=== PATIENT | male | born 1980 | race Caucasian/White ===

== ENCOUNTER 2016-09-05 20:09 | Emergency (ER) | payer SELFPAY ==
[~2016-09-05 20:09] MED LIST: NAPR500 PO; SUBO8MIS SL
[2016-09-05 20:11] VITALS: BP 155/97; PULSE 70; RESP 16; TEMP 98.6; O2SAT 100
--- NOTE | 2016-09-05 20:37 | PD ---
Physical Exam Time Seen by Provider: 20:36 Narrative 36yo M c/o R upper tooth pain since last night. Woke up with facial swelling this morning. Denies fever, vomiting. Patient seen in triage. VS reviewed. Awaiting bed placement. Data Data Last Documented VS Vital Signs Date Time Temp Pulse Resp B/P Pulse Ox O2 Delivery O2 Flow Rate FiO2 09/05/16 20:11 98.6 70 16 155/97 100 Room Air MDM Supervised Visit with JELLY: Danii Nina Sep 05, 2016 20:37
[2016-09-05] MEDS ORDERED: PENI500T PO (22:27)
--- NOTE | 2016-09-05 22:29 | PD ---
HPI Chief Complaint: Oral / Dental Pain or Problem Time Seen by Provider: 22:15 Travel History International Travel<30 days: No Contact w/Intl Traveler<30days: No Traveled to known affect area: No History of Present Illness HPI 36-year-old male arrives with right upper dentalgia and swelling of the right upper face. Symptoms started overnight. He reports fracturing the right upper first molar sometime ago. He's had no fever. The pain is worse with palpation. There is no radiation at this point. He states he is working to obtain a dentist appointment and will probably see one next week, approximately 7 days or so from now. PFSH Past Medical History Arthritis: No Asthma: No Autoimmune Disease: No Blood Disorders: No Anxiety: No Depression: No Heart Rhythm Problems: No Cancer: No Cardiovascular Problems: No High Cholesterol: No Chemotherapy: No Chest Pain: No Congestive Heart Failure: No COPD: No Cerebrovascular Accident: No Diabetes: No Endocrine: No GERD: No Glaucoma: No Genitourinary: No Headaches: No Hepatitis: No Hiatal Hernia: No Hypertension: No Kidney Stones: No Musculoskeletal: No Neurologic: No Psychiatric: No Respiratory: No Myocardial Infarction: No Radiation Therapy: No Renal Failure: No Seizures: No Sickle Cell Disease: No Sleep Apnea: No Thyroid Disease: No Ulcer: No Past Surgical History Abdominal Surgery: No AICD: No Cardiac Surgery: No Ear Surgery: No Endocrine Surgery: No Eye Surgery: No Genitourinary Surgery: No Gynecologic Surgery: No Oral Surgery: Yes (TONSILLECTOMY) Pacemaker: No Thoracic Surgery: No Tonsillectomy: Yes Other Surgery: Yes Social History Alcohol Use: Yes (denies) Tobacco Use: Yes (1 PK DAILY) Substance Use: Yes Allergies-Medications (Allergen,Severity, Reaction): Coded Allergies: No Known Allergies (Verified , 09/05/16) Reported Meds & Prescriptions Reported Meds & Active Scripts Active Penicillin V Potassium 500 Mg Tab 500 Mg PO Q6H 7 Days Naprosyn (Naproxen) 500 Mg Tab 500 Mg PO BID PRN Reported Suboxone 8 mg/2 mg 8 mg/2 mg Subl 1 Strip SL DAILY SUBLINGUAL STRIP. Review of Systems General / Constitutional: No: Fever Physical Exam Narrative GENERAL: 36 yo M, WNWD, NAD DENTITION: R upper first molar with fracture which is old/chronic, there is TTP though not severe; minimal swelling R face with minimal TTP; moderate generalized decay of dentition present throughout otherwise. SKIN: Warm and dry. HEAD: Normocephalic. EYES: No scleral icterus. No injection or drainage. NECK: Supple, trachea midline. No JVD or lymphadenopathy. Data Data Last Documented VS Vital Signs Date Time Temp Pulse Resp B/P Pulse Ox O2 Delivery O2 Flow Rate FiO2 09/05/16 20:11 98.6 70 16 155/97 100 Room Air VS reviewed Orders Penicillin V Potassium (Veetids) (09/05/16 22:30) MDM Medical Decision Making Medical Screen Exam Complete: Yes Emergency Medical Condition: Yes Medical Record Reviewed: Yes Differential Diagnosis Dental fracture, abscess, dental carry Narrative Course Scripts as below. Diagnosis Primary Impression: Dental abscess Additional Impression: Tooth fracture Qualified Code: S02.5XXA - Closed fracture of tooth, initial encounter Referrals: Dentist 1 week Additional Instructions: You have a choice when it comes to health care, and we are glad that you chose [facility]. Hopefully, we have met your expectations on today's visit. You are welcome to return to [facility] at any time, as we are committed to meeting the health care needs of our community. Med/Other Pt SpecificInfo: Prescription(s) given Scripts Penicillin V Potassium 500 Mg [id number] Mg PO Q6H 7 Days Ref 0 Prov:Lauri Bañuelos MD 09/05/16 Disposition: 01 DISCHARGE HOME Condition: Stable Lauri Bañuelos MD Sep 05, 2016 22:29
[2016-09-05] MEDS ORDERED: PENICILLIN V POTASSIUM 500 MG TAB PO ONE (22:30)
== END 2016-09-05 23:02 | disposition home or self-care (01) ==
LOC: NEPD 20:09
DX: K04.7 Periapical abscess without sinus (principal); S02.5XXA Fracture of tooth (traumatic), initial encounter for closed fracture; X58.XXXA Exposure to other specified factors, initial encounter
CPT/HCPCS: 99283

== ENCOUNTER 2016-11-04 17:23 | Emergency (ER) | payer SELFPAY ==
[~2016-11-04 17:23] MED LIST changes: +PENI500T PO
[2016-11-04 17:34] VITALS: BP 123/70; PULSE 80; RESP 18; TEMP 98.2; O2SAT 98
[2016-11-04 17:40] VITALS: BP 123/70; PULSE 70; RESP 12; TEMP 98.2; O2SAT 98
[2016-11-04] MEDS ORDERED: NALOXONE HCL 2 MG/2 ML VIAL IV PUSH ONE (17:45)
[2016-11-04] MEDS ORDERED: SODIUM CHLOR 0.9% 1000 ML INJ 1,000 ML IV SCH (18:00)
--- NOTE | 2016-11-04 18:24 | PD ---
HPI Chief Complaint: OD/ Ingestion Time Seen by Provider: 17:43 Travel History International Travel<30 days: No Contact w/Intl Traveler<30days: No Traveled to known affect area: No History of Present Illness HPI 36 years old male was brought in by EMS after patient was found with severe drowsiness this afternoon. Patient's acquaintance found patient was extremely drowsy this afternoon. Possible IV drug abuse. EMS was called. Patient was given Narcan 0.4 mg IV with improvement of mentation. Patient was transported to the ED. Patient denies any headache. Patient denies any neck pain. Patient denies any chest pain or shortness of breath. Patient denies abdominal pain. Patient denies any focal weakness or numbness remedy. Patient denies any IV drug abuse. Patient states that he has history of IV drug abuse in the past but not recently. PFSH Past Medical History Arthritis: No Asthma: No Autoimmune Disease: No Blood Disorders: No Anxiety: No Depression: No Heart Rhythm Problems: No Cancer: No Cardiovascular Problems: No High Cholesterol: No Chemotherapy: No Chest Pain: No Congestive Heart Failure: No COPD: No Cerebrovascular Accident: No Diabetes: No Endocrine: No Gastrointestinal Disorders: No GERD: No Glaucoma: No Genitourinary: No Headaches: No Hepatitis: No Hiatal Hernia: No Hypertension: No Kidney Stones: No Musculoskeletal: No Neurologic: No Psychiatric: No Respiratory: No Myocardial Infarction: No Radiation Therapy: No Renal Failure: No Seizures: No Sickle Cell Disease: No Sleep Apnea: No Thyroid Disease: No Ulcer: No Past Surgical History Abdominal Surgery: No AICD: No Cardiac Surgery: No Ear Surgery: No Endocrine Surgery: No Eye Surgery: No Genitourinary Surgery: No Gynecologic Surgery: No Neurologic Surgery: No Oral Surgery: Yes (TONSILLECTOMY) Pacemaker: No Thoracic Surgery: No Tonsillectomy: Yes Other Surgery: Yes Social History Alcohol Use: No Tobacco Use: No Substance Use: Yes (iv drug use) Allergies-Medications (Allergen,Severity, Reaction): Coded Allergies: No Known Allergies (Verified , 11/04/16) Reported Meds & Prescriptions Reported Meds & Active Scripts Active Penicillin V Potassium 500 Mg Tab 500 Mg PO Q6H 7 Days Naprosyn (Naproxen) 500 Mg Tab 500 Mg PO BID PRN Reported Suboxone 8 mg/2 mg 8 mg/2 mg Subl 1 Strip SL DAILY SUBLINGUAL STRIP. Review of Systems General / Constitutional: No: Fever Eyes: No: Visual changes HENT: No: Headaches Cardiovascular: No: Chest Pain or Discomfort Respiratory: No: Shortness of Breath Gastrointestinal: No: Abdominal Pain Genitourinary: No: Dysuria Musculoskeletal: No: Pain Skin: No Rash Neurologic: No: Weakness Psychiatric: No: Depression Endocrine: No: Polydipsia Hematologic/Lymphatic: No: Easy Bruising Physical Exam Narrative GENERAL: Well-nourished, well-developed patient. SKIN: Focused skin assessment warm/dry. HEAD: Normocephalic. EYES: No scleral icterus. No injection or drainage. Pinpoint pupils. NECK: Supple, trachea midline. No JVD or lymphadenopathy. CARDIOVASCULAR: Regular rate and rhythm without murmurs, gallops, or rubs. RESPIRATORY: Breath sounds equal bilaterally. No accessory muscle use. GASTROINTESTINAL: Abdomen soft, non-tender, nondistended. MUSCULOSKELETAL: No cyanosis, or edema. Patient has track lyman on the right arm antecubital area and forearm area. BACK: Nontender without obvious deformity. No CVA tenderness. Neurologic exam: Patient is a lethargic however answer questions appropriately. Patient moves all extremity well. No obvious focal neurological deficit. Patient has a steady gait. Data Data Last Documented VS Vital Signs Date Time Temp Pulse Resp B/P Pulse Ox O2 Delivery O2 Flow Rate FiO2 11/04/16 17:40 98.2 70 12 123/70 98 2 11/04/16 17:40 Room Air Orders Electrocardiogram (11/04/16 17:43) Complete Blood Count With Diff (11/04/16 17:43) Comprehensive Metabolic Panel (11/04/16 17:43) Creatine Kinase (Cpk) (11/04/16 17:43) Troponin I (11/04/16 17:43) Prothrombin Time / Inr (Pt) (11/04/16 17:43) Act Partial Throm Time (Ptt) (11/04/16 17:43) Urinalysis - C+S If Indicated (11/04/16 17:43) Iv Access Insert/Monitor (11/04/16 17:43) Ecg Monitoring (11/04/16 17:43) Oximetry (11/04/16 17:43) Drug Screen, Random Urine (11/04/16 17:43) Alcohol (Ethanol) (11/04/16 17:43) Naloxone Inj (Narcan Inj) (11/04/16 17:45) Sodium Chlor 0.9% 1000 Ml Inj (Ns 1000 M (11/04/16 18:00) MDM Medical Decision Making Medical Screen Exam Complete: Yes Emergency Medical Condition: Yes Differential Diagnosis Differential diagnosis including drug abuse, electrolyte imbalance, dehydration , TIA, CVA, sepsis. Narrative Course 36 years old male was brought in for drowsiness. Possible history of IV drug abuse. Patient denies IV drug abuse however patient has track lyman on the right arm which he told me that they are not new. Patient decided to leave AMA , refused blood test x-ray CT. Patient warned of risk of leaving. Diagnosis Primary Impression: Altered mental status Qualified Code: R40.4 - Transient alteration of awareness Patient Instructions: General Instructions Additional Instructions: Patient leaves AMA. Disposition: 07 AGAINST MEDICAL ADVICE Condition: Serious Jack Celeste MD Nov 04, 2016 18:24
== END 2016-11-04 18:51 | disposition left against medical advice (07) ==
LOC: NEPC 17:23
DX: R40.4 Transient alteration of awareness (principal)
CPT/HCPCS: 99283

== ENCOUNTER 2017-04-22 09:47 | Emergency (ER) | payer SELFPAY ==
[~2017-04-22] VITALS: Ht 170.2 cm; Wt 68.0 kg
[2017-04-22 09:53] VITALS: BP 126/79; PULSE 90; RESP 16; TEMP 98.8; O2SAT 97
--- NOTE | 2017-04-22 10:36 | PD ---
HPI Chief Complaint: Pain: Acute or Chronic Time Seen by Provider: 10:21 Travel History International Travel<30 days: No Contact w/Intl Traveler<30days: No Traveled to known affect area: No History of Present Illness HPI Patient comes in complaining of right knee pain ongoing for 3 days. Patient states pain burning-like sensation anterior aspect of right knee. Patient denies any radiation of pain. Patient has been taking ibuprofen for the pain with minimal relief of symptoms. Pains worse with walking. Patient denies any known injury or previous episodes like this. Denies any fevers, chest pain, shortness of breath, numbness or tingling, or weakness. PFSH Past Medical History Arthritis: No Asthma: No Autoimmune Disease: No Blood Disorders: No Anxiety: No Depression: No Heart Rhythm Problems: No Cancer: No Cardiovascular Problems: No High Cholesterol: No Chemotherapy: No Chest Pain: No Congestive Heart Failure: No COPD: No Cerebrovascular Accident: No Diabetes: No Endocrine: No Gastrointestinal Disorders: No GERD: No Glaucoma: No Genitourinary: No Headaches: No Hepatitis: No Hiatal Hernia: No Hypertension: No Kidney Stones: No Musculoskeletal: No Neurologic: No Psychiatric: No Respiratory: No Myocardial Infarction: No Radiation Therapy: No Renal Failure: No Seizures: No Sickle Cell Disease: No Sleep Apnea: No Thyroid Disease: No Ulcer: No Past Surgical History Abdominal Surgery: No AICD: No Cardiac Surgery: No Ear Surgery: No Endocrine Surgery: No Eye Surgery: No Genitourinary Surgery: No Gynecologic Surgery: No Neurologic Surgery: No Oral Surgery: Yes (TONSILLECTOMY) Pacemaker: No Thoracic Surgery: No Tonsillectomy: Yes Other Surgery: Yes Social History Alcohol Use: No Tobacco Use: No Substance Use: Yes (iv drug use) Allergies-Medications (Allergen,Severity, Reaction): Coded Allergies: No Known Allergies (Verified Adverse Reaction, Unknown, 04/22/17) Reported Meds & Prescriptions Reported Meds & Active Scripts Active Diclofenac Sodium DR (Diclofenac Sodium) 75 Mg Tabdr 75 Mg PO Q12HR PRN Penicillin V Potassium 500 Mg Tab 500 Mg PO Q6H 7 Days Naprosyn (Naproxen) 500 Mg Tab 500 Mg PO BID PRN Reported Suboxone 8 mg/2 mg 8 mg/2 mg Subl 1 Strip SL DAILY SUBLINGUAL STRIP. Review of Systems Except as stated in HPI: all other systems reviewed are Neg Physical Exam Narrative GENERAL: Well-developed, well nourished, in no acute distress, and non-ill appearing. SKIN: Focused skin assessment warm and dry. HEAD: Atraumatic. Normocephalic. EYES: Pupils equal and round. EOMI. No scleral icterus. No injection or drainage. ENT: No nasal bleeding or discharge. Mucous membranes pink and moist. NECK: Trachea midline. Supple. No nuclear rigidity. CARDIOVASCULAR: Dorsal pulses 2+, intact, equal bilaterally. Capillary refill less than 2 seconds. RESPIRATORY: No accessory muscle use. No respiratory distress. MUSCULOSKELETAL: No obvious deformities. No clubbing. No cyanosis. No edema. Full range of motion. Knee: Negative patellar apprehension, varus and valgus maneuvers, anterior draw test, and María test. Pulses equal BL distal to injury. Capillary refill less than 2 seconds distal to injury and equal BL. FROM distal to injury and equal BL. Strength distal to injury equal BL. NV intact distal to injury. Dorsal pulses equal BL. Sensation equal BL 1st web space. Patient reports tenderness to palpation over the prepatellar bursa small fluid collection noted. It is afebrile, nonerythematous, without crepitus. There is no signs of infection. NEUROLOGICAL: Awake and alert. No obvious cranial nerve deficits. Motor grossly within normal limits. Normal speech. PSYCHIATRIC: Appropriate mood and affect; insight and judgment normal. Data Data Last Documented VS Vital Signs Date Time Temp Pulse Resp B/P (MAP) Pulse Ox O2 Delivery O2 Flow Rate FiO2 04/22/17 10:56 04/22/17 09:53 98.8 90 16 97 Orders Orders Ed Discharge Order (04/22/17 10:31) Splint Or Brace Apply/Monitor (04/22/17 10:31) [facility] Medical Decision Making Medical Screen Exam Complete: Yes Emergency Medical Condition: Yes Differential Diagnosis Fracture, strain, contusion, bursitis, septic joint, gout, pseudogout Narrative Course The patient appears to have acute bursitis involving the right knee. There is no evidence to suggest infectious bursitis at this time. There is no trauma to suspect contusion, strain or fracture. There is no clinical evidence to suggest gout or pseudogout, osteoarthritis, Rheumatoid arthritis, or septic arthritis. There is also no evidence to suggest tendonitis. The patient was placed on NSAID medication. The patient was instructed on ice packs as well. The patient was instructed to follow-up with to orthopedics. The patient agreed with plan. Patient in no obvious distress upon re-evaluation. Patient was asked if they wanted to speak to my attending, which the patient did not wish to do at this time. Any questions/concerns in reference to patient diagnosis/condition discussed and clarified prior to patient's discharge. Reinforced sheer importance of close follow up with patient's primary physician or primary care clinic. Instructed patient to return to ED immediately, if symptoms return/ worsen. Patient showed understanding of above instructions. Further instructions and recommendations were detailed in discharge paperwork. Patient ambulated without difficulty out of ED at discharge. Diagnosis Primary Impression: Bursitis of right knee Qualified Codes: M70.41 - Prepatellar bursitis, right knee Referrals: Sukhdev Gilbert MD [facility] Patient Instructions: General Instructions, Knee Bursitis (ED) Additional Instructions: Follow-up with your primary care physician and/or orthopedics this week for reevaluation. Take all medication as prescribed. Apply ice to affected area 20 minutes per hour as needed for pain. Return to the emergency department if symptoms get worse. Med/Other Pt SpecificInfo: Prescription(s) given Scripts Diclofenac Sodium DR (Diclofenac Sodium DR) 75 Mg Tabdr 75 MG PO Q12HR Y for PAIN SCALE 1 TO 10, #14 TAB 0 Refills Prov: Christine Cueto MD 04/22/17 Disposition: 01 DISCHARGE HOME Condition: Stable Mike Anthony Apr 22, 2017 10:36
[2017-04-22] MEDS ORDERED: DICL75TA PO (10:37)
== END 2017-04-22 11:00 | disposition home or self-care (01) ==
LOC: NEPK 09:47
DX: M70.41 Prepatellar bursitis, right knee (principal)
CPT/HCPCS: 99283

== ENCOUNTER 2017-04-23 09:41 | Inpatient (IN) | payer SELFPAY ==
[~2017-04-23] VITALS: Ht 170.2 cm; Wt 63.7 kg
[~2017-04-23 09:41] MED LIST changes: +DICL75TA PO
[2017-04-23 09:44] VITALS: BP 128/82; PULSE 98; RESP 14; TEMP 98.7; O2SAT 99
--- NOTE | 2017-04-23 10:39 | PD ---
HPI Chief Complaint: Musculoskeletal Complaint Time Seen by Provider: 10:18 Travel History International Travel<30 days: No Contact w/Intl Traveler<30days: No Traveled to known affect area: No History of Present Illness HPI 37-year-old male complains of right knee pain, right ankle pain, right leg pain , headache, body ache, bilateral lower extremity pain. Patient is IV drug user. Patient states that he started having right knee pain for the past 4 days. Patient states that he started having right ankle pain since yesterday. Patient states the pain as sharp pain localized to the right knee and right ankle. Patient states that he has aching pain bilateral lower extremity also. Patient denies any pain radiation. Patient denies any fever chills. Patient states the headache as mild aching headache. Patient denies any visual change. Patient denies any neck pain. Patient denies any chest pain or shortness of breath. Patient denies abdominal pain. Patient denies any nausea vomiting diarrhea. Patient complained of rash on the right lower extremity also. Patient noticed a rash for the past several days. Patient with seen emergency room yesterday an given prescription for NSAIDs for knee pain. PFSH Past Medical History Arthritis: No Asthma: No Blood Disorders: No Anxiety: No Depression: No Heart Rhythm Problems: No Cancer: No Cardiovascular Problems: No High Cholesterol: No Chemotherapy: No Chest Pain: No Congestive Heart Failure: No COPD: No Cerebrovascular Accident: No Diabetes: No Diminished Hearing: No Endocrine: No Gastrointestinal Disorders: No GERD: No Glaucoma: No Genitourinary: No Headaches: No Hepatitis: No Hiatal Hernia: No Hypertension: No Kidney Stones: No Musculoskeletal: No Neurologic: No Psychiatric: No Reproductive: No Respiratory: No Myocardial Infarction: No Radiation Therapy: No Renal Failure: No Seizures: No Sickle Cell Disease: No Sleep Apnea: No Thyroid Disease: No Ulcer: No Tetanus Vaccination: < 5 Years Influenza Vaccination: No Past Surgical History Abdominal Surgery: No AICD: No Cardiac Surgery: No Ear Surgery: No Endocrine Surgery: No Eye Surgery: No Genitourinary Surgery: No Gynecologic Surgery: No Insulin Pump: No Neurologic Surgery: No Oral Surgery: Yes (TONSILLECTOMY) Pacemaker: No Thoracic Surgery: No Tonsillectomy: Yes Other Surgery: Yes Social History Alcohol Use: No Tobacco Use: No Substance Use: Yes (iv drug use) Allergies-Medications (Allergen,Severity, Reaction): Coded Allergies: No Known Allergies (Verified Adverse Reaction, Unknown, 04/23/17) Reported Meds & Prescriptions Reported Meds & Active Scripts Active No Active Prescriptions or Reported Medications Review of Systems General / Constitutional: No: Fever Eyes: No: Visual changes HENT: Positive: Headaches Cardiovascular: No: Chest Pain or Discomfort Respiratory: No: Shortness of Breath Gastrointestinal: No: Abdominal Pain Genitourinary: No: Dysuria Musculoskeletal: Positive: Pain Skin: No Rash Neurologic: No: Weakness Psychiatric: No: Depression Endocrine: No: Polydipsia Hematologic/Lymphatic: No: Easy Bruising Physical Exam Narrative GENERAL: Well-nourished, well-developed patient. SKIN: Focused skin assessment warm/dry. HEAD: Normocephalic. EYES: No scleral icterus. No injection or drainage. NECK: Supple, trachea midline. No JVD or lymphadenopathy. CARDIOVASCULAR: Regular rate and rhythm without murmurs, gallops, or rubs. RESPIRATORY: Breath sounds equal bilaterally. No accessory muscle use. GASTROINTESTINAL: Abdomen soft, non-tender, nondistended. MUSCULOSKELETAL: Patient had mild soft tissue swelling diffusely over the right knee. Full range of motion the right knee. Knee joint stable. Moderate diffuse tenderness of the right knee joint. Patient has moderate diffuse soft tissue swelling of the right ankle moderate tenderness on palpation of right ankle. Patient has mild ecchymosis right lower leg. Patient has mild tenderness to palpation bilateral calf area. Negative Homans sign. BACK: Nontender without obvious deformity. No CVA tenderness. Neurologic exam normal. Data Data Last Documented VS Vital Signs Date Time Temp Pulse Resp B/P (MAP) Pulse Ox O2 Delivery O2 Flow Rate FiO2 04/23/17 11:11 88 15 98 Room Air 04/23/17 09:44 98.7 Orders Orders Complete Blood Count With Diff (04/23/17 10:24) Comprehensive Metabolic Panel (04/23/17 10:24) Creatine Kinase (Cpk) (04/23/17 10:24) Prothrombin Time / Inr (Pt) (04/23/17 10:24) Act Partial Throm Time (Ptt) (04/23/17 10:24) Blood Culture (04/23/17 10:24) C-Reactive Protein (Crp) (04/23/17 10:24) Urinalysis - C+S If Indicated (04/23/17 10:24) Westergren Sedimentation Rate (04/23/17 10:24) Iv Access Insert/Monitor (04/23/17 10:24) Ecg Monitoring (04/23/17 10:24) Oximetry (04/23/17 10:24) Drug Screen, Random Urine (04/23/17 10:24) Lactic Acid (04/23/17 10:24) Us Leg Venous Doppler Bilat (04/23/17 10:30) Ketorolac Inj (Toradol Inj) (04/23/17 11:00) CKMB (04/23/17 11:00) CKMB% (04/23/17 11:00) Vancomycin Inj (Vancomycin Inj) (04/23/17 12:30) Admit Order (Ed Use Only) (04/23/17 13:02) Piperacil-Tazo 3.375 Gm Premix (Zosyn 3. (04/23/17 13:15) Labs Laboratory Tests Test 04/23/17 11:00 White Blood Count 10.8 TH/MM3 Red Blood Count 4.22 MIL/MM3 Hemoglobin 13.0 GM/DL Hematocrit 37.3 % Mean Corpuscular Volume 88.3 FL Mean Corpuscular Hemoglobin 30.9 PG Mean Corpuscular Hemoglobin Concent 34.9 % Red Cell Distribution Width 14.9 % Platelet Count 148 TH/MM3 Mean Platelet Volume 8.4 FL Neutrophils (%) (Auto) 78.8 % Lymphocytes (%) (Auto) 12.7 % Monocytes (%) (Auto) 8.2 % Eosinophils (%) (Auto) 0.1 % Basophils (%) (Auto) 0.2 % Neutrophils # (Auto) 8.5 TH/MM3 Lymphocytes # (Auto) 1.4 TH/MM3 Monocytes # (Auto) 0.9 TH/MM3 Eosinophils # (Auto) 0.0 TH/MM3 Basophils # (Auto) 0.0 TH/MM3 CBC Comment DIFF FINAL Differential Comment Erythrocyte Sedimentation Rate 37 mm/hr Prothrombin Time 9.8 SEC Prothromb Time International Ratio 1.0 RATIO Activated Partial Thromboplast Time 25.9 SEC Blood Urea Nitrogen 12 MG/DL Creatinine 0.53 MG/DL Random Glucose 107 MG/DL Total Protein 6.5 GM/DL Albumin 2.9 GM/DL Calcium Level 8.3 MG/DL Alkaline Phosphatase 72 U/L Aspartate Amino Transf (AST/SGOT) 36 U/L Alanine Aminotransferase (ALT/SGPT) 28 U/L Total Bilirubin 0.5 MG/DL Sodium Level 139 MEQ/L Potassium Level 3.8 MEQ/L Chloride Level 104 MEQ/L Carbon Dioxide Level 29.1 MEQ/L Anion Gap 6 MEQ/L Estimat Glomerular Filtration Rate 175 ML/MIN Lactic Acid Level 0.7 mmol/L Total Creatine Kinase 965 U/L Creatine Kinase MB 5.3 NG/ML Creatine Kinase MB % 0.5 % C-Reactive Protein 10.20 MG/DL MDM Medical Decision Making Medical Screen Exam Complete: Yes Emergency Medical Condition: Yes Differential Diagnosis Differential diagnosis include musculoskeletal, cellulitis, septic joint, DVT Narrative Course 37-year-old male with bilateral lower extremity pain, right knee pain, R ankle pain with swelling, ecchymosis rash on the right lower leg. Normal saline solution 1 25 cc an hour. Vancomycin 1 g IV given. Zosyn 3.375 g IV given. Diagnosis Primary Impression: Cellulitis of right leg Additional Impression: IV drug abuse Admitting Information Admitting Physician Requests: Admit Scripts No Active Prescriptions or Reported Meds Jack Celeste MD Apr 23, 2017 10:39
[2017-04-23] MEDS ORDERED: KETOROLAC TROMETHAMINE 30 MG/ML (IVP) VIAL IV PUSH ONE (11:00)
[2017-04-23 11:11] VITALS: PULSE 88; RESP 15; O2SAT 98
[2017-04-23 11:23] LABS: AUTOMATED NEUTROPHIL # 8.5 TH/MM3 (1.8-7.7); BASOPHIL % 0.2 % (0.0-2.0); EOSINOPHIL % 0.1 % (0.0-4.0); HEMATOCRIT 37.3 % (39.0-51.0); LYMPH % 12.7 % (9.0-44.0); LYMPHOCYTE # 1.4 TH/MM3 (1.0-4.8); MEAN CELL VOLUME 88.3 FL (80.0-100.0); MEAN CORPUSCULAR HEMOGLOBIN 30.9 PG (27.0-34.0); MEAN CORPUSCULAR HGB CONC 34.9 % (32.0-36.0); MEAN PLATELET VOLUME 8.4 FL (7.0-11.0); MONO % 8.2 % (0.0-8.0); MONOCYTE # 0.9 TH/MM3 (0-0.9); NEUT % 78.8 % (16.0-70.0); PLATELET COUNT 148 TH/MM3 (150-450); RED BLOOD COUNT 4.22 MIL/MM3 (4.50-5.90); RED CELL DISTRIBUTION WIDTH 14.9 % (11.6-17.2); WHITE BLOOD COUNT 10.8 TH/MM3 (4.0-11.0)
[2017-04-23 11:30] LABS: PROTHROMBIN TIME - PATIENT 9.8 SEC (9.8-11.6)
[2017-04-23 11:39] LABS: ALBUMIN 2.9 GM/DL (3.4-5.0); ALT (GPT) 28 U/L (12-78); AST (GOT) 36 U/L (15-37); BICARBONATE 29.1 MEQ/L (21.0-32.0); BLOOD UREA NITROGEN 12 MG/DL (7-18); CALCIUM 8.3 MG/DL (8.5-10.1); CHLORIDE 104 MEQ/L (98-107); CREATININE 0.53 MG/DL (0.60-1.30); GLOMERULAR FILTRATION RATE 175 ML/MIN (>89); GLUCOSE,RANDOM 107 MG/DL (74-106); SODIUM (NA) 139 MEQ/L (136-145)
[2017-04-23 11:41] LABS: ALKALINE PHOSPHATASE 72 U/L (45-117); TOTAL BILIRUBIN ADULT 0.5 MG/DL (0.2-1.0); TOTAL PROTEIN 6.5 GM/DL (6.4-8.2)
--- NOTE | 2017-04-23 11:47 | RADRPT ---
EXAM DATE/TIME: 04/23/2017 10:58 [facility] COMPARISON: No previous studies available for comparison. INDICATIONS : Bilateral leg pain. MEDICAL HISTORY : IV drug use. SURGICAL HISTORY : Tonsillectomy. Orthopedic surgery, wrist and bilateral ankles. ENCOUNTER: Initial ACUITY: 1 day PAIN SCORE: 2/10 LOCATION: Bilateral legs. TECHNIQUE: Venous ultrasound of the left and right leg was performed from the inguinal ligament to the proximal calf. Real-time, color Doppler and spectral tracing, compression and augmentation techniques were us ed. FINDINGS: RIGHT LEG: There is normal compressibility of the deep venous system from the inguinal region to the proximal ca lf. No echogenic clot is seen in the lumen of the common femoral, femoral, popliteal, and posterior tibial veins. There is a normal response of the venous system to proximal and distal augmentation an d respiration. LEFT LEG: There is normal compressibility of the deep venous system from the inguinal region to the proximal ca lf. No echogenic clot is seen in the lumen of the common femoral, femoral, popliteal, and posterior tibial veins. There is a normal response of the venous system to proximal and distal augmentation an d respiration. CONCLUSION: 1. Negative for deep venous thrombosis. Cruz Levi MD on April 23, 2017 at 11:45 Board Certified Radiologist. This report was verified electronically.
[2017-04-23] MEDS ORDERED: VANCOMYCIN 1 GM/200 ML INJ 200 ML IV SCH (12:30)
--- NOTE | 2017-04-23 12:52 | HHI.HP ---
HPI Service Family Medicine Primary Care Physician No Primary Care Physician Admission Diagnosis Diagnoses: International Travel<30 Days: No Contact w/Intl Traveler<30days: No Known Affected Area: No History of Present Illness 37 y/o M, comes in with worsening knee pain x 3 days. He was biking 3 days ago and noticed that the pain was increasing and the knee was swelling. He went to the ED yesterday for the knee pain and the NSAIDs they discharged him on for pain did not help. He noticed this morning when he woke up at 6AM that his whole leg is red and he has a throbbing 10/10 pain (from 6/10 the day before) that extends from his groin to his ankle. He also feels like "his whole body is sore, like he has the flu". Both of his calves are painful, he states perhaps the left calf is also painful because he has to overcompensate with that leg. Denies fever/chills. He is feeling some numbness around his right ankle because of the pain and it has been difficult for him to walk. He denies any recent scrapes or puncture wounds. He is an IVDU and used his right arm to inject heroin 2 days ago. He was tested for all STDs 2 months ago while he was incarcerated and results were negative. Denies N/V. Denies diarrhea/ constipation. Denies CP. Denies recurrent or acute SOB/dizziness. Review of Systems Constitutional: DENIES: Fatigue, Fever Endocrine: DENIES: Polyphagia Eyes: DENIES: Vision loss, Photosensitivity Ears, nose, mouth, throat: DENIES: Nasal discharge, Oral lesions Respiratory: DENIES: Cough, Snoring Cardiovascular: DENIES: Dyspnea on Exertion, PND Gastrointestinal: DENIES: Nausea, Vomiting Genitourinary: DENIES: Sexual dysfunction, Urinary frequency Integumentary: DENIES: Nail changes, Pruritus Immunologic/allergic: DENIES: Urticaria Neurologic: DENIES: Headache, Paresthesias Psychiatric: DENIES: Depression, Hallucinations Past Family Social History Past Medical History Patient states he has no medical problems He saw PCP during his incarceration and stated that all of his check ups were normal Past Surgical History None per patient Allergies: Coded Allergies: No Known Allergies (Verified Adverse Reaction, Unknown, 04/23/17) Family History Noncontributory per patient Social History incarcarated for 2 months, get out last week, lives in a house with girlfriends family, smokes 1ppd x 15 years, no alcohol, + heroin use; does not share needles, gets needles from pharmacy, states he will not go into withdrawl here, has been through rehab programs before and tried Suboxone, he is not willing to try rehabilitation again at this time Physical Exam Vital Signs Vital Signs Date Time Temp Pulse Resp B/P (MAP) Pulse Ox O2 Delivery O2 Flow Rate FiO2 04/23/17 11:11 88 15 98 Room Air 04/23/17 09:44 98.7 98 14 128/82 (97) 99 Physical Exam GENERAL: This is a well-nourished, well-developed patient, in no apparent distress. SKIN: No rashes, ecchymoses or lesions. Cool and dry. HEAD: Atraumatic. Normocephalic. No temporal or scalp tenderness. EYES: Pupils equal round and reactive. Extraocular motions intact. No scleral icterus. No injection or drainage. ENT: Nose without bleeding, purulent drainage or septal hematoma. Throat without erythema, tonsillar hypertrophy or exudate. Uvula midline. Airway patent. NECK: Trachea midline. No JVD or lymphadenopathy. Supple, nontender, no meningeal signs. CARDIOVASCULAR: Regular rate and rhythm, soft 2/6 systolic murmur, no gallops, or rubs. RESPIRATORY: Clear to auscultation. Breath sounds equal bilaterally. No wheezes , rales, or rhonchi. GASTROINTESTINAL: Abdomen soft, non-tender, nondistended. No hepato-splenomegaly , or palpable masses. No guarding. MUSCULOSKELETAL: Bilateral lower calves with significant swelling. Right knee with mild to moderate effusion, no erythema of knee joint, erythema from under knee to ankle with multiple red spots over her medial aspect of ankle, tenderness to moderate palpation over both calves bilaterally, negative Homans sign NEUROLOGICAL: Awake and alert. Cranial nerves II through XII intact. Motor and sensory grossly within normal limits. Five out of 5 muscle strength in all muscle groups. Normal speech. Laboratory Laboratory Tests Test 04/23/17 11:00 White Blood Count 10.8 Red Blood Count 4.22 Hemoglobin 13.0 Hematocrit 37.3 Mean Corpuscular Volume 88.3 Mean Corpuscular Hemoglobin 30.9 Mean Corpuscular Hemoglobin Concent 34.9 Red Cell Distribution Width 14.9 Platelet Count 148 Mean Platelet Volume 8.4 Neutrophils (%) (Auto) 78.8 Lymphocytes (%) (Auto) 12.7 Monocytes (%) (Auto) 8.2 Eosinophils (%) (Auto) 0.1 Basophils (%) (Auto) 0.2 Neutrophils # (Auto) 8.5 Lymphocytes # (Auto) 1.4 Monocytes # (Auto) 0.9 Eosinophils # (Auto) 0.0 Basophils # (Auto) 0.0 CBC Comment DIFF FINAL Differential Comment Erythrocyte Sedimentation Rate 37 Prothrombin Time 9.8 Prothromb Time International Ratio 1.0 Activated Partial Thromboplast Time 25.9 Blood Urea Nitrogen 12 Creatinine 0.53 Random Glucose 107 Total Protein 6.5 Albumin 2.9 Calcium Level 8.3 Alkaline Phosphatase 72 Aspartate Amino Transf (AST/SGOT) 36 Alanine Aminotransferase (ALT/SGPT) 28 Total Bilirubin 0.5 Sodium Level 139 Potassium Level 3.8 Chloride Level 104 Carbon Dioxide Level 29.1 Anion Gap 6 Estimat Glomerular Filtration Rate 175 Lactic Acid Level 0.7 Total Creatine Kinase 965 Creatine Kinase MB 5.3 Creatine Kinase MB % 0.5 C-Reactive Protein 10.20 Date/Time Source Procedure Growth Status 04/23/17 11:05 Blood Peripheral Aerobic Blood Culture Pending Received 04/23/17 11:05 Blood Peripheral Anaerobic Blood Culture Pending Received Result Diagram: 04/23/17 1100 04/23/17 1100 Septic Shock Reassessment Septic shock perfusion: reassessment completed Caprini VTE Risk Assessment Caprini VTE Risk Assessment: Mod/High Risk (score >= 2) Caprini Risk Assessment Model Point Value = 1 Point Value = 2 Point Value = 3 Point Value = 5 Age 41-60 Minor surgery BMI > 25 kg/m2 Swollen legs Varicose veins or History of unexplained or recurrent spontaneous Oral contraceptives or hormone replacement Sepsis (< 1 month) Serious lung disease, including pneumonia (< 1 month) Abnormal pulmonary function Acute myocardial infarction Congestive heart failure (< 1 month) History of inflammatory bowel disease Medical patient at bed rest Age 61-74 Arthroscopic surgery Major open surgery (> 45 min) Laparoscopic surgery (> 45 min) Malignancy Confined to bed (> 72 hours) Immobilizing plaster cast Central venous access Age >= 75 History of VTE Family history of VTE Factor V Leiden Prothrombin [id number] Lupus anticoagulant Anticardiolipin antibodies Elevated serum homocysteine Heparin-induced thrombocytopenia Other congenital or acquired thrombophilia Stroke (< 1 month) Elective arthroplasty Hip, pelvis, or leg fracture Acute spinal cord injury (< 1 month) Prophylaxis Regimen Total Risk Factor Score Risk Level Prophylaxis Regimen 0-1 Low Early ambulation 2 Moderate Order ONE of the following: *Sequential Compression Device (SCD) *Heparin 5000 units SQ BID 3-4 Higher Order ONE of the following medications: *Heparin 5000 units SQ TID *Enoxaparin/Lovenox 40 mg SQ daily (WT < 150 kg, CrCl > 30 mL/min) *Enoxaparin/Lovenox 30 mg SQ daily (WT < 150 kg, CrCl > 10-29 mL/min) *Enoxaparin/Lovenox 30 mg SQ BID (WT < 150 kg, CrCl > 30 mL/min) AND/OR *Sequential Compression Device (SCD) 5 or more Highest Order ONE of the following medications: *Heparin 5000 units SQ TID (Preferred with Epidurals) *Enoxaparin/Lovenox 40 mg SQ daily (WT < 150 kg, CrCl > 30 mL/min) *Enoxaparin/Lovenox 30 mg SQ daily (WT < 150 kg, CrCl > 10-29 mL/min) *Enoxaparin/Lovenox 30 mg SQ BID (WT < 150 kg, CrCl > 30 mL/min) AND *Sequential Compression Device (SCD) Assessment and Plan Assessment and Plan 37-year-old male, history of IV drug use, presents with progressive right knee, leg, and ankle pain 3 days with progressive erythema and swelling of right calf. Likely cellulitis with possible early osteomyelitis Code Status Full Code Discussed Condition With Dr. Carolyn Robison home Problem List: (1) Bursitis of right knee ICD Codes: M70.51 - Other bursitis of knee, right knee Status: Acute Plan: Likely related to emerging cellulitis versus septic arthritis versus mechanical tear of knee - See plan for cellulitis below - Follow-up MRI of knee (2) Cellulitis of right leg ICD Codes: L03.115 - Cellulitis of right lower limb Status: Acute Plan: Likely cellulitis, related to IV drug use - Keep legs elevated, no topical antibiotics - We expect 48 hours for improvement on IV antibiotics - Need to monitor for improvement - Vancomycin with consult - Zosyn 4.5 every 6 hours, monitor creatinine - Controlled NSAIDs - f/u blood culture - ESR high at 37 - Possible osteomyelitis as seen on MRI - Consult ID for osteo-myelitis in IV drug user - Follow up echocardiogram Ultrasound: Negative (3) IV drug abuse ICD Codes: F19.10 - Other psychoactive substance abuse, uncomplicated Status: Acute Plan: UDS positive for opiates and amphetamines Continue to monitor for signs of withdrawal (4) fen/ppx Status: Acute Plan: Fluids: Normal saline at maintenance Electrolytes: BMP normal Nutrition: Regular diet DVT prophylaxis: Lovenox 40 mg daily Physician Certification 2 Midnight Certification Type: Admission for Inpatient Services Order for Inpatient Services The services are ordered in accordance with Medicare regulations or non- Medicare payer requirements, as applicable. In the case of services not specified as inpatient-only, they are appropriately provided as inpatient services in accordance with the 2-midnight benchmark. Estimated LOS (days): 2 days is the estimated time the patient will need to remain in the hospital, assuming treatment plan goals are met and no additional complications. Post-Hospital Plan: Home Cynthia Yeh MD R2 Apr 23, 2017 12:52
[2017-04-23] MEDS ORDERED: PIPERACIL-TAZO 3.375 GM PREMIX 50 ML IV ONE (13:15)
[2017-04-23] MEDS ORDERED: ACETAMINOPHEN 500 MG CPLT PO PRN (13:30)
[2017-04-23] MEDS ORDERED: Vancomycin Consult Pharmacy 1 EA OTHER SCH (13:30)
[2017-04-23] MEDS ORDERED: VANCOMYCIN 1,000 MG/NS 250 ML IV SCH ×2 (13:30)
[2017-04-23] MEDS ORDERED: NALOXONE HCL 0.4 MG/ML AMP IV PUSH PRN (13:45)
[2017-04-23] MEDS ORDERED: KETOROLAC TROMETHAMINE 30 MG/ML (IVP) VIAL IV PUSH PRN (13:45)
[2017-04-23] MEDS ORDERED: ACETAMINOPHEN 325 MG TAB PO PRN (14:00)
[2017-04-23 14:13] LABS: BILIRUBIN, URINE NEG (NEG); BLOOD, URINE SMALL (NEG); GLUCOSE,URINE NEG (NEG); KETONE, URINE TRACE mg/dL (NEG); MUCUS URINE FEW /lpf (OCC); NITRITE,URINE NEG (NEG); PH, URINE 6.5 (5.0-8.5); URINE COLOR YELLOW (YELLW/STRAW); URINE LEUKOCYTE ESTERASE TRACE (NEG)
[2017-04-23] MEDS ORDERED: diphenhydrAMINE HCL 50 MG/ML VIAL IV PUSH ONE (14:15)
[2017-04-23] MEDS: SODIUM CHLOR 0.9% 1000 ML INJ 1,000 ML IV SCH ×2 (14:19→21:09)
[2017-04-23] MEDS ORDERED: GADODIAMIDE PF 287 MG/ML 5 ML VIAL (for RAD MRI) IV PUSH ONE (15:36)
[2017-04-23 16:03] VITALS: BP 113/56; PULSE 52; RESP 17; TEMP 97.5; O2SAT 100
--- NOTE | 2017-04-23 16:12 | RADRPT ---
EXAM DATE/TIME: 04/23/2017 14:53 [facility] COMPARISON: US LEG BILATERAL VENOUS DOPPLER, April 23, 2017, 10:58. INDICATIONS : Osteomyelitis. Pain and swelling. Denies injury. CONTRAST: 13 cc Omniscan (gadodiamide) IV MEDICAL HISTORY : None. SURGICAL HISTORY : Tonsillectomy. Wrist. ENCOUNTER: Subsequent ACUITY: 2 day PAIN SCORE: 5/10 LOCATION: Right knee TECHNIQUE: Multiplanar multisequence MRI examination of the knee was performed with and without contrast. FINDINGS: There is extensive edema in the subcutaneous soft tissues and also in the distal thigh musculature es pecially posteriorly. There is a moderate knee joint effusion with some rim enhancement postcontrast. There is a very subtle marrow edema in the distal femoral shaft. Reportedly there is no history of t rauma. No drainable fluid collections in the soft tissues. Small Castelan's cyst. The cruciate ligaments , collateral ligaments and menisci appear intact. CONCLUSION: 1. Subtle edema in the distal femur in patient without trauma. Consider early osteomyelitis. 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 Small to moderate enhancing knee joint effusion. Cruz Levi MD on April 23, 2017 at 16:04 Board Certified Radiologist. This report was verified electronically.
--- NOTE | 2017-04-23 16:15 | RADRPT ---
EXAM DATE/TIME: 04/23/2017 14:53 [facility] COMPARISON: No previous studies available for comparison. INDICATIONS : Osteomyelitis. Right ankle pain and swelling. Denies injury. CONTRAST: 13 cc Omniscan (gadodiamide) IV MEDICAL HISTORY : None. SURGICAL HISTORY : Tonsillectomy. Wrist. ENCOUNTER: Subsequent ACUITY: 2 day PAIN SCORE: 5/10 LOCATION: Right ankle TECHNIQUE: Multiplanar, multisequence MRI examination was performed without contrast and after the intravenous a dministration of gadolinium. FINDINGS: There is extensive subcutaneous edema. There is also some muscular edema posteriorly in the soleus mu sculature. Mild marrow edema present in the medial and lateral malleolus and distal tibial shaft near the plafond. No tendon or ligamentous injury identified. Achilles and plantar fascial insertions abdiel ear intact. Small elbow joint effusion. CONCLUSION: 1. Edema and enhancement in the distal soleus muscle which could indicate a myositis associated with a subcutaneous cellulitis. No drainable fluid collections. Trace marrow edema which could be reactive but cannot exclude an early osteomyelitis. Followup could be performed. Cruz Levi MD on April 23, 2017 at 16:10 Board Certified Radiologist. This report was verified electronically.
[2017-04-23] MEDS: ENOXAPARIN SODIUM 40 MG/0.4 ML SYRINGE SQ SCH (16:22)
[2017-04-23] MEDS: KETOROLAC TROMETHAMINE 30 MG/ML (IVP) VIAL IV PUSH PRN ×2 (16:22→22:42)
[2017-04-23] MEDS: IBUPROFEN 600 MG TAB PO SCH ×2 (17:07→22:44)
[2017-04-23 17:20] VITALS: BP 106/53; PULSE 62; RESP 16; TEMP 97.9; O2SAT 96
[2017-04-23 20:00] VITALS: BP 117/56; PULSE 58; RESP 18; TEMP 98; O2SAT 100
[2017-04-23] MEDS: PIPERACIL-TAZO 4.5 GM PREMIX 100 ML IV SCH (21:08)
[2017-04-23] MEDS: SODIUM CHLORIDE 0.9% FLUSH 10 ML FLUSH IV FLUSH SCH (21:09)
[2017-04-23] MEDS: SODIUM CHLORIDE 0.9% FLUSH 10 ML FLUSH IV FLUSH PRN (22:43)
[2017-04-23] MEDS: VANCOMYCIN INJ 1,250 MG in SODIUM CHLOR 0.9% 250 ML INJ 250 ML IV SCH (22:44)
[2017-04-23] MEDS ORDERED: MELATONIN 5 MG TAB PO PRN (23:30)
[2017-04-24] VITALS: BP 100/55; PULSE 64; RESP 16; TEMP 97.3; O2SAT 99
[2017-04-24] MEDS: PIPERACIL-TAZO 4.5 GM PREMIX 100 ML IV SCH ×3 (01:36→13:28)
[2017-04-24 04:00] VITALS: BP 177/58; PULSE 65; RESP 16; TEMP 97.4; O2SAT 98
[2017-04-24] MEDS: IBUPROFEN 600 MG TAB PO SCH ×4 (04:56→23:04)
[2017-04-24] MEDS: KETOROLAC TROMETHAMINE 30 MG/ML (IVP) VIAL IV PUSH PRN ×2 (04:57→19:14)
[2017-04-24] MEDS: SODIUM CHLORIDE 0.9% FLUSH 10 ML FLUSH IV FLUSH PRN (04:58)
[2017-04-24 07:09] LABS: BASOPHIL % 0.2 % (0.0-2.0); EOSINOPHIL # 0.1 TH/MM3 (0-0.4); HEMATOCRIT 34.9 % (39.0-51.0); HEMOGLOBIN 11.6 GM/DL (13.0-17.0); LYMPH % 28.4 % (9.0-44.0); LYMPHOCYTE # 1.5 TH/MM3 (1.0-4.8); MEAN CELL VOLUME 88.6 FL (80.0-100.0); MEAN CORPUSCULAR HEMOGLOBIN 29.5 PG (27.0-34.0); MEAN CORPUSCULAR HGB CONC 33.3 % (32.0-36.0); MEAN PLATELET VOLUME 8.4 FL (7.0-11.0); MONO % 11.1 % (0.0-8.0); MONOCYTE # 0.6 TH/MM3 (0-0.9); NEUT % 59.3 % (16.0-70.0); PLATELET COUNT 129 TH/MM3 (150-450); RED BLOOD COUNT 3.94 MIL/MM3 (4.50-5.90); RED CELL DISTRIBUTION WIDTH 15.1 % (11.6-17.2); WHITE BLOOD COUNT 5.1 TH/MM3 (4.0-11.0)
[2017-04-24] MEDS: SODIUM CHLORIDE 0.9% FLUSH 10 ML FLUSH IV FLUSH SCH ×2 (07:25→21:00)
[2017-04-24 07:32] LABS: CALCIUM 8.1 MG/DL (8.5-10.1); CREATININE 0.54 MG/DL (0.60-1.30)
[2017-04-24 08:00] VITALS: BP 96/52; PULSE 48; RESP 18; TEMP 97.4; O2SAT 97
[2017-04-24] MEDS: SODIUM CHLOR 0.9% 1000 ML INJ 1,000 ML IV SCH ×3 (08:07→23:05)
[2017-04-24] MEDS: VANCOMYCIN INJ 1,250 MG in SODIUM CHLOR 0.9% 250 ML INJ 250 ML IV SCH ×2 (11:04→23:05)
[2017-04-24 12:27] VITALS: BP 104/59; PULSE 55; RESP 17; TEMP 98.3; O2SAT 98
[2017-04-24] MEDS: ENOXAPARIN SODIUM 40 MG/0.4 ML SYRINGE SQ SCH (13:28)
--- NOTE | 2017-04-24 14:22 | HHI.FPPN ---
Subjective Remarks Attending medicine note: History reviewed, 3-4 day history of increasing pain in the right lower extremity associated with redness and reduced range of motion of the knee and to a lesser degree ankle. Admitted for cellulitis and evaluation of possible septic joint versus osteomyelitis. Reviewed drug history , dates back 15 years plus, drug of choice is heroin. Patient states that he believes this is a "wakeup call "to go to a [facility], began working, began a meaningful recovery process. No shortness of breath, no chest pain, general health is otherwise good. Please refer to resident's initial history and physical for complete discussion of past medical history, review of systems, family and social history. Objective Vitals Vital Signs Date Time Temp Pulse Resp B/P (MAP) Pulse Ox O2 Delivery O2 Flow Rate FiO2 04/24/17 12:27 98.3 55 17 104/59 (74) 98 04/24/17 09:22 Room Air 04/24/17 08:00 97.4 48 18 96/52 (67) 97 04/24/17 04:00 Room Air 04/24/17 04:00 97.4 65 16 177/58 (97) 98 04/24/17 00:00 Room Air 04/24/17 00:00 97.3 64 16 100/55 (70) 99 04/23/17 20:00 98.0 58 18 117/56 (76) 100 04/23/17 20:00 Room Air 04/23/17 17:20 97.9 62 16 106/53 (70) 96 04/23/17 16:55 Room Air 04/23/17 16:03 97.5 52 17 113/56 (75) 100 I/O 04/23/17 04/23/17 04/23/17 04/24/17 04/24/17 04/24/17 07:00 15:00 23:00 07:00 15:00 23:00 Intake Total 50 ml 100 ml 1932 ml 450 ml Balance 50 ml 100 ml 1932 ml 450 ml Intake Oral 240 ml IV Total 50 ml 100 ml 1692 ml 450 ml # Voids 3 # Bowel Movements 1 Result Diagram: 04/24/17 0610 04/24/17 0610 Objective Remarks Vital signs noted. Afebrile. Gen. appearance: Youthful-appearing gentleman, resting supine, no acute complaints, pleasant in conversation. HEENT: Nonlocalizing. Lungs: Clear to auscultation. Cardiac: S1-S2, no S3 or significant murmurs appreciated. Abdomen: Soft and benign, no organomegaly, no tenderness or masses. Extremities: Examining the lower extremities, there appears by history to be a defervesce sing of the redness around the knee and distally. Range of motion of the right knee is compromised by discomfort on flexion. There is pain on palpation of the knee joint itself on the right. Lesser on the ankle. No evidence of any injury point/, site. A/P Assessment and Plan Attending clinical assessment: Right lower extremity cellulitis, possible osteomyelitis. Have discussed with infectious disease who will review MRIs with the radiologist. May need a tagged white blood cell scan for further studies. This was explained to the patient. He was encouraged with his thoughts about her recovery process and his eventual discharge plans. Follow clinically. Patient seen and examined. Case reviewed and discussed with resident team. Agree with plan of care is discussed with me and documented in the resident note. Problem List: (1) Bursitis of right knee ICD Codes: M70.51 - Other bursitis of knee, right knee Status: Acute Plan: Likely related to emerging cellulitis versus septic arthritis versus mechanical tear of knee - See plan for cellulitis below - Follow-up MRI of knee (2) Cellulitis of right leg ICD Codes: L03.115 - Cellulitis of right lower limb Status: Acute Plan: Likely cellulitis, related to IV drug use - Keep legs elevated, no topical antibiotics - We expect 48 hours for improvement on IV antibiotics - Need to monitor for improvement - Vancomycin with consult - Zosyn 4.5 every 6 hours, monitor creatinine - Controlled NSAIDs - f/u blood culture - ESR high at 37 - Possible osteomyelitis as seen on MRI - Consult ID for osteo-myelitis in IV drug user - Follow up echocardiogram Ultrasound: Negative (3) IV drug abuse ICD Codes: F19.10 - Other psychoactive substance abuse, uncomplicated Status: Acute Plan: UDS positive for opiates and amphetamines Continue to monitor for signs of withdrawal (4) fen/ppx Status: Acute Plan: Fluids: Normal saline at maintenance Electrolytes: BMP normal Nutrition: Regular diet DVT prophylaxis: Lovenox 40 mg daily Elijah Leon MD Apr 24, 2017 14:22
[2017-04-24 16:26] VITALS: BP 112/65; PULSE 50; RESP 17; TEMP 98.1; O2SAT 97
--- NOTE | 2017-04-24 18:06 | PD.ID.CON ---
History of Present Illness Service ID Consult Requested By Reason for Consult Evaluation and Mment of possible right knee osteomyelitis, myositis. Primary Care Physician No Primary Care Physician Diagnoses: History of Present Illness is a 37 y/o CM with PMHx of IVDU with heroin used recently. Patient presents to the emergency department due to worsening knee pain and swelling for 3 days prior to admission. Patient noticed while he was biking approximately 3 days back that he had knee swelling as well as pain in the calf that was increasing. He went to the emergency department on the day prior to admission for knee pain and was prescribed NSAIDs and discharge. On the morning of admission he noticed that his whole leg was red, throbbing and swollen at the calf level with some swelling around the knee has been ankle as well. Patient reports that his entire body sore feels like he has the flu. He denies any fever or chills or night sweats. Patient reports difficulty ambulating with his right ankle. He denies any recent scrapes puncture wounds or any trauma to his right lower extremity anywhere else. She does endorse using IV drugs as recently as 2 days prior to admission. Patient reports that he was recently incarcerated and has been tested negative for HIV and hepatitis. Patient denies any other systemic symptoms particularly cardiorespiratory, back pain, neck pain. He denies any bowel bladder incontinence or paresthesias. Patient has never been diagnosed with any infectious disease processes in the past particularly endocarditis or epidural abscess. Infectious disease is consulted for evaluation and management of cellulitis, possible right knee osteomyelitis, myositis. Review of Systems ROS Limitations: Poor Historian Constitutional: DENIES: Diaphoretic episodes, Fatigue, Fever, Weight gain, Weight loss, Chills, Dizziness, Change in appetite, Night Sweats Endocrine: DENIES: Heat/cold intolerance, Polydipsia, Polyuria, Polyphagia Eyes: DENIES: Blurred vision, Diplopia, Eye inflammation, Eye pain, Vision loss , Photosensitivity, Double Vision Ears, nose, mouth, throat: DENIES: Tinnitus, Hearing loss, Vertigo, Nasal discharge, Oral lesions, Throat pain, Hoarseness, Ear Pain, Running Nose, Epistaxis, Sinus Pain, Toothache, Odynophagia Respiratory: DENIES: Apneas, Cough, Snoring, Wheezing, Hemoptysis, Sputum production, Shortness of breath Cardiovascular: DENIES: Chest pain, Palpitations, Syncope, Dyspnea on Exertion , PND, Lower Extremity Edema, Orthopnea, Claudication Gastrointestinal: DENIES: Abdominal pain, Black stools, Bloody stools, Constipation, Diarrhea, Nausea, Vomiting, Difficulty Swallowing, Anorexia Genitourinary: DENIES: Sexual dysfunction, Urinary frequency, Urinary incontinence, Urgency, Hematuria, Dysuria, Nocturia, Penile Discharge, Testicular Pain, Testicular Swelling Past Family Social History Allergies: Coded Allergies: No Known Allergies (Verified Adverse Reaction, Unknown, 04/23/17) Past Medical History IVDU Past Surgical History None per pt Reported Medications Reported Meds & Active Scripts Active No Active Prescriptions or Reported Medications Active Ordered Medications Current Medications Medications (Trade) Dose Ordered Sig/Bandar Route Start Time Stop Time Status Last Admin (NS Flush) 2 ml BID IV FLUSH 04/23/17 21:00 04/24/17 07:25 (NS Flush) 2 ml UNSCH PRN IV FLUSH 04/23/17 13:30 04/24/17 04:58 Sodium Chloride 1,000 ml @ 100 mls/hr Q10H IV 04/23/17 13:24 04/24/17 15:02 Pharmacy Profile Note 0 ml @ 0 mls/hr UNSCH OTHER 04/23/17 13:30 (Lovenox Inj) 40 mg Q24H SQ 04/23/17 14:00 04/24/17 13:28 (Motrin) 600 mg Q6HR PO 04/23/17 13:30 04/24/17 17:28 Piperacillin Sod/ Tazobactam Sod 100 ml @ 200 mls/hr Q6H IV 04/23/17 20:00 04/24/17 13:28 (Tylenol) 650 mg Q6H PRN PO 04/23/17 14:00 (Toradol Inj) 15 mg Q6H PRN IV PUSH 04/23/17 13:45 04/28/17 13:44 (Toradol Inj) 30 mg Q6H PRN IV PUSH 04/23/17 13:45 04/28/17 13:44 04/24/17 04:57 (Narcan Inj) 0.4 mg UNSCH PRN IV PUSH 04/23/17 13:45 Vancomycin HCl 1250 mg/Sodium Chloride 262.5 ml @ 262.5 mls/ hr Q12H IV 04/23/17 23:00 04/24/17 11:04 Miscellaneous Information SPECIFIC LAB TO BE ... ONCE ONCE .XX 04/24/17 22:45 04/24/17 22:46 (Melatonin) 5 mg HS PRN PO 04/23/17 23:30 04/24/17 00:09 Family History reviewed and NC to current ID problems. Social History Incarcarated for 2 months, get out last week, lives in a house with girlfriends family, smokes 1ppd x 15 years, no alcohol, + heroin use; does not share needles , gets needles from pharmacy, states he will not go into withdrawl here, has been through rehab programs before and tried Suboxone, he is not willing to try rehabilitation again at this time. Physical Exam Vital Signs Vital Signs Date Time Temp Pulse Resp B/P (MAP) Pulse Ox O2 Delivery O2 Flow Rate FiO2 04/24/17 16:26 98.1 50 17 112/65 (81) 97 04/24/17 12:27 98.3 55 17 104/59 (74) 98 04/24/17 09:22 Room Air 04/24/17 08:00 97.4 48 18 96/52 (67) 97 04/24/17 04:00 Room Air 04/24/17 04:00 97.4 65 16 177/58 (97) 98 04/24/17 00:00 Room Air 04/24/17 00:00 97.3 64 16 100/55 (70) 99 04/23/17 20:00 98.0 58 18 117/56 (76) 100 04/23/17 20:00 Room Air Physical Exam GENERAL: This is a well-nourished, well-developed patient, in no apparent distress. SKIN: Track lyman noted. HEAD: Atraumatic. Normocephalic. No temporal or scalp tenderness. EYES: Pupils equal round and reactive. Extraocular motions intact. No scleral icterus. No injection or drainage. ENT: Nose without bleeding, purulent drainage or septal hematoma. Throat without erythema, tonsillar hypertrophy or exudate. Uvula midline. Airway patent. NECK: Trachea midline. Supple, nontender, no meningeal signs. CARDIOVASCULAR: HS audible. RESPIRATORY: Clear to auscultation. Breath sounds equal bilaterally. No wheezes , rales, or rhonchi. GASTROINTESTINAL: Abdomen soft, non-tender, nondistended. MUSCULOSKELETAL: Right LE with erythema noted. Minimal knee and ankle swelling ( patient reports improvement). Tenderness in the calf area and pain on flexion of knee joint. Pain does not appear to be out of proportion to findings. Clinically does not appear to be c/w Necrotizing fascitis. NEUROLOGICAL: Awake and alert. Gross exam non focal. Psych cooperative IV line sites with no e.o infection. Laboratory Laboratory Tests Test 04/24/17 06:10 White Blood Count 5.1 Red Blood Count 3.94 Hemoglobin 11.6 Hematocrit 34.9 Mean Corpuscular Volume 88.6 Mean Corpuscular Hemoglobin 29.5 Mean Corpuscular Hemoglobin Concent 33.3 Red Cell Distribution Width 15.1 Platelet Count 129 Mean Platelet Volume 8.4 Neutrophils (%) (Auto) 59.3 Lymphocytes (%) (Auto) 28.4 Monocytes (%) (Auto) 11.1 Eosinophils (%) (Auto) 1.0 Basophils (%) (Auto) 0.2 Neutrophils # (Auto) 3.0 Lymphocytes # (Auto) 1.5 Monocytes # (Auto) 0.6 Eosinophils # (Auto) 0.1 Basophils # (Auto) 0.0 CBC Comment DIFF FINAL Differential Comment Blood Urea Nitrogen 7 Creatinine 0.54 Random Glucose 111 Calcium Level 8.1 Sodium Level 143 Potassium Level 3.8 Chloride Level 109 Carbon Dioxide Level 28.0 Anion Gap 6 Estimat Glomerular Filtration Rate 171 Date/Time Source Procedure Growth Status 04/23/17 11:05 Blood Peripheral Aerobic Blood Culture - Preliminary NO GROWTH IN 1 DAY Resulted 04/23/17 11:05 Blood Peripheral Anaerobic Blood Culture - Preliminary NO GROWTH IN 1 DAY Resulted Result Diagram: 04/24/17 0610 04/24/17 0610 Imaging Last Impressions Lower Extremity Ultrasound 04/23/17 1030 Signed Impressions: Service Date/Time: Sunday, April 23, 2017 10:58 - CONCLUSION: 1. Negative for deep venous thrombosis. Cruz Levi MD Knee MRI 04/23/17 0000 Signed Impressions: Service Date/Time: Sunday, April 23, 2017 14:53 - CONCLUSION: 1. Subtle edema in the distal femur in patient without trauma. Consider early osteomyelitis. There is also a suspected extensive cellulitis and possibly fasciitis with a muscular edema especially posteriorly. Small to moderate enhancing knee joint effusion. Cruz Levi MD Ankle MRI 04/23/17 0000 Signed Impressions: Service Date/Time: Sunday, April 23, 2017 14:53 - CONCLUSION: 1. Edema and enhancement in the distal soleus muscle which could indicate a myositis associated with a subcutaneous cellulitis. No drainable fluid collections. Trace marrow edema which could be reactive but cannot exclude an early osteomyelitis. Followup could be performed. Cruz Levi MD Assessment and Plan Assessment and Plan Right knee cellulitis. Right knee joint effusion ? infected. Clinically not much warmth or erythema over joint but pain/tenderness appreciated. Right calf myositis possible. No clinical evidence of necrotizing fascitis. 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 Recs Continue Zosyn IV for now. Continue Vanco IV for now (target 10-15 for cellulitis for now) Reviewed imaging findings. Clinically seems to have improved per primary team d.w . At this time the concern is the knee effusion and muscle findings on MRI. Will d.w radiology in am. d/w : ok for IR guided arthrocentesis. Orders entered. d/w RN Follow cultures Follow clinically Nicole Hernandez MD Apr 24, 2017 18:06
--- NOTE | 2017-04-24 18:26 | ECHRPT ---
Indication: CARDIOMYOPATHY CONCLUSIONS Normal left ventricular size. Wall thickness is normal. The left ventricular systolic function is normal with an estimated ejection fraction in the range of 60%. Possible ruptured chordae vs anterior MV leaflet mobile vegetation. Trace tricuspid regurgitation. BP: 177 / 58 HR: 65 Rhythm: MEASUREMENTS (Male / Female) Normal Values Technical Quality:Good 2D ECHO LV Diastolic Diameter PLAX 4.8 cm 4.2 - 5.9 / 3.9 - 5.3 cm LV Systolic Diameter PLAX 3.7 cm IVS Diastolic Thickness 0.9 cm 0.6 - 1.0 / 0.6 - 0.9 cm LVPW Diastolic Thickness 0.8 cm 0.6 - 1.0 / 0.6 - 0.9 cm LV Relative Wall Thickness 0.4 RV Internal Dim ED PLAX 2.0 cm LA Systolic Diameter LX 3.6 cm 3.0 - 4.0 / 2.7 - 3.8 cm DOPPLER Mitral E Point Velocity 110.0 cm/s Mitral A Point Velocity 38.3 cm/s Mitral E to A Ratio 2.9 TR Peak Velocity 198.0 cm/s TR Peak Gradient 15.7 mmHg FINDINGS LEFT VENTRICLE Normal left ventricular size. Wall thickness is normal. The left ventricular systolic function is normal with an estimated ejection fraction of 60%. RIGHT VENTRICLE Normal right ventricular size and systolic function. LEFT ATRIUM The left atrial size is normal. RIGHT ATRIUM The right atrial size is normal. ATRIAL SEPTUM Normal atrial septal thickness without atrial level shunting by limited color doppler interrogation. AORTA The aortic root and proximal ascending aorta are normal in size on limited imaging. MITRAL VALVE Structurally normal mitral valve. No mitral valve stenosis or regurgitation. Possible ruptured chord ae or mobile anterior MV leaflet vegetation. AORTIC VALVE Trileaflet aortic valve. No aortic valve stenosis or regurgitation. TRICUSPID VALVE Structurally normal tricuspid valve. No tricuspid valve stenosis, trace regurgitation. PULMONARY VALVE The pulmonary valve is not well visualized. VESSELS The inferior vena cava is normal in size. PERICARDIUM No pericardial effusion. Cassidy Granados MD, FACC (Electronically Signed) Final Date:24 April 2017 18:25
[2017-04-24 20:20] VITALS: BP 134/66; PULSE 45; RESP 16; TEMP 97.9; O2SAT 98
[2017-04-24] MEDS ORDERED: PHARMACY ORDERED LAB ONE (22:45)
[2017-04-25 00:37] VITALS: BP 113/56; PULSE 45; RESP 16; TEMP 97.7; O2SAT 97
[2017-04-25 03:52] VITALS: BP 111/56; PULSE 59; RESP 16; TEMP 97.4; O2SAT 96
[2017-04-25] MEDS: IBUPROFEN 600 MG TAB PO SCH ×2 (05:41→11:33)
[2017-04-25 07:08] LABS: BASOPHIL % 0.2 % (0.0-2.0); EOSINOPHIL # 0.1 TH/MM3 (0-0.4); EOSINOPHIL % 1.2 % (0.0-4.0); HEMATOCRIT 37.1 % (39.0-51.0); HEMOGLOBIN 12.6 GM/DL (13.0-17.0); LYMPH % 28.6 % (9.0-44.0); LYMPHOCYTE # 1.8 TH/MM3 (1.0-4.8); MEAN CELL VOLUME 89.1 FL (80.0-100.0); MEAN CORPUSCULAR HEMOGLOBIN 30.2 PG (27.0-34.0); MEAN CORPUSCULAR HGB CONC 33.8 % (32.0-36.0); MEAN PLATELET VOLUME 8.6 FL (7.0-11.0); MONO % 7.7 % (0.0-8.0); MONOCYTE # 0.5 TH/MM3 (0-0.9); NEUT % 62.3 % (16.0-70.0); PLATELET COUNT 165 TH/MM3 (150-450); RED BLOOD COUNT 4.16 MIL/MM3 (4.50-5.90); RED CELL DISTRIBUTION WIDTH 15.2 % (11.6-17.2); WHITE BLOOD COUNT 6.4 TH/MM3 (4.0-11.0)
[2017-04-25 07:31] LABS: BICARBONATE 27.1 MEQ/L (21.0-32.0); CREATININE 0.56 MG/DL (0.60-1.30)
[2017-04-25 07:34] LABS: WESTERGREN SEDIMENTATION RATE 23 mm/hr (0-15)
--- NOTE | 2017-04-25 07:39 | PD.CONS ---
HPI Service Orthopedic Surgeons Consult Requested By Dr. Hernandez, infectious disease Reason for Consult Possible infection right leg Primary Care Physician No Primary Care Physician Admission Diagnosis Cellulitis right leg Diagnoses: Chief Complaint: Pain in the right leg History of Present Illness This patient is a 37-year-old white male admitted with swelling redness and pain in the region of his right leg. The patient has been started on antibiotics for cellulitis. I received a call late yesterday from the infectious disease attending. The question was whether there was evidence of an infection in the knee joint. We discussed the patient's case and I recommended considering aspiration right knee because an MRI scan was positive for an effusion. I'm seeing the patient the next morning for full evaluation. The patient indicates that his pain is decreasing. He notes he has full range of motion of the knee. He notes the pain and swelling is improving Past Family Social History Allergies: Coded Allergies: No Known Allergies (Verified Adverse Reaction, Unknown, 04/23/17) Active Ordered Medications Current Medications Medications (Trade) Dose Ordered Sig/Bandar Route Start Time Stop Time Status Last Admin (NS Flush) 2 ml BID IV FLUSH 04/23/17 21:00 04/24/17 21:00 (NS Flush) 2 ml UNSCH PRN IV FLUSH 04/23/17 13:30 04/24/17 04:58 Sodium Chloride 1,000 ml @ 100 mls/hr Q10H IV 04/23/17 13:24 04/24/17 23:05 Pharmacy Profile Note 0 ml @ 0 mls/hr UNSCH OTHER 04/23/17 13:30 (Lovenox Inj) 40 mg Q24H SQ 04/23/17 14:00 04/24/17 13:28 (Motrin) 600 mg Q6HR PO 04/23/17 13:30 04/25/17 05:41 (Tylenol) 650 mg Q6H PRN PO 04/23/17 14:00 (Toradol Inj) 15 mg Q6H PRN IV PUSH 04/23/17 13:45 04/28/17 13:44 (Toradol Inj) 30 mg Q6H PRN IV PUSH 04/23/17 13:45 04/28/17 13:44 04/24/17 19:14 (Narcan Inj) 0.4 mg UNSCH PRN IV PUSH 04/23/17 13:45 Vancomycin HCl 1250 mg/Sodium Chloride 262.5 ml @ 262.5 mls/ hr Q12H IV 04/23/17 23:00 04/24/17 23:05 (Melatonin) 5 mg HS PRN PO 04/23/17 23:30 04/24/17 00:09 Reported Meds & Active Scripts Active No Active Prescriptions or Reported Medications Physical Exam Vital Signs Vital Signs Date Time Temp Pulse Resp B/P (MAP) Pulse Ox O2 Delivery O2 Flow Rate FiO2 04/25/17 06:35 18 04/25/17 04:00 Room Air 04/25/17 03:52 97.4 59 16 111/56 (74) 96 04/25/17 00:37 97.7 45 16 113/56 (75) 97 04/25/17 00:00 Room Air 04/24/17 23:00 Room Air 04/24/17 20:20 97.9 45 16 134/66 (88) 98 04/24/17 16:26 98.1 50 17 112/65 (81) 97 04/24/17 12:27 98.3 55 17 104/59 (74) 98 04/24/17 09:22 Room Air 04/24/17 08:00 97.4 48 18 96/52 (67) 97 Physical Exam The patient is seen at bedside. He is able to lift his leg off the bed without difficulty. There is a small rash in the lower region of the medial aspect of the leg above the ankle. Mild swelling is seen crossing the knee. No significant warmth or redness. He has full range of motion of the right knee. There is no appreciable effusion. There is no evidence of prepatellar swelling. Dorsalis pedis 2+ and sensation is normal. Laboratory Laboratory Tests Test 04/24/17 22:28 04/25/17 06:04 Vancomycin Level Trough 6.5 White Blood Count 6.4 Red Blood Count 4.16 Hemoglobin 12.6 Hematocrit 37.1 Mean Corpuscular Volume 89.1 Mean Corpuscular Hemoglobin 30.2 Mean Corpuscular Hemoglobin Concent 33.8 Red Cell Distribution Width 15.2 Platelet Count 165 Mean Platelet Volume 8.6 Neutrophils (%) (Auto) 62.3 Lymphocytes (%) (Auto) 28.6 Monocytes (%) (Auto) 7.7 Eosinophils (%) (Auto) 1.2 Basophils (%) (Auto) 0.2 Neutrophils # (Auto) 4.0 Lymphocytes # (Auto) 1.8 Monocytes # (Auto) 0.5 Eosinophils # (Auto) 0.1 Basophils # (Auto) 0.0 CBC Comment DIFF FINAL Differential Comment Erythrocyte Sedimentation Rate 23 Blood Urea Nitrogen 8 Creatinine 0.56 Random Glucose 101 Calcium Level 8.0 Sodium Level 142 Potassium Level 3.7 Chloride Level 110 Carbon Dioxide Level 27.1 Anion Gap 5 Estimat Glomerular Filtration Rate 164 Date/Time Source Procedure Growth Status 04/23/17 11:05 Blood Peripheral Aerobic Blood Culture - Preliminary NO GROWTH IN 1 DAY Resulted 04/23/17 11:05 Blood Peripheral Anaerobic Blood Culture - Preliminary NO GROWTH IN 1 DAY Resulted Result Diagram: 04/25/17 0604 04/25/17 0604 Imaging Review the MRI scan and review the radiologist's interpretation shows evidence of cellulitis with mild fasciitis. There is a small effusion of the knee. No obvious internal derangement of the knee Assessment & Plan Assessment and Plan Cellulitis right leg. Effusion right knee, small. PLAN: This patient has no clear evidence of an intra-articular condition that needs aggressive treatment or surgical management. It was recommended the patient have an aspiration by radiology, but based on my clinical examination and review of the data, I do not feel that is necessary at this time. IV antibiotics per infectious disease recommendation for treatment of cellulitis. At this time, there is no evidence of abscess or need for any surgical treatment of the patient's condition at this time. I will sign off at this time and please reconsult if found to be necessary Ge Lobo MD Apr 25, 2017 07:38
[2017-04-25 08:00] VITALS: BP 137/75; PULSE 45; RESP 16; TEMP 97.6; O2SAT 99
[2017-04-25] MEDS: SODIUM CHLORIDE 0.9% FLUSH 10 ML FLUSH IV FLUSH SCH (08:41)
--- NOTE | 2017-04-25 09:16 | RADRPT ---
EXAM DATE/TIME: 04/25/2017 07:59 [facility] COMPARISON: MRI KNEE RIGHT W & W/O CONTRAST, April 23, 2017, 14:53. INDICATIONS : Right knee fluid collection. MEDICAL HISTORY : Substance use. SURGICAL HISTORY : Tonsillectomy. Wrist surgery. Bilateral ankle fracture surgery. ENCOUNTER: Initial ACUITY: 1 day PAIN SCORE: 0/10 LOCATION: Right knee. FLUID: Total volume of of fluid was removed. Fluid was Post procedure scanning reveals no hematoma or other complication. FINDINGS: MASSES: None. FLUID COLLECTIONS: None. OTHER: Negative. CONCLUSION: No discrete fluid collections identified about the right knee. Yovany Grimm MD on April 25, 2017 at 9:10 Board Certified Radiologist. This report was verified electronically.
--- NOTE | 2017-04-25 11:20 | HHI.FPPN ---
Subjective Remarks Patient seen and examined this morning. No acute events over night. Stated right leg pain has improved currently feels mild soreness rates 3/10. Patient is eating well. Patient with good urine output and bowel movements. Denies chest pain chest, fever, chills, or shortness of breath. Objective Vitals Vital Signs Date Time Temp Pulse Resp B/P (MAP) Pulse Ox O2 Delivery O2 Flow Rate FiO2 04/25/17 08:00 97.6 45 16 137/75 (95) 99 04/25/17 08:00 Room Air 04/25/17 06:35 18 04/25/17 04:00 Room Air 04/25/17 03:52 97.4 59 16 111/56 (74) 96 04/25/17 00:37 97.7 45 16 113/56 (75) 97 04/25/17 00:00 Room Air 04/24/17 23:00 Room Air 04/24/17 20:20 97.9 45 16 134/66 (88) 98 04/24/17 16:26 98.1 50 17 112/65 (81) 97 04/24/17 12:27 98.3 55 17 104/59 (74) 98 I/O 04/24/17 04/24/17 04/24/17 04/25/17 04/25/17 04/25/17 06:59 14:59 22:59 06:59 14:59 22:59 Intake Total 1932 ml 450 ml 820 ml 2531 ml Balance 1932 ml 450 ml 820 ml 2531 ml Intake Oral 240 ml 720 ml 480 ml IV Total 1692 ml 450 ml 100 ml 2051 ml # Voids 3 3 4 # Bowel Movements 1 0 0 Result Diagram: 04/25/17 0604 04/25/17 0604 Imaging Last Impressions Lower Extremity Ultrasound 04/25/17 0000 Signed Impressions: Service Date/Time: April 07:59 - CONCLUSION: No discrete fluid collections identified about the right knee. Yovany Grimm MD Knee MRI 04/23/17 0000 Signed Impressions: Service Date/Time: Sunday, April 23, 2017 14:53 - CONCLUSION: 1. Subtle edema in the distal femur in patient without trauma. Consider early osteomyelitis. There is also a suspected extensive cellulitis and possibly fasciitis with a muscular edema especially posteriorly. Small to moderate enhancing knee joint effusion. Cruz Levi MD Ankle MRI 04/23/17 0000 Signed Impressions: Service Date/Time: Sunday, April 23, 2017 14:53 - CONCLUSION: 1. Edema and enhancement in the distal soleus muscle which could indicate a myositis associated with a subcutaneous cellulitis. No drainable fluid collections. Trace marrow edema which could be reactive but cannot exclude an early osteomyelitis. Followup could be performed. Cruz Levi MD Objective Remarks Gen. appearance: Resting in bed, no acute complaints. HEENT: Nonlocalizing. Lungs: Clear to auscultation. Cardiac: Normal S1-S2, no m/g/r. Abdomen: Soft and benign, no organomegaly, non-distended no tenderness or masses. Extremities: There is mild pain on palpation of the Right knee joint, no edema, effusion or erythema noted on R knee or R ankle. +2 DP pulses BL. No LE edema noted. No evidence of any injury point/site. Mild Right calf tenderness, redness improved from yesterday and edema resolved. A/P Assessment and Plan 37-year-old male, history of IV drug use, presented with progressive right knee , leg, and ankle pain 3 days with progressive erythema and swelling of right calf.Admitted for treatment of cellulitis vs early osteo. Infection appears to be improving on antibiotic treatment. Pt hemodynamically stable, afebrile, WBC WNL. Discharge Planning Anticipate discharge today pending ID antibiotic recommendations. Problem List: (1) Cellulitis of right leg ICD Codes: L03.115 - Cellulitis of right lower limb Status: Acute Plan: Likely cellulitis, related to IV drug use - On admission elevated CRP and ERS - vanc IV Q12h -s/p Zosyn 4.5 every 6 hours - Controlled NSAIDs - blood culture: negative - MRI of knee: Extensive cellulitis, moderate enhancing knee joint effusion, consider early osteomyelitis. -MRI of ankle: Cellulitis, no drainage for collection, cannot exclude early osteomyelitis. -ID consulted for osteo-myelitis in IV drug user, recommendations appreciated for antibiotic treatment as out patient Ultrasound: Negative (2) Bursitis of right knee ICD Codes: M70.51 - Other bursitis of knee, right knee Status: Acute Plan: Right LE cellulitis - See plan for cellulitis below - MRI of knee: Extensive cellulitis, moderate enhancing knee joint effusion, consider early osteomyelitis. (3) IV drug abuse ICD Codes: F19.10 - Other psychoactive substance abuse, uncomplicated Status: Acute Plan: UDS positive for opiates and amphetamines -No signs of withdrawal noticed during hospital stay -Pt advised to stop using IV drugs. Complications and negative effects of IV drug use discussed with patient. (4) fen/ppx Status: Acute Plan: Fluids: Normal saline at maintenance Electrolytes: WNL Nutrition: Regular diet DVT prophylaxis: Lovenox 40 mg daily Problem Qualifiers (1) Bursitis of right knee: Qualified Codes: M70.51 - Other bursitis of knee, right knee Donna Robison MD, R1 Apr 25, 2017 11:20
[2017-04-25] MEDS: VANCOMYCIN INJ 1,250 MG in SODIUM CHLOR 0.9% 250 ML INJ 250 ML IV SCH (11:30)
[2017-04-25 12:00] VITALS: BP 150/71; PULSE 46; RESP 16; TEMP 97.6; O2SAT 100
[2017-04-25] MEDS: ENOXAPARIN SODIUM 40 MG/0.4 ML SYRINGE SQ SCH (14:42)
[2017-04-25] MEDS ORDERED: DOXY100C PO (15:56)
--- NOTE | 2017-04-25 15:57 | HHI.DCPOC ---
Discharge Care Plan Diagnosis: (1) Cellulitis of right leg (2) IV drug abuse Goals to Promote Your Health * To prevent worsening of your condition and complications * To maintain your health at the optimal level Directions to Meet Your Goals Take your medications as prescribed Follow your dietary instruction Follow activity as directed Keep your appointments as scheduled Take your immunizations and boosters as scheduled If your symptoms worsen call your PCP, if no PCP go to Urgent Care Center or Emergency Room Smoking is Dangerous to Your Health. Avoid second hand smoke Call the 24-hour hour crisis hotline for domestic abuse at Donna Robison MD, R1 Apr 25, 2017 15:57
--- NOTE | 2017-04-25 16:04 | HHI.IDPN ---
Subjective Subjective Remarks is a 37 y/o CM with PMHx of IVDU with heroin used recently. Patient presents to the emergency department due to worsening knee pain and swelling for 3 days prior to admission. Patient noticed while he was biking approximately 3 days back that he had knee swelling as well as pain in the calf that was increasing. He went to the emergency department on the day prior to admission for knee pain and was prescribed NSAIDs and discharge. On the morning of admission he noticed that his whole leg was red, throbbing and swollen at the calf level with some swelling around the knee has been ankle as well. Patient reports that his entire body sore feels like he has the flu. He denies any fever or chills or night sweats. Patient reports difficulty ambulating with his right ankle. He denies any recent scrapes puncture wounds or any trauma to his right lower extremity anywhere else. She does endorse using IV drugs as recently as 2 days prior to admission. Patient reports that he was recently incarcerated and has been tested negative for HIV and hepatitis. Patient denies any other systemic symptoms particularly cardiorespiratory, back pain, neck pain. He denies any bowel bladder incontinence or paresthesias. Patient has never been diagnosed with any infectious disease processes in the past particularly endocarditis or epidural abscess. Infectious disease is consulted for evaluation and management of cellulitis, possible right knee osteomyelitis, myositis. Overnight events reviewed. Fevers No rash No diarrhea Evaluated by orthopedic no evidence of effusion does not think osteomyelitis okay to be discharged Antibiotics Zosyn IV Vancomycin IV Lines Line sites with no evidence of infection Past Medical History Past Medical History IVDU Past Surgical History None per pt Allergies: Coded Allergies: No Known Allergies (Verified Adverse Reaction, Unknown, 04/23/17) Objective . Vital Signs Date Time Temp Pulse Resp B/P (MAP) Pulse Ox O2 Delivery O2 Flow Rate FiO2 04/25/17 12:00 97.6 46 16 150/71 (97) 100 04/25/17 08:00 97.6 45 16 137/75 (95) 99 04/25/17 08:00 Room Air 04/25/17 06:35 18 04/25/17 04:00 Room Air 04/25/17 03:52 97.4 59 16 111/56 (74) 96 04/25/17 00:37 97.7 45 16 113/56 (75) 97 04/25/17 00:00 Room Air 04/24/17 23:00 Room Air 04/24/17 20:20 97.9 45 16 134/66 (88) 98 04/24/17 16:26 98.1 50 17 112/65 (81) 97 . Laboratory Tests Test 04/24/17 06:10 04/25/17 06:04 White Blood Count 5.1 TH/MM3 6.4 TH/MM3 Red Blood Count 3.94 MIL/MM3 4.16 MIL/MM3 Hemoglobin 11.6 GM/DL 12.6 GM/DL Hematocrit 34.9 % 37.1 % Mean Corpuscular Volume 88.6 FL 89.1 FL Mean Corpuscular Hemoglobin 29.5 PG 30.2 PG Mean Corpuscular Hemoglobin Concent 33.3 % 33.8 % Red Cell Distribution Width 15.1 % 15.2 % Platelet Count 129 TH/MM3 165 TH/MM3 Mean Platelet Volume 8.4 FL 8.6 FL Neutrophils (%) (Auto) 59.3 % 62.3 % Lymphocytes (%) (Auto) 28.4 % 28.6 % Monocytes (%) (Auto) 11.1 % 7.7 % Eosinophils (%) (Auto) 1.0 % 1.2 % Basophils (%) (Auto) 0.2 % 0.2 % Neutrophils # (Auto) 3.0 TH/MM3 4.0 TH/MM3 Lymphocytes # (Auto) 1.5 TH/MM3 1.8 TH/MM3 Monocytes # (Auto) 0.6 TH/MM3 0.5 TH/MM3 Eosinophils # (Auto) 0.1 TH/MM3 0.1 TH/MM3 Basophils # (Auto) 0.0 TH/MM3 0.0 TH/MM3 CBC Comment DIFF FINAL DIFF FINAL Differential Comment Erythrocyte Sedimentation Rate 23 mm/hr Laboratory Tests Test 04/24/17 06:10 04/25/17 06:04 Blood Urea Nitrogen 7 MG/DL 8 MG/DL Creatinine 0.54 MG/DL 0.56 MG/DL Random Glucose 111 MG/DL 101 MG/DL Calcium Level 8.1 MG/DL 8.0 MG/DL Sodium Level 143 MEQ/L 142 MEQ/L Potassium Level 3.8 MEQ/L 3.7 MEQ/L Chloride Level 109 MEQ/L 110 MEQ/L Carbon Dioxide Level 28.0 MEQ/L 27.1 MEQ/L Anion Gap 6 MEQ/L 5 MEQ/L Estimat Glomerular Filtration Rate 171 ML/MIN 164 ML/MIN Total Creatine Kinase 183 U/L Microbiology Date/Time Source Procedure Growth Status 04/23/17 11:05 Blood Peripheral Aerobic Blood Culture - Preliminary NO GROWTH IN 2 DAYS Resulted 04/23/17 11:05 Blood Peripheral Anaerobic Blood Culture - Preliminary NO GROWTH IN 2 DAYS Resulted 04/23/17 10:53 Blood Peripheral Aerobic Blood Culture - Preliminary NO GROWTH IN 2 DAYS Resulted 04/23/17 10:53 Blood Peripheral Anaerobic Blood Culture - Preliminary NO GROWTH IN 2 DAYS Resulted Imaging Last Impressions Lower Extremity Ultrasound 04/25/17 0000 Signed Impressions: Service Date/Time: April 07:59 - CONCLUSION: No discrete fluid collections identified about the right knee. Yovany Grimm MD Knee MRI 04/23/17 0000 Signed Impressions: Service Date/Time: Sunday, April 23, 2017 14:53 - CONCLUSION: 1. Subtle edema in the distal femur in patient without trauma. Consider early osteomyelitis. There is also a suspected extensive cellulitis and possibly fasciitis with a muscular edema especially posteriorly. Small to moderate enhancing knee joint effusion. Cruz Levi MD Ankle MRI 04/23/17 0000 Signed Impressions: Service Date/Time: Sunday, April 23, 2017 14:53 - CONCLUSION: 1. Edema and enhancement in the distal soleus muscle which could indicate a myositis associated with a subcutaneous cellulitis. No drainable fluid collections. Trace marrow edema which could be reactive but cannot exclude an early osteomyelitis. Followup could be performed. Cruz Levi MD Physical Exam GENERAL: This is a well-nourished, well-developed patient, in no apparent distress. SKIN: Track lyman noted. HEAD: Atraumatic. Normocephalic. No temporal or scalp tenderness. EYES: Pupils equal round and reactive. Extraocular motions intact. No scleral icterus. No injection or drainage. ENT: Nose without bleeding, purulent drainage or septal hematoma. Throat without erythema, tonsillar hypertrophy or exudate. Uvula midline. Airway patent. NECK: Trachea midline. Supple, nontender, no meningeal signs. CARDIOVASCULAR: HS audible. RESPIRATORY: Clear to auscultation. Breath sounds equal bilaterally. No wheezes , rales, or rhonchi. GASTROINTESTINAL: Abdomen soft, non-tender, nondistended. MUSCULOSKELETAL: Right LE with erythema noted. Minimal knee and ankle swelling ( patient reports improvement). Tenderness in the calf area and pain on flexion of knee joint. Pain does not appear to be out of proportion to findings. Clinically does not appear to be c/w Necrotizing fascitis. NEUROLOGICAL: Awake and alert. Gross exam non focal. Psych cooperative IV line sites with no e.o infection. Assessment & Plan Remarks Right knee cellulitis. Right knee joint effusion ? infected. Clinically not much warmth or erythema over joint but pain/tenderness appreciated. Right calf myositis possible. No clinical evidence of necrotizing fascitis. IVDU with heroin 2 days [employer] possible joint seeding. Recs DC Zosyn IV for now. DC Vanco IV for now (target 10-15 for cellulitis for now) Discharge home on oral doxy for 14 days. Counseled pt to come back to hospital if signs of recurrence. Appreciate ortho input. d/w RN d/w Dr.Calzado mcclure to discharge from ID standpoint. Will sign off please call back if any change in clinical condition or questions. iNcole Hernandez MD Apr 25, 2017 16:04
[2017-04-25] MEDS ORDERED: IBUP-232 PO (16:10)
[2017-04-25] MEDS ORDERED: VANCOMYCIN 1 GM/200 ML PREMIX IV SCH (18:00)
[2017-04-25] MEDS ORDERED: DOXYCYCLINE HYCLATE 100 MG TAB PO SCH (21:00)
--- NOTE | 2017-04-26 14:49 | HHI.FPPN ---
Addendum to progress note ADDENDUM Reason for addendum: Additonal documentation Additional information Based on results of Echo (Possible ruptured chordae vs anterior MV leaflet mobile vegetation) that resulted after discharge, I have tried to contact patient at phone number provided ([phone]) and via phone number of traffic personnel supervisor listed (Ge Eugene at [phone]) but have not been successful. I have called the numbers multiple time with no answer or option to leave voicemail today and yesterday. I also contacted the [facility] house the pt mentioned he lived in ([facility]) at [phone] and they do not have any records of this patient. I have this discussed this with my attending, Dr. Tidwell. Will discuss case with ID for further input. -I have spoked to ED charge nurse Jessa to inform her that if pt presents to ED please have patient admitted for evaluation of endocarditis. - I have also [phone] and was informed the he does not work there. Donna Robison MD, R1 Apr 26, 2017 14:49
[2017-04-26] MEDS ORDERED: PHARMACY ORDERED LAB ONE (17:45)
--- NOTE | 2017-04-27 13:03 | HHI.FPPN ---
Addendum to progress note ADDENDUM Reason for addendum: Additonal documentation Additional information Additional efforts made to contact patient include contacting the [facility] police department at [phone]. I have left 2 voice mails awaiting a call back. Donna Robison MD, R1 Apr 27, 2017 13:03
== END 2017-04-25 16:50 | disposition home or self-care (01) | DRG 603 ==
LOC: NEPD 09:41 → NEDA 13:03 → N04A 15:55
PROVIDERS: ADMIT Family Medicine; ATTEND Family Medicine
DX: L03.115 Cellulitis of right lower limb (principal); R51 Headache; M70.51 Other bursitis of knee, right knee; M25.461 Effusion, right knee; M60.861 Other myositis, right lower leg; R79.82 Elevated C-reactive protein (CRP); R93.1 Abnormal findings on diagnostic imaging of heart and coronary circulation; F11.10 Opioid abuse, uncomplicated; F15.10 Other stimulant abuse, uncomplicated; F17.200 Nicotine dependence, unspecified, uncomplicated
CPT/HCPCS: 73723; 76882; 80048; 80053; 80202; 80307; 81001; 82550; 82552; 83605; 85025; 85610; 85652; 85730; 86140; 87015; 87040; 93306; 93970; 96374; A9579; J1200; J1650; J1885; J2543; J3370; J7030; J7050

== ENCOUNTER 2017-07-09 16:03 | Emergency (ER) | payer SELFPAY ==
[~2017-07-09 16:03] MED LIST changes: -DICL75TA PO; +DOXY100C PO; +IBUP-232 PO; -NAPR500 PO; -PENI500T PO; -SUBO8MIS SL
[2017-07-09 16:39] VITALS: BP 130/69; PULSE 62; RESP 16; TEMP 98.4; O2SAT 100
--- NOTE | 2017-07-11 11:15 | PD ---
HPI Chief Complaint: Psychiatric Symptoms Time Seen by Provider: 16:39 Travel History International Travel<30 days: No Contact w/Intl Traveler<30days: No History of Present Illness HPI 37-year-old male with history of bipolar presents to the ED for voluntary psychiatric evaluation. Patient endorses suicidal ideation but has no specific plan. He denies previous psychiatric hospitalization or previous suicide attempts. He endorses opiate drug abuse, last use yesterday. He states that he wants to be treated on an inpatient basis. He denies somatic complaints. PFSH Past Medical History Arthritis: No Asthma: No Autoimmune Disease: No Blood Disorders: No Anxiety: No Depression: No Heart Rhythm Problems: No Cancer: No Cardiovascular Problems: No High Cholesterol: No Chemotherapy: No Chest Pain: No Congestive Heart Failure: No COPD: No Cerebrovascular Accident: No Diabetes: No Diminished Hearing: No Endocrine: No Gastrointestinal Disorders: No GERD: No Glaucoma: No Genitourinary: No Headaches: No Hepatitis: No Hiatal Hernia: No Hypertension: No Kidney Stones: No Musculoskeletal: No Neurologic: No Psychiatric: No Reproductive: No Respiratory: No Myocardial Infarction: No Radiation Therapy: No Renal Failure: No Seizures: No Sickle Cell Disease: No Sleep Apnea: No Thyroid Disease: No Ulcer: No Past Surgical History Abdominal Surgery: No AICD: No Cardiac Surgery: No Ear Surgery: No Endocrine Surgery: No Eye Surgery: No Genitourinary Surgery: No Gynecologic Surgery: No Insulin Pump: No Neurologic Surgery: No Oral Surgery: Yes (TONSILLECTOMY) Pacemaker: No Thoracic Surgery: No Tonsillectomy: Yes Other Surgery: Yes Social History Alcohol Use: No Tobacco Use: No Substance Use: Yes (iv drug use) Allergies-Medications (Allergen,Severity, Reaction): Coded Allergies: No Known Allergies (Verified Adverse Reaction, Unknown, 07/09/17) Reported Meds & Prescriptions Reported Meds & Active Scripts Active Review of Systems Except as stated in HPI: all other systems reviewed are Neg Physical Exam Narrative GENERAL: Well-nourished, well-developed white male no acute distress. PSYCH: Calm, cooperative. Does not appear to be responding to internal stimuli. SKIN: Focused skin assessment warm/dry. Multiple tattoos noted. HEAD: Normocephalic. EYES: No scleral icterus. No injection or drainage. Pupils pinpoint bilaterally. RESPIRATORY: No accessory muscle use. MUSCULOSKELETAL: Walks with a normal gait. BACK: No obvious deformity. Data Data Last Documented VS Vital Signs Date Time Temp Pulse Resp B/P (MAP) Pulse Ox O2 Delivery O2 Flow Rate FiO2 07/09/17 16:39 98.4 62 16 130/69 (89) 100 Orders Orders Psych Screen (07/09/17 16:42) MDM Medical Decision Making Medical Screen Exam Complete: Yes Emergency Medical Condition: Yes Differential Diagnosis Adjustment disorder versus anxiety versus bipolar versus depression versus dementia versus electrolyte disorder versus malingering versus mood disorder versus ODD versus psychosis versus PTSD versus schizophrenia versus schizoaffective disorder versus substance-induced mood disorder versus other Narrative Course 37-year-old male with history of bipolar presented to the ED requesting inpatient treatment. Patient endorses history of opiate use, last use yesterday. Vitals reviewed. Limited exam performed in the triage area is reassuring. Lab work pending. Patient is awaiting medical bed placement. Upon being called for his bed in the emergency room the patient is not in the waiting room. Patient left AGAINST MEDICAL ADVICE. Diagnosis Primary Impression: Left against medical advice Patient Instructions: General Instructions Departure Forms: Tests/Procedures Disposition: 07 AGAINST MEDICAL ADVICE Michelle Pérez Jul 11, 2017 11:15
== END 2017-07-09 21:25 | disposition left against medical advice (07) ==
LOC: NED 16:03
DX: F31.9 Bipolar disorder, unspecified (principal); R45.851 Suicidal ideations; F11.10 Opioid abuse, uncomplicated; Z53.20 Procedure and treatment not carried out because of patient's decision for unspecified reasons
CPT/HCPCS: 99281

== ENCOUNTER 2017-07-09 20:40 | Emergency (ER) | payer SELFPAY ==
--- NOTE | 2017-07-09 21:39 | PD ---
HPI Chief Complaint: Medical Clearance Time Seen by Provider: 21:28 Travel History International Travel<30 days: No Contact w/Intl Traveler<30days: No Traveled to known affect area: No History of Present Illness HPI 37-year-old male presents to emergency department voluntarily for psychiatric evaluation. Patient states that he wants to stop using opiates. He last used this morning. States that he has been having worsening depression and suicidal thoughts over the last 2-3 days. They have become stronger today since he decided to stop using opiates. He tells me he has no will to live. He does not have an active plan. He has no acute medical needs at this time. PFSH Past Medical History Arthritis: No Asthma: No Autoimmune Disease: No Blood Disorders: No Bipolar Disorder: Yes Anxiety: No Depression: No Heart Rhythm Problems: No Cancer: No Cardiovascular Problems: No High Cholesterol: No Chemotherapy: No Chest Pain: No Congestive Heart Failure: No COPD: No Cerebrovascular Accident: No Diabetes: No Diminished Hearing: No Endocrine: No Gastrointestinal Disorders: No GERD: No Glaucoma: No Genitourinary: No Headaches: No Hepatitis: No Hiatal Hernia: No Hypertension: No Kidney Stones: No Musculoskeletal: No Neurologic: No Psychiatric: No Reproductive: No Respiratory: No Myocardial Infarction: No Radiation Therapy: No Renal Failure: No Seizures: No Sickle Cell Disease: No Sleep Apnea: No Thyroid Disease: No Ulcer: No Past Surgical History Abdominal Surgery: No AICD: No Cardiac Surgery: No Ear Surgery: No Endocrine Surgery: No Eye Surgery: No Genitourinary Surgery: No Gynecologic Surgery: No Insulin Pump: No Neurologic Surgery: No Oral Surgery: Yes (TONSILLECTOMY) Pacemaker: No Thoracic Surgery: No Tonsillectomy: Yes Other Surgery: Yes Social History Alcohol Use: No Tobacco Use: Yes Substance Use: Yes (iv drug use) Allergies-Medications (Allergen,Severity, Reaction): Coded Allergies: No Known Allergies (Verified Adverse Reaction, Unknown, 07/09/17) Reported Meds & Prescriptions Reported Meds & Active Scripts Active Review of Systems Except as stated in HPI: all other systems reviewed are Neg Physical Exam Narrative GENERAL: Well-nourished male patient, no acute distress. SKIN: Focused skin assessment warm/dry. HEAD: Atraumatic. Normocephalic. EYES: Pupils equal and round. No scleral icterus. No injection or drainage. ENT: No nasal bleeding or discharge. Mucous membranes pink and moist. NECK: Trachea midline. No JVD. CARDIOVASCULAR: Regular rate and rhythm. No murmur appreciated. RESPIRATORY: No accessory muscle use. Clear to auscultation. Breath sounds equal bilaterally. GASTROINTESTINAL: Abdomen soft, non-tender, nondistended. Hepatic and splenic margins not palpable. MUSCULOSKELETAL: No obvious deformities. No clubbing. No cyanosis. No edema. NEUROLOGICAL: Awake and alert. No obvious cranial nerve deficits. Motor grossly within normal limits. Normal speech. Data Data Last Documented VS Vital Signs Date Time Temp Pulse Resp B/P (MAP) Pulse Ox O2 Delivery O2 Flow Rate FiO2 07/09/17 21:44 98.4 63 18 116/70 (85) 98 Room Air Orders Orders Complete Blood Count With Diff (07/09/17 21:37) Thyroid Stimulating Hormone (07/09/17 21:37) Basic Metabolic Panel (Bmp) (07/09/17 21:37) Psych Screen (07/09/17 21:37) Drug Screen, Random Urine (07/09/17 21:37) Alcohol (Ethanol) (07/09/17 21:37) Labs Laboratory Tests Test 07/09/17 23:05 White Blood Count 11.0 TH/MM3 Red Blood Count 4.65 MIL/MM3 Hemoglobin 13.5 GM/DL Hematocrit 40.3 % Mean Corpuscular Volume 86.6 FL Mean Corpuscular Hemoglobin 29.1 PG Mean Corpuscular Hemoglobin Concent 33.6 % Red Cell Distribution Width 13.3 % Platelet Count 227 TH/MM3 Mean Platelet Volume 8.5 FL Neutrophils (%) (Auto) 71.9 % Lymphocytes (%) (Auto) 19.5 % Monocytes (%) (Auto) 7.5 % Eosinophils (%) (Auto) 0.9 % Basophils (%) (Auto) 0.2 % Neutrophils # (Auto) 7.9 TH/MM3 Lymphocytes # (Auto) 2.1 TH/MM3 Monocytes # (Auto) 0.8 TH/MM3 Eosinophils # (Auto) 0.1 TH/MM3 Basophils # (Auto) 0.0 TH/MM3 CBC Comment DIFF FINAL Differential Comment Blood Urea Nitrogen 14 MG/DL Creatinine 0.76 MG/DL Random Glucose 109 MG/DL Calcium Level 8.5 MG/DL Sodium Level 143 MEQ/L Potassium Level 3.5 MEQ/L Chloride Level 104 MEQ/L Carbon Dioxide Level 32.3 MEQ/L Anion Gap 7 MEQ/L Estimat Glomerular Filtration Rate 115 ML/MIN Thyroid Stimulating Hormone 3rd Gen 0.788 uIU/ML Urine Opiates Screen POS Urine Barbiturates Screen NEG Urine Amphetamines Screen NEG Urine Benzodiazepines Screen NEG Urine Cocaine Screen POS Urine Cannabinoids Screen NEG Ethyl Alcohol Level LESS THAN 3 MG/DL MDM Medical Decision Making Medical Screen Exam Complete: Yes Emergency Medical Condition: Yes Medical Record Reviewed: Yes Differential Diagnosis Polysubstance abuse versus mood disorder versus personality disorder versus adjustment reaction disorder versus malignant Narrative Course 37-year-old male presents to emergency department voluntarily for psychiatric evaluation. Initially patient states that he wants detox from opiates. Once he discovers that we are not a detox facility, patient states that he has been feeling more depressed and suicidal. Lab work for medical clearance is ordered. Laboratory Tests Test 07/09/17 23:05 White Blood Count 11.0 TH/MM3 Red Blood Count 4.65 MIL/MM3 Hemoglobin 13.5 GM/DL Hematocrit 40.3 % Mean Corpuscular Volume 86.6 FL Mean Corpuscular Hemoglobin 29.1 PG Mean Corpuscular Hemoglobin Concent 33.6 % Red Cell Distribution Width 13.3 % Platelet Count 227 TH/MM3 Mean Platelet Volume 8.5 FL Neutrophils (%) (Auto) 71.9 % Lymphocytes (%) (Auto) 19.5 % Monocytes (%) (Auto) 7.5 % Eosinophils (%) (Auto) 0.9 % Basophils (%) (Auto) 0.2 % Neutrophils # (Auto) 7.9 TH/MM3 Lymphocytes # (Auto) 2.1 TH/MM3 Monocytes # (Auto) 0.8 TH/MM3 Eosinophils # (Auto) 0.1 TH/MM3 Basophils # (Auto) 0.0 TH/MM3 CBC Comment DIFF FINAL Differential Comment Blood Urea Nitrogen 14 MG/DL Creatinine 0.76 MG/DL Random Glucose 109 MG/DL Calcium Level 8.5 MG/DL Sodium Level 143 MEQ/L Potassium Level 3.5 MEQ/L Chloride Level 104 MEQ/L Carbon Dioxide Level 32.3 MEQ/L Anion Gap 7 MEQ/L Estimat Glomerular Filtration Rate 115 ML/MIN Thyroid Stimulating Hormone 3rd Gen 0.788 uIU/ML Urine Opiates Screen POS Urine Barbiturates Screen NEG Urine Amphetamines Screen NEG Urine Benzodiazepines Screen NEG Urine Cocaine Screen POS Urine Cannabinoids Screen NEG Ethyl Alcohol Level LESS THAN 3 MG/DL Lab work is without acute concern. Patient is medically cleared to undergo psychiatric screening for further evaluation and disposition. Mental health screening discussed with the patient. Psychiatric screen ordered. Diagnosis Primary Impression: Polysubstance abuse Additional Impression: Depression Qualified Codes: F32.9 - Major depressive disorder, single episode, unspecified Condition: Stable Yessy Fontenot Jul 09, 2017 21:39
[2017-07-09 21:44] VITALS: BP 116/70; PULSE 63; RESP 18; TEMP 98.4; O2SAT 98
[2017-07-10 00:17] LABS: AUTOMATED NEUTROPHIL # 7.9 TH/MM3 (1.8-7.7); BASOPHIL % 0.2 % (0.0-2.0); EOSINOPHIL # 0.1 TH/MM3 (0-0.4); EOSINOPHIL % 0.9 % (0.0-4.0); HEMATOCRIT 40.3 % (39.0-51.0); HEMOGLOBIN 13.5 GM/DL (13.0-17.0); LYMPH % 19.5 % (9.0-44.0); LYMPHOCYTE # 2.1 TH/MM3 (1.0-4.8); MEAN CELL VOLUME 86.6 FL (80.0-100.0); MEAN CORPUSCULAR HEMOGLOBIN 29.1 PG (27.0-34.0); MEAN CORPUSCULAR HGB CONC 33.6 % (32.0-36.0); MEAN PLATELET VOLUME 8.5 FL (7.0-11.0); MONO % 7.5 % (0.0-8.0); MONOCYTE # 0.8 TH/MM3 (0-0.9); NEUT % 71.9 % (16.0-70.0); PLATELET COUNT 227 TH/MM3 (150-450); RED BLOOD COUNT 4.65 MIL/MM3 (4.50-5.90); RED CELL DISTRIBUTION WIDTH 13.3 % (11.6-17.2)
[2017-07-10 00:36] LABS: BICARBONATE 32.3 MEQ/L (21.0-32.0); BLOOD UREA NITROGEN 14 MG/DL (7-18); CALCIUM 8.5 MG/DL (8.5-10.1); CHLORIDE 104 MEQ/L (98-107); CREATININE 0.76 MG/DL (0.60-1.30); GLOMERULAR FILTRATION RATE 115 ML/MIN (>89); GLUCOSE,RANDOM 109 MG/DL (74-106); SODIUM (NA) 143 MEQ/L (136-145)
--- NOTE | 2017-07-10 06:48 | PD.PSY.CON ---
Provisional Diagnosis Admission Date Date of consultation is 07/10/2017 Foster I. 1. Polysubstance abuse Suspect malingering psychiatric symptoms to obtain detoxification services Foster II. Deferred History of Present Illness Service Psychiatry Consult Requested By Emergency department Reason for Consult Voluntary psychiatric evaluation Primary Care Physician No Primary Care Physician HPI Mr. Hayes is a 37-year-old male with a reported history of bipolar disorder who presents on a voluntary basis for psychiatric evaluation. Patient told the ED provider that he wanted to stop using opiates and reported that he was feeling depressed and suicidal. Patient's urine toxicology was positive for opiates as well as cocaine. Reviewing the electronic medical record, I see no previous psychiatric contact within our system. Patient seen and examined. Chart reviewed. Case discussed with staff in the ED. On my examination today, the patient tells me "I'd like to get into detox at [facility]." He reports that he feels that he "need[s] help" with his substance use issues. He is unable to generate a reason for why he is seeking detoxification services today in particular however. He denies any suicidal or homicidal ideation, intent or plan and contracts for safety. I can elicit no jesus kenneth depressive or hypomanic/manic symptoms in this patient at this time although he is somewhat dysphoric, I suspect in the setting of incipient substance withdrawal, and the patient does complain of some subjective nausea and shakiness. He denies any audiovisual hallucinations. I can elicit no delusional beliefs. There is no evidence of any impairment in reality construction. The patient is notably future oriented and says "I want to clean up, straighten up, live my life happy." The remainder of the psychiatric ROS is negative. Besides the above, the patient has no acute physical complaints. Past psychiatric history: The patient reports a history of bipolar disorder. He has not been under the care of a psychiatrist in about 10 years he tells me. He takes no psychotropic medications. He denies any history of psychiatric admissions. He denies any history of suicide attempts or violent behavior. Family history: The patient reports that his father has bipolar disorder and has attempted suicide in the past. He reports that both his parents have substance use issues and as consequence of their substance use. Chemical dependency history: The patient reports that he uses about a gram a day of heroin. He also uses crack cocaine. He denies any use of alcohol, benzodiazepines or other GABAergic agents. He denies any other substance use. He reports that his longest sober 2 years. Social history: The patient is presently without stable housing. He is single with 2 children. Substance use has apparently strained his relationship with his children. He attended the 12th grade but did not graduate high school. He is not presently working. He has no income. He denies any history. Denies any legal history. Denies any access to guns or firearms. He is a [employer]. Review of Systems Except as stated in HPI: all other systems reviewed are Neg Past Family Social History Coded Allergies: No Known Allergies (Verified Adverse Reaction, Unknown, 07/09/17) Past Medical History Patient denies any past medical history Discontinued Scripts Ibuprofen (Ibuprofen) 600 Mg Tab, 600 MG PO Q6H Y for PAIN, #120 TAB 0 Refills Prov:Donna Robison MD, R1 04/25/17 Doxycycline Hyclate (Doxycycline Hyclate) 100 Mg Cap, 100 MG PO BID for Infection for 14 Days, #28 CAP 0 Refills Prov:Donna Robison MD, R1 04/25/17 Patient's Strengths (min. 2) Able to access clinical care. Verbally fluent. Physical Exam Physical examination completed by ED provider. On my examination today, the patient appears to be in no acute physical distress. I appreciate no lacrimation, no rhinorrhea, no piloerection, no other signs of opiate withdrawal. No other signs or withdrawal noted. No other motoric abnormalities noted. Laboratories and vital signs reviewed: Vital Signs Vital Signs Date Time Temp Pulse Resp B/P (MAP) Pulse Ox O2 Delivery O2 Flow Rate FiO2 07/09/17 21:44 98.4 63 18 116/70 (85) 98 Room Air Lab Results Test 07/09/17 23:05 White Blood Count 11.0 TH/MM3 Red Blood Count 4.65 MIL/MM3 Hemoglobin 13.5 GM/DL Hematocrit 40.3 % Mean Corpuscular Volume 86.6 FL Mean Corpuscular Hemoglobin 29.1 PG Mean Corpuscular Hemoglobin Concent 33.6 % Red Cell Distribution Width 13.3 % Platelet Count 227 TH/MM3 Mean Platelet Volume 8.5 FL Neutrophils (%) (Auto) 71.9 % Lymphocytes (%) (Auto) 19.5 % Monocytes (%) (Auto) 7.5 % Eosinophils (%) (Auto) 0.9 % Basophils (%) (Auto) 0.2 % Neutrophils # (Auto) 7.9 TH/MM3 Lymphocytes # (Auto) 2.1 TH/MM3 Monocytes # (Auto) 0.8 TH/MM3 Eosinophils # (Auto) 0.1 TH/MM3 Basophils # (Auto) 0.0 TH/MM3 CBC Comment DIFF FINAL Differential Comment Blood Urea Nitrogen 14 MG/DL Creatinine 0.76 MG/DL Random Glucose 109 MG/DL Calcium Level 8.5 MG/DL Sodium Level 143 MEQ/L Potassium Level 3.5 MEQ/L Chloride Level 104 MEQ/L Carbon Dioxide Level 32.3 MEQ/L Anion Gap 7 MEQ/L Estimat Glomerular Filtration Rate 115 ML/MIN Thyroid Stimulating Hormone 3rd Gen 0.788 uIU/ML Urine Opiates Screen POS Urine Barbiturates Screen NEG Urine Amphetamines Screen NEG Urine Benzodiazepines Screen NEG Urine Cocaine Screen POS Urine Cannabinoids Screen NEG Ethyl Alcohol Level LESS THAN 3 MG/DL Mental Status Examination Appearance: Other (Grooming and hygiene are fair. The patient is maintaining basic hygiene.) Consciousness: Alert Orientation: x4 Motor Activity: Other (No motor abnormalities noted) Speech: Unremarkable Language: Adequate Fund of Knowledge: Adequate Attention and Concentration: Adequate Memory: Unremarkable Mood: Appropriate, Other (Mildly dysphoric but not severely depressed) Affect: Appropriate Thought Process & Associations: Intact, Logical, Goal directed, Linear Thought Content: Appropriate Hallucination Type: None Delusion Type: None Suicidal Ideation: No Suicidal Plan: No Suicidal Intention: No Homicidal Ideation: No Homicidal Plan: No Homicidal Intention: No Insight: Adequate Judgment: Adequate Assessment & Plan Problem List: (1) Polysubstance abuse ICD Codes: F19.10 - Other psychoactive substance abuse, uncomplicated Status: Acute Assessment & Plan 37-year-old male with psychiatric history as detailed above who presents voluntarily to the emergency room for psychiatric evaluation. On my examination today, the patient is requesting detoxification services. He apparently verbalized some suicidal ideation last night in the setting of trying to obtain detoxification services, and I do suspect that this was malingered. Presently he denies suicidal or homicidal ideation. He continues to desire detoxification services. There is no evidence of unstable mental illness has defined under the Castel[place] act in this patient at this time. He is attending to his basic needs. He does not meet Cast[place] act criteria presently. He would not benefit from admission to the General inpatient psychiatric unit at this time. I have instructed the nursing staff to endeavor to get the patient a bed at [facility] for detox. If no bed is available, the patient will be referred for outpatient chemical dependency services at [facility]. I have supported the patient in his desire for abstinence from substances. I have counseled the patient regarding warning signs for need to return to the psychiatric emergency room as part of a general safety plan. Patient is otherwise psychiatrically clear for discharge from the ED. Miguel Zaidi MD Jul 10, 2017 06:48
[2017-07-10 07:00] VITALS: BP 120/62; PULSE 68; RESP 12; O2SAT 95
--- NOTE | 2017-07-10 07:28 | PD ---
Physical Exam Time Seen by Provider: 07:[address] Perez has evaluated the patient and cleared the patient for discharge. Data Data Last Documented VS Vital Signs Date Time Temp Pulse Resp B/P (MAP) Pulse Ox O2 Delivery O2 Flow Rate FiO2 07/10/17 07:00 68 12 120/62 (81) 95 Room Air 07/09/17 21:44 98.4 Orders Orders Complete Blood Count With Diff (07/09/17 21:37) Thyroid Stimulating Hormone (07/09/17 21:37) Basic Metabolic Panel (Bmp) (07/09/17 21:37) Psych Screen (07/09/17 21:37) Drug Screen, Random Urine (07/09/17 21:37) Alcohol (Ethanol) (07/09/17 21:37) Diet Regular Basic (07/10/17 Breakfast) Labs Laboratory Tests Test 07/09/17 23:05 White Blood Count 11.0 TH/MM3 Red Blood Count 4.65 MIL/MM3 Hemoglobin 13.5 GM/DL Hematocrit 40.3 % Mean Corpuscular Volume 86.6 FL Mean Corpuscular Hemoglobin 29.1 PG Mean Corpuscular Hemoglobin Concent 33.6 % Red Cell Distribution Width 13.3 % Platelet Count 227 TH/MM3 Mean Platelet Volume 8.5 FL Neutrophils (%) (Auto) 71.9 % Lymphocytes (%) (Auto) 19.5 % Monocytes (%) (Auto) 7.5 % Eosinophils (%) (Auto) 0.9 % Basophils (%) (Auto) 0.2 % Neutrophils # (Auto) 7.9 TH/MM3 Lymphocytes # (Auto) 2.1 TH/MM3 Monocytes # (Auto) 0.8 TH/MM3 Eosinophils # (Auto) 0.1 TH/MM3 Basophils # (Auto) 0.0 TH/MM3 CBC Comment DIFF FINAL Differential Comment Blood Urea Nitrogen 14 MG/DL Creatinine 0.76 MG/DL Random Glucose 109 MG/DL Calcium Level 8.5 MG/DL Sodium Level 143 MEQ/L Potassium Level 3.5 MEQ/L Chloride Level 104 MEQ/L Carbon Dioxide Level 32.3 MEQ/L Anion Gap 7 MEQ/L Estimat Glomerular Filtration Rate 115 ML/MIN Thyroid Stimulating Hormone 3rd Gen 0.788 uIU/ML Urine Opiates Screen POS Urine Barbiturates Screen NEG Urine Amphetamines Screen NEG Urine Benzodiazepines Screen NEG Urine Cocaine Screen POS Urine Cannabinoids Screen NEG Ethyl Alcohol Level LESS THAN 3 MG/DL MDM Supervised Visit with JELLY: No Narrative Course Dr. Perez has evaluated the patient and cleared the patient for discharge. Patient contracts safety. Denies suicidal or homicidal ideations. Patient will be provided community resource packet to [facility] for follow-up. Has friends and family for support. Patient was medically cleared by alternate provider prior to psych screening. Patient has been evaluated by psychiatry and and is now cleared for discharge. Diagnosis Primary Impression: Polysubstance abuse Additional Impression: Depression Qualified Codes: F32.9 - Major depressive disorder, single episode, unspecified Referrals: [facility] (Out patient) [facility] Primary Care Physician Psychiatrist [facility] Patient Instructions: Depression (ED), General Instructions, Polysubstance Abuse (ED) Additional Instruction: Contract safety to your self and others Follow-up with psychiatry Follow-up with primary care provider Follow-up with [facility] Return to the emergency department immediately with worsening of symptoms Med/Other Pt SpecificInfo: No Change to Meds, No Meds Exist/No RX given Disposition: 01 DISCHARGE HOME Condition: Stable Danii Breaux Jul 10, 2017 07:28
== END 2017-07-10 07:51 | disposition home or self-care (01) ==
LOC: NEPD 20:40
DX: F19.10 Other psychoactive substance abuse, uncomplicated (principal); F32.9 Major depressive disorder, single episode, unspecified; R45.851 Suicidal ideations; Z72.0 Tobacco use
CPT/HCPCS: 80048; 80307; 84443; 85025; 99283

== ENCOUNTER 2017-07-12 14:55 | Emergency (ER) | payer SELFPAY ==
[~2017-07-12] VITALS: Ht 172.7 cm; Wt 68.0 kg
[2017-07-12 14:59] VITALS: BP 147/86; PULSE 89; RESP 18; TEMP 99.6; O2SAT 98
--- NOTE | 2017-07-12 16:20 | PD ---
HPI Chief Complaint: Suicide Ideation/Attempt Time Seen by Provider: 16:00 Travel History International Travel<30 days: No Contact w/Intl Traveler<30days: No Traveled to known affect area: No History of Present Illness HPI 37-year-old male with history of IV drug abuse, presents emergency department stating he is suicidal," I cannot do this anymore". He states he uses heroin, and last used 3 or 4 hours ago. He denies any specific plan. He has no current acute medical problems. Patient is requesting a psych evaluation as he is feeling suicidal, and is requesting help with rehab. He has no known drug allergies. PFSH Past Medical History Arthritis: No Asthma: No Autoimmune Disease: No Blood Disorders: No Bipolar Disorder: Yes Anxiety: No Depression: No Heart Rhythm Problems: No Cancer: No Cardiovascular Problems: No High Cholesterol: No Chemotherapy: No Chest Pain: No Congestive Heart Failure: No COPD: No Cerebrovascular Accident: No Diabetes: No Diminished Hearing: No Endocrine: No Gastrointestinal Disorders: No GERD: No Glaucoma: No Genitourinary: No Headaches: No Hepatitis: No Hiatal Hernia: No Hypertension: No Kidney Stones: No Musculoskeletal: No Neurologic: No Psychiatric: No Reproductive: No Respiratory: No Myocardial Infarction: No Radiation Therapy: No Renal Failure: No Seizures: No Sickle Cell Disease: No Sleep Apnea: No Thyroid Disease: No Ulcer: No Past Surgical History Abdominal Surgery: No AICD: No Cardiac Surgery: No Ear Surgery: No Endocrine Surgery: No Eye Surgery: No Genitourinary Surgery: No Gynecologic Surgery: No Insulin Pump: No Neurologic Surgery: No Oral Surgery: Yes (TONSILLECTOMY) Pacemaker: No Thoracic Surgery: No Tonsillectomy: Yes Other Surgery: Yes Social History Alcohol Use: No Tobacco Use: Yes (1 ppd) Substance Use: Yes (heroin, cocaine) Allergies-Medications (Allergen,Severity, Reaction): Coded Allergies: No Known Allergies (Verified Adverse Reaction, Unknown, 07/12/17) Reported Meds & Prescriptions Reported Meds & Active Scripts Active No Active Prescriptions or Reported Medications Review of Systems Except as stated in HPI: all other systems reviewed are Neg General / Constitutional: No: Fever Eyes: No: Visual changes HENT: No: Headaches Cardiovascular: No: Chest Pain or Discomfort Respiratory: No: Shortness of Breath Gastrointestinal: No: Abdominal Pain Genitourinary: No: Dysuria Musculoskeletal: No: Pain Skin: No Rash Neurologic: No: Weakness Psychiatric: Positive: Depression, Suicidal Ideations, Substance Abuse, No: Mood Disorder, Homicidal Ideation Endocrine: No: Polydipsia Hematologic/Lymphatic: No: Easy Bruising Physical Exam Narrative GENERAL: Patient appears flat, and depressed. SKIN: Warm and dry. Normal color. Normal turgor. Patient is obvious IV track lyman to both arms, without signs of cellulitis or abscess. HEAD: Atraumatic. Normocephalic. EYES: Pupils equal and round. No scleral icterus. No injection or drainage. ENT: No nasal bleeding or discharge. Mucous membranes pink and moist. Pharynx is clear. Airways patent. NECK: Trachea midline. Supple nontender CARDIOVASCULAR: Regular rate and rhythm. No murmurs gallops or rubs appreciated. RESPIRATORY: No accessory muscle use. Clear to auscultation. Breath sounds equal bilaterally. GASTROINTESTINAL: Abdomen soft, non-tender, nondistended. Hepatic and splenic margins not palpable. MUSCULOSKELETAL: Extremities without clubbing, cyanosis, or edema. No obvious deformities. NEUROLOGICAL: Awake and alert. No obvious cranial nerve deficits. Motor grossly within normal limits. Five out of 5 muscle strength in the arms and legs. Normal speech. PSYCHIATRIC: Appropriate mood and affect; insight and judgment normal. Data Data Last Documented VS Vital Signs Date Time Temp Pulse Resp B/P (MAP) Pulse Ox O2 Delivery O2 Flow Rate FiO2 07/12/17 16:05 Room Air 07/12/17 14:59 99.6 89 18 147/86 (106) 98 Orders Orders Complete Blood Count With Diff (07/12/17 16:17) Comprehensive Metabolic Panel (07/12/17 16:17) Thyroid Stimulating Hormone (07/12/17 16:17) Urinalysis - C+S If Indicated (07/12/17 16:17) Psych Screen (07/12/17 16:17) Drug Screen, Random Urine (07/12/17 16:17) Alcohol (Ethanol) (07/12/17 16:17) [facility] Medical Decision Making Medical Screen Exam Complete: Yes Emergency Medical Condition: Yes Medical Record Reviewed: Yes Differential Diagnosis Chronic IV drug abuse. Depression. Suicidal ideation. Voluntary. Narrative Course Patient appears medically stable at time of exam. Psychiatric labs ordered as per protocol. Patient is medically clear for psychiatric evaluation. Psychiatric screening is ordered Scripts No Active Prescriptions or Reported Meds Condition: Rafael Nina Jul 12, 2017 16:20
[2017-07-12 16:49] LABS: AUTOMATED NEUTROPHIL # 14.2 TH/MM3 (1.8-7.7); BASOPHIL # 0.1 TH/MM3 (0-0.2); BASOPHIL % 0.3 % (0.0-2.0); EOSINOPHIL # 0.1 TH/MM3 (0-0.4); EOSINOPHIL % 0.4 % (0.0-4.0); HEMATOCRIT 39.2 % (39.0-51.0); HEMOGLOBIN 13.2 GM/DL (13.0-17.0); LYMPH % 8.2 % (9.0-44.0); LYMPHOCYTE # 1.3 TH/MM3 (1.0-4.8); MEAN CORPUSCULAR HEMOGLOBIN 28.8 PG (27.0-34.0); MEAN CORPUSCULAR HGB CONC 33.5 % (32.0-36.0); MEAN PLATELET VOLUME 8.2 FL (7.0-11.0); MONO % 4.1 % (0.0-8.0); MONOCYTE # 0.7 TH/MM3 (0-0.9); PLATELET COUNT 218 TH/MM3 (150-450); RED BLOOD COUNT 4.56 MIL/MM3 (4.50-5.90); RED CELL DISTRIBUTION WIDTH 13.2 % (11.6-17.2); WHITE BLOOD COUNT 16.3 TH/MM3 (4.0-11.0)
[2017-07-12 17:18] LABS: ALBUMIN 3.1 GM/DL (3.4-5.0); ALT (GPT) 23 U/L (12-78); AST (GOT) 12 U/L (15-37); BICARBONATE 30.3 MEQ/L (21.0-32.0); BLOOD UREA NITROGEN 9 MG/DL (7-18); CALCIUM 8.6 MG/DL (8.5-10.1); CHLORIDE 101 MEQ/L (98-107); GLOMERULAR FILTRATION RATE 127 ML/MIN (>89); GLUCOSE,RANDOM 122 MG/DL (74-106); SODIUM (NA) 138 MEQ/L (136-145)
[2017-07-12 17:29] LABS: ALKALINE PHOSPHATASE 82 U/L (45-117); TOTAL BILIRUBIN ADULT 0.4 MG/DL (0.2-1.0); TOTAL PROTEIN 7.1 GM/DL (6.4-8.2)
[2017-07-12 17:46] LABS: URINE COLOR YELLOW (YELLW/STRAW)
[2017-07-12 17:47] LABS: BILIRUBIN, URINE NEGATIVE (NEG); BLOOD, URINE TRACE (NEG); GLUCOSE,URINE NEG (NEG); KETONE, URINE NEG (NEG); NITRITE,URINE NEG (NEG)
[2017-07-12 17:49] LABS: SQUAMOUS EPITHELIAL CELL URINE 1 /hpf (0-5)
[2017-07-12 17:50] LABS: HYALINE CAST, URINE 2 /lpf (RARE); MUCUS URINE MOD /lpf (OCC)
[2017-07-12 18:00] VITALS: BP 134/63; PULSE 73; RESP 16; TEMP 98.7; O2SAT 97
[2017-07-12 22:29] VITALS: BP 128/66; PULSE 56; RESP 18; TEMP 99.5; O2SAT 95
[2017-07-13 07:03] VITALS: BP 121/66; PULSE 52; RESP 18; TEMP 98.1; O2SAT 98
--- NOTE | 2017-07-13 08:12 | PD ---
Data Data Last Documented VS Vital Signs Date Time Temp Pulse Resp B/P (MAP) Pulse Ox O2 Delivery O2 Flow Rate FiO2 07/13/17 07:03 98.1 52 18 121/66 (84) 98 Room Air Orders Orders Complete Blood Count With Diff (07/12/17 16:17) Comprehensive Metabolic Panel (07/12/17 16:17) Thyroid Stimulating Hormone (07/12/17 16:17) Urinalysis - C+S If Indicated (07/12/17 16:17) Psych Screen (07/12/17 16:17) Drug Screen, Random Urine (07/12/17 16:17) Alcohol (Ethanol) (07/12/17 16:17) Diet Regular Basic (07/12/17 Dinner) Diet Regular Basic (07/13/17 Breakfast) Labs Laboratory Tests Test 07/12/17 16:20 07/12/17 16:25 Urine Color YELLOW Urine Turbidity CLEAR Urine pH 5.0 Urine Specific [place] 1.015 Urine Protein TRACE mg/dL Urine Glucose (UA) NEG mg/dL Urine Ketones NEG mg/dL Urine Occult Blood TRACE Urine Nitrite NEG Urine Bilirubin NEGATIVE Urine RBC 3 /hpf Urine WBC 1 /hpf Urine Squamous Epithelial Cells 1 /hpf Urine Hyaline Casts 2 /lpf Urine Mucus MOD /lpf Microscopic Urinalysis Comment CULT NOT INDICATED Urine Opiates Screen POS Urine Barbiturates Screen NEG Urine Amphetamines Screen NEG Urine Benzodiazepines Screen NEG Urine Cocaine Screen POS Urine Cannabinoids Screen NEG White Blood Count 16.3 TH/MM3 Red Blood Count 4.56 MIL/MM3 Hemoglobin 13.2 GM/DL Hematocrit 39.2 % Mean Corpuscular Volume 86.0 FL Mean Corpuscular Hemoglobin 28.8 PG Mean Corpuscular Hemoglobin Concent 33.5 % Red Cell Distribution Width 13.2 % Platelet Count 218 TH/MM3 Mean Platelet Volume 8.2 FL Neutrophils (%) (Auto) 87.0 % Lymphocytes (%) (Auto) 8.2 % Monocytes (%) (Auto) 4.1 % Eosinophils (%) (Auto) 0.4 % Basophils (%) (Auto) 0.3 % Neutrophils # (Auto) 14.2 TH/MM3 Lymphocytes # (Auto) 1.3 TH/MM3 Monocytes # (Auto) 0.7 TH/MM3 Eosinophils # (Auto) 0.1 TH/MM3 Basophils # (Auto) 0.1 TH/MM3 CBC Comment DIFF FINAL Differential Comment Blood Urea Nitrogen 9 MG/DL Creatinine 0.70 MG/DL Random Glucose 122 MG/DL Total Protein 7.1 GM/DL Albumin 3.1 GM/DL Calcium Level 8.6 MG/DL Alkaline Phosphatase 82 U/L Aspartate Amino Transf (AST/SGOT) 12 U/L Alanine Aminotransferase (ALT/SGPT) 23 U/L Total Bilirubin 0.4 MG/DL Sodium Level 138 MEQ/L Potassium Level 4.0 MEQ/L Chloride Level 101 MEQ/L Carbon Dioxide Level 30.3 MEQ/L Anion Gap 7 MEQ/L Estimat Glomerular Filtration Rate 127 ML/MIN Thyroid Stimulating Hormone 3rd Gen 0.220 uIU/ML Ethyl Alcohol Level LESS THAN 3 MG/DL MDM Medical Record Reviewed: Yes Supervised Visit with JELLY: No Narrative Course See previous providers notes for complete history of present illness. This patient has been seen by psychiatrist Dr. Clay and cleared by the psychiatry department. There is no medical issue that would warrant additional hospitalization. He is stable for discharge. Diagnosis Primary Impression: Substance induced mood disorder Med/Other Pt SpecificInfo: No Change to Meds Scripts No Active Prescriptions or Reported Meds Disposition: DISCHARGE HOME Condition: Stable Alvarado Martinez Jul 13, 2017 08:12
--- NOTE | 2017-07-13 09:39 | PD ---
History of Present Illness Chief Complaint: Suicide Ideation/Attempt Time Seen by Provider: 07:29 Travel History International Travel<30 Days: No Contact w/Intl Traveler<30days: No Known affected area: No Legal Status Legal Status: Voluntary History of Present Illness: Patient is a 37 y/o male who presents to the Emergency Department on a voluntary basis for psychiatric evaluation. Patient told ED provider that he was in the ED on 07/09/17 because he wanted to stop using opiates but he left AMA. He returns the Emergency Department feeling depressed and suicidal. Patient's urine toxicology screen was positive for cocaine and opiates. Patient states his last use of IV heroin was two days ago. He admits to also doing cocaine on a regular basis. Patent seen and examined and chart reviewed. Case discussed with staff in the ED. On my examination today, patient states " I need to get into detox, I have been using heroin for 10 years and I want to stop." Patient is not , has two female children, unemployed and states that he has not been under psychiatric care. Prior notes state that at one point he was diagnosed as bipolar, but patient denies this diagnosis or treatment. He takes no psychiatric medications. States that his parents are and had substance abuse concerns. His relationship with his children has been strained due to his drug use. He has suffered from polysubstance abuse for a long time. He denies AVH. No delusional beliefs. Patient is alert and oriented. He denies any legal concerns or access to guns. He completed the 12th grade , unemployed with no income. Patient denies suicidal ideation and acknowledges that he needs a treatment program to help him with his polysubstance abuse. Patient referred to [facility] for assistance with his polysubstance abuse. He currently does not meet admission criteria and is at low risk for harm. 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 PFSH Past Medical History Arthritis: No Asthma: No Autoimmune Disease: No Blood Disorders: No Bipolar Disorder: Yes Anxiety: No Depression: No Heart Rhythm Problems: No Cancer: No Cardiovascular Problems: No High Cholesterol: No Chemotherapy: No Chest Pain: No Congestive Heart Failure: No COPD: No Cerebrovascular Accident: No Diabetes: No Diminished Hearing: No Endocrine: No Gastrointestinal Disorders: No GERD: No Glaucoma: No Genitourinary: No Headaches: No Hepatitis: No Hiatal Hernia: No Hypertension: No Kidney Stones: No Musculoskeletal: No Neurologic: No Psychiatric: No Reproductive: No Respiratory: No Myocardial Infarction: No Radiation Therapy: No Renal Failure: No Seizures: No Sickle Cell Disease: No Sleep Apnea: No Thyroid Disease: No Ulcer: No Past Surgical History Abdominal Surgery: No AICD: No Cardiac Surgery: No Ear Surgery: No Endocrine Surgery: No Eye Surgery: No Genitourinary Surgery: No Gynecologic Surgery: No Insulin Pump: No Neurologic Surgery: No Oral Surgery: Yes (TONSILLECTOMY) Pacemaker: No Thoracic Surgery: No Tonsillectomy: Yes Other Surgery: Yes Psychiatric History Psychiatric History Hx Psychiatric Treatment: NO PREVIOUS TREATMENT. REPORTS THAT HE WAS DIAGNOSED WITH BIPOLAR A LONG TIME AGO BY A DOCTOR IN [place] History of Inpatient Treatment: No Social History Hx Alcohol Use: No Hx Tobacco Use: Yes (1 ppd) Hx Substance Use: Yes (heroin, cocaine) Substance Use Type: Crack, Heroin, Cocaine, Synth Opiates-Pain Pills Hx of Substance Use Treatment: Yes Allergies-Medications (Allergen,Severity, Reaction): Coded Allergies: No Known Allergies (Verified Adverse Reaction, Unknown, 07/12/17) Reported Meds & Prescriptions Reported Meds & Active Scripts Active No Active Prescriptions or Reported Medications Mental Status Examination Appearance: Appropriate Consciousness: Alert Orientation: x4 Motor Activity: Normal gait Speech: Unremarkable Language: Adequate Fund of Knowledge: Adequate Attention and Concentration: Adequate Memory: Unremarkable Mood: Anxious, Irritable Affect: Irritable Thought Process & Associations: Intact, Logical Thought Content: Appropriate Hallucination Type: None Delusion Type: None Suicidal Ideation: No Suicidal Plan: No Suicidal Intention: No Homicidal Ideation: No Homicidal Plan: No Homicidal Intention: No Insight: Adequate Judgment: Adequate MDM Medical Decision Making Assessment/Plan The patient does not psychiatric admission. He is logical and able to articulate his needs. He has been referred to [facility] for detox. Orders Orders Complete Blood Count With Diff (07/12/17 16:17) Comprehensive Metabolic Panel (07/12/17 16:17) Thyroid Stimulating Hormone (07/12/17 16:17) Urinalysis - C+S If Indicated (07/12/17 16:17) Psych Screen (07/12/17 16:17) Drug Screen, Random Urine (07/12/17 16:17) Alcohol (Ethanol) (07/12/17 16:17) Diet Regular Basic (07/12/17 Dinner) Ed Discharge Order (07/13/17 08:12) Results Vital Signs Date Time Temp Pulse Resp B/P (MAP) Pulse Ox O2 Delivery O2 Flow Rate FiO2 07/13/17 08:18 07/13/17 07:03 98.1 52 18 121/66 (84) 98 Room Air 07/12/17 22:29 99.5 56 18 128/66 (86) 95 Room Air 07/12/17 18:00 98.7 73 16 134/63 (86) 97 Room Air 07/12/17 16:05 Room Air 07/12/17 14:59 99.6 89 18 147/86 (106) 98 Laboratory Tests Test 07/12/17 16:20 07/12/17 16:25 Urine Color YELLOW Urine Turbidity CLEAR Urine pH 5.0 Urine Specific [place] 1.015 Urine Protein TRACE Urine Glucose (UA) NEG Urine Ketones NEG Urine Occult Blood TRACE Urine Nitrite NEG Urine Bilirubin NEGATIVE Urine RBC 3 Urine WBC 1 Urine Squamous Epithelial Cells 1 Urine Hyaline Casts 2 Urine Mucus MOD Microscopic Urinalysis Comment CULT NOT INDICATED Urine Opiates Screen POS Urine Barbiturates Screen NEG Urine Amphetamines Screen NEG Urine Benzodiazepines Screen NEG Urine Cocaine Screen POS Urine Cannabinoids Screen NEG White Blood Count 16.3 Red Blood Count 4.56 Hemoglobin 13.2 Hematocrit 39.2 Mean Corpuscular Volume 86.0 Mean Corpuscular Hemoglobin 28.8 Mean Corpuscular Hemoglobin Concent 33.5 Red Cell Distribution Width 13.2 Platelet Count 218 Mean Platelet Volume 8.2 Neutrophils (%) (Auto) 87.0 Lymphocytes (%) (Auto) 8.2 Monocytes (%) (Auto) 4.1 Eosinophils (%) (Auto) 0.4 Basophils (%) (Auto) 0.3 Neutrophils # (Auto) 14.2 Lymphocytes # (Auto) 1.3 Monocytes # (Auto) 0.7 Eosinophils # (Auto) 0.1 Basophils # (Auto) 0.1 CBC Comment DIFF FINAL Differential Comment Blood Urea Nitrogen 9 Creatinine 0.70 Random Glucose 122 Total Protein 7.1 Albumin 3.1 Calcium Level 8.6 Alkaline Phosphatase 82 Aspartate Amino Transf (AST/SGOT) 12 Alanine Aminotransferase (ALT/SGPT) 23 Total Bilirubin 0.4 Sodium Level 138 Potassium Level 4.0 Chloride Level 101 Carbon Dioxide Level 30.3 Anion Gap 7 Estimat Glomerular Filtration Rate 127 Thyroid Stimulating Hormone 3rd Gen 0.220 Ethyl Alcohol Level LESS THAN 3 Diagnosis Primary Impression: Substance induced mood disorder Departure Forms: Tests/Procedures Patient Instructions: General Instructions, Mood Disorders (ED) Prescriptions No Active Prescriptions or Reported Meds Disposition: DISCHARGE HOME Condition: Stable Ragini Franklin Jul 13, 2017 09:39
== END 2017-07-13 08:28 | disposition home or self-care (01) ==
LOC: NEPJ 14:55
DX: F19.94 Other psychoactive substance use, unspecified with psychoactive substance-induced mood disorder (principal); F11.10 Opioid abuse, uncomplicated; F14.10 Cocaine abuse, uncomplicated; F31.9 Bipolar disorder, unspecified; Z87.891 Personal history of nicotine dependence
CPT/HCPCS: 80053; 80307; 81001; 84443; 85025; 99283

== ENCOUNTER 2017-09-09 23:07 | Emergency (ER) | payer SELFPAY ==
[~2017-09-09] VITALS: Ht 170.2 cm; Wt 70.0 kg
[2017-09-09 23:13] VITALS: BP 137/66; PULSE 81; RESP 18; TEMP 99.7; O2SAT 99
== END 2017-09-10 03:42 | disposition left against medical advice (07) ==
LOC: NED 23:07
DX: N20.0 Calculus of kidney (principal)
CPT/HCPCS: 99281

== ENCOUNTER 2017-09-10 04:05 | Inpatient (IN) | payer SELFPAY ==
[~2017-09-10] VITALS: Ht 170.2 cm; Wt 59.0 kg
[2017-09-10] VITALS (13 sets, daily range): BP systolic 113–157; BP diastolic 58–111; PULSE 50–76; RESP 16–20; TEMP 98.6–102; O2SAT 94–99
[2017-09-10] MEDS ORDERED: PIPERACIL-TAZO 3.375 GM PREMIX 50 ML IV ONE (04:45)
[2017-09-10] MEDS ORDERED: VANCOMYCIN INJ 1,000 MG in SODIUM CHLOR 0.9% 250 ML INJ 250 ML IV ONE (04:45)
[2017-09-10] MEDS ORDERED: SODIUM CHLOR 0.9% 1000 ML INJ 1,000 ML IV ONE (04:45)
[2017-09-10] MEDS ORDERED: PROCHLORPERAZINE INJ 10 MG/2 ML VIAL IV PUSH ONE (04:45)
--- NOTE | 2017-09-10 05:03 | RADRPT ---
EXAM DATE: 09/10/2017 4:57 AM EDT AGE/SEX: 37 years / Male INDICATIONS: Kidney stones. Fever. CLINICAL DATA: This is the patient's initial encounter. Patient reports that signs and symptoms have been present for 1 day and indicates a pain score of 8/10. MEDICAL/SURGICAL HISTORY: None. None. COMPARISON: [facility] [place], CHEST SINGLE AP, 10/20/2012. . FINDINGS: Single AP view of the chest. The lungs are clear. Cardiomediastinal silhouette within norm al limits. No evidence of pleural effusion or pneumothorax. CONCLUSION: No acute cardiopulmonary disease identified. Electronically signed by: Yovany Grimm MD 09/10/2017 5:01 AM EDT
[2017-09-10 05:51] LABS: BILIRUBIN, URINE NEG (NEG); BLOOD, URINE MOD (NEG); GLUCOSE,URINE NEG (NEG); KETONE, URINE NEG (NEG); NITRITE,URINE NEG (NEG); URINE COLOR YELLOW (YELLW/STRAW); URINE LEUKOCYTE ESTERASE MOD (NEG)
--- NOTE | 2017-09-10 05:51 | PD ---
HPI Chief Complaint: Complaint Time Seen by Provider: 04:29 Travel History International Travel<30 days: No Contact w/Intl Traveler<30days: No Traveled to known affect area: No History of Present Illness HPI The patient is a 37 year old male who presents to the [facility] emergency department with a history of reportedly feeling unwell since yesterday. The patient reports that he began to have dysuria, low back pain, urinary frequency , and urgency since yesterday. The patient reports that he is also had constipation for the last few days. He cannot recall the last time that he actually did move his the patient reports that he does have a history of polysubstance abuse specifically with heroin and cocaine. He last used yesterday morning. The patient denies having any penile discharge. He denies any prior history of kidney stone. He denies being sexually active for the last year. He denies having any testicle pain or swelling. On review of systems otherwise, the patient was not aware that he had any fevers prior to arrival, however he had a fever with a T-max of 102 on arrival. He denies having any worsening cough or congestion, however he does report having a smoker 's cough, neck pain, chest pain, shortness of breath, diarrhea, or neurologic symptoms. The patient reports that he has had nausea and vomiting 2 today. [facility] Past Medical History Narrative Medical The patient's past medical history is significant for IV drug use, polysubstance abuse. Arthritis: No Asthma: No Autoimmune Disease: No Blood Disorders: No Bipolar Disorder: Yes Anxiety: No Depression: No Heart Rhythm Problems: No Cancer: No Cardiovascular Problems: No High Cholesterol: No Chemotherapy: No Chest Pain: No Congestive Heart Failure: No COPD: No Cerebrovascular Accident: No Diabetes: No Diminished Hearing: No Endocrine: No Gastrointestinal Disorders: No GERD: No Glaucoma: No Genitourinary: No Headaches: No Hepatitis: No Hiatal Hernia: No Hypertension: No Kidney Stones: No Musculoskeletal: No Neurologic: No Psychiatric: No Reproductive: No Respiratory: No Myocardial Infarction: No Radiation Therapy: No Renal Failure: No Seizures: No Sickle Cell Disease: No Sleep Apnea: No Thyroid Disease: No Ulcer: No Tetanus Vaccination: < 5 Years Influenza Vaccination: No Past Surgical History Narrative Surgical The patient's past surgical history is significant for a tonsillectomy. Abdominal Surgery: No AICD: No Cardiac Surgery: No Ear Surgery: No Endocrine Surgery: No Eye Surgery: No Genitourinary Surgery: No Gynecologic Surgery: No Insulin Pump: No Neurologic Surgery: No Oral Surgery: Yes (TONSILLECTOMY) Pacemaker: No Thoracic Surgery: No Tonsillectomy: Yes Other Surgery: Yes Social History Alcohol Use: No Tobacco Use: Yes (1 ppd) Substance Use: Yes (heroin, cocaine) Allergies-Medications (Allergen,Severity, Reaction): Coded Allergies: No Known Allergies (Verified Adverse Reaction, Unknown, 09/10/17) Reported Meds & Prescriptions Reported Meds & Active Scripts Active No Active Prescriptions or Reported Medications Review of Systems Except as stated in HPI: all other systems reviewed are Neg General / Constitutional: No: Fever Eyes: No: Visual changes HENT: No: Headaches Cardiovascular: No: Chest Pain or Discomfort Respiratory: No: Shortness of Breath Gastrointestinal: Positive: Nausea, Vomiting, Abdominal Pain, Constipation, Changes in Bowel Habits, No: Diarrhea, Hematemesis, Hematochezia, Indigestion, Loss of Appetite Genitourinary: Positive: Urgency, Frequency, Dysuria, Decreased Urinary Output , Hesitancy, Dribbling Musculoskeletal: Positive: Myalgias, No: Pain Skin: No Rash Neurologic: No: Weakness, Focal Abnormalities, Change in Mentation, Slurred Speech, Sensory Disturbance Psychiatric: No: Depression Endocrine: No: Polydipsia Hematologic/Lymphatic: No: Easy Bruising Physical Exam Narrative General: The patient is a well-developed well-nourished male in no acute distress. Head and Neck exam: Head is normocephalic atraumatic. Eyes: EOMI, pupils are equal round and reactive to light. Nose: Midline septum with pink mucous membranes Mouth: Dentition unremarkable. Moist mucus membranes. Posterior oropharynx is not erythematous. No tonsillar hypertrophy. Uvula midline. Airway patent. Neck: No palpable lymphadenopathy. No nuchal rigidity. No thyromegaly. Cardiovascular: Regular rate and rhythm without murmurs, gallops, or rubs. No pulse deficit to the extremities on simultaneous auscultation and palpation of his radial artery. Lungs: Clear to auscultation bilaterally. No wheezes, rhonchi, or rales. Abdomen: Soft, with tenderness reported on palpation of all 4 quadrants of the abdomen, no point tenderness specifically on palpation of her McBurney's point. Decreased bowel sounds are audible. No guarding, rebound, or rigidity. Negative Gongora sign. Extremities: No clubbing, cyanosis, or edema. 2+ pulses in all 4 extremities. No calf tenderness on palpation. Back: No spinous process tenderness to palpation. No spinous process tenderness to palpation. No erythema or ecchymosis. The patient reports having bilateral CVA tenderness on palpation. Neurologic Exam: Grossly nonfocal. Skin Exam: The patient has track lyman noted on his upper extremities. Intact skin that is warm and dry. Data Data Last Documented VS Vital Signs Date Time Temp Pulse Resp B/P (MAP) Pulse Ox O2 Delivery O2 Flow Rate FiO2 09/10/17 06:31 68 18 136/70 (92) 98 Room Air 09/10/17 05:27 101.5 Orders Orders Electrocardiogram (09/10/17 04:38) Complete Blood Count With Diff (09/10/17 04:38) Comprehensive Metabolic Panel (09/10/17 04:38) Prothrombin Time / Inr (Pt) (09/10/17 04:38) Act Partial Throm Time (Ptt) (09/10/17 04:38) Blood Culture (09/10/17 04:38) C-Reactive Protein (Crp) (09/10/17 04:38) Lipase (09/10/17 04:38) Urinalysis - C+S If Indicated (09/10/17 04:38) Westergren Sedimentation Rate (09/10/17 04:38) Magnesium (Mg) (09/10/17 04:38) Thyroid Stimulating Hormone (09/10/17 04:38) Chest, Single Ap (09/10/17 04:38) Iv Access Insert/Monitor (09/10/17 04:38) Ecg Monitoring (09/10/17 04:38) Oximetry (09/10/17 04:38) Drug Screen, Random Urine (09/10/17 04:38) Alcohol (Ethanol) (09/10/17 04:38) Lactic Acid Sepsis Protocol (09/10/17 04:38) Sodium Chlor 0.9% 1000 Ml Inj (Ns 1000 M (09/10/17 04:45) Prochlorperazine Inj (Compazine Inj) (09/10/17 04:45) Piperacil-Tazo 3.375 Gm Premix (Zosyn 3. (09/10/17 04:45) Vancomycin Inj (Vancomycin Inj) (09/10/17 04:45) Ct Abd/Pel W Iv Contrast(Rout) (09/10/17 05:15) Ct Lumb Spine W Iv Contrast (09/10/17 05:15) Labs Laboratory Tests Test 09/10/17 05:11 09/10/17 05:28 Urine Color YELLOW Urine Turbidity HAZY Urine pH 7.0 Urine Specific [place] 1.032 Urine Protein 300 mg/dL Urine Glucose (UA) NEG mg/dL Urine Ketones NEG mg/dL Urine Occult Blood MOD Urine Nitrite NEG Urine Bilirubin NEG Urine Urobilinogen 2.0 MG/DL Urine Leukocyte Esterase MOD Urine RBC 110 /hpf Urine WBC 106 /hpf Microscopic Urinalysis Comment CULT NOT INDICATED Urine Opiates Screen POS Urine Barbiturates Screen NEG Urine Amphetamines Screen NEG Urine Benzodiazepines Screen NEG Urine Cocaine Screen POS Urine Cannabinoids Screen POS White Blood Count 14.6 TH/MM3 Red Blood Count 4.90 MIL/MM3 Hemoglobin 13.2 GM/DL Hematocrit 40.1 % Mean Corpuscular Volume 81.7 FL Mean Corpuscular Hemoglobin 26.9 PG Mean Corpuscular Hemoglobin Concent 33.0 % Red Cell Distribution Width 13.9 % Platelet Count 243 TH/MM3 Mean Platelet Volume 8.4 FL Neutrophils (%) (Auto) 88.0 % Lymphocytes (%) (Auto) 5.1 % Monocytes (%) (Auto) 6.6 % Eosinophils (%) (Auto) 0.1 % Basophils (%) (Auto) 0.2 % Neutrophils # (Auto) 12.8 TH/MM3 Lymphocytes # (Auto) 0.7 TH/MM3 Monocytes # (Auto) 1.0 TH/MM3 Eosinophils # (Auto) 0.0 TH/MM3 Basophils # (Auto) 0.0 TH/MM3 CBC Comment DIFF FINAL Differential Comment Prothrombin Time 11.1 SEC Prothromb Time International Ratio 1.1 RATIO Activated Partial Thromboplast Time 27.8 SEC Blood Urea Nitrogen 11 MG/DL Creatinine 0.77 MG/DL Random Glucose 133 MG/DL Total Protein 7.2 GM/DL Albumin 3.0 GM/DL Calcium Level 8.5 MG/DL Magnesium Level 1.9 MG/DL Alkaline Phosphatase 86 U/L Aspartate Amino Transf (AST/SGOT) 18 U/L Alanine Aminotransferase (ALT/SGPT) 26 U/L Total Bilirubin 0.3 MG/DL Sodium Level 136 MEQ/L Potassium Level 3.5 MEQ/L Chloride Level 98 MEQ/L Carbon Dioxide Level 29.1 MEQ/L Anion Gap 9 MEQ/L Estimat Glomerular Filtration Rate 114 ML/MIN Lactic Acid Level 0.7 mmol/L C-Reactive Protein 7.43 MG/DL Lipase 47 U/L Thyroid Stimulating Hormone 3rd Gen 0.196 uIU/ML Ethyl Alcohol Level LESS THAN 3 MG/DL MDM Medical Decision Making Medical Screen Exam Complete: Yes Emergency Medical Condition: Yes Medical Record Reviewed: Yes Differential Diagnosis Constipation, versus fecal impaction, versus kidney stone, versus pyelonephritis , versus septic emboli, versus endocarditis Narrative Course During the course of the patient's emergency department visit, the patient's history, examination, and differential diagnosis were reviewed with the patient. The patient was placed on a cardiac specialist with oximetry and frequent blood pressure monitoring. The patient had IV access obtained and blood work sent for analysis. The patient had a EKG done on arrival that shows a sinus rhythm heart rate of 63, QRS duration is 77 melena [address] segment elevation, T waves are inverted in V1. Blood cultures 2 were collected. A lactic acid was sent for analysis. The patient was initially provided normal saline 1 L IV fluid bolus, Tylenol for fever. The patient was started on broad-spectrum antibiotic to include Zosyn and vancomycin. The patient's laboratory studies were reviewed and remarkable for a white count of 14.6, hemoglobin 13.2, platelets 243 with neutrophils 88%, the patient meets sirs criteria with an infection source suspicious for pyelonephritis. CMP is remarkable for a glucose of 133, C-reactive protein is elevated at 7.43, lipase 47, TSH is noted to be low at 0.196 which is been low previously. The patient denies following up regarding this, lactic acid is 0.7. PT 11.1, PTT 27.8. Urinalysis shows 300 protein, moderate occult blood, leukocyte esterase is moderate, RBCs 110, WBCs 106. Radiology studies were reviewed and remarkable for a chest x-ray that shows no evidence of acute cardiopulmonary disease. CT scan of the abdomen and pelvis is pending. The patient's case will be checked out to the oncoming emergency physician to disposition the patient based on the conclusion of his workup. Sepsis Criteria SIRS Criteria (2 or more): Temp > 100.9 or < 96.8, WBC > 36952, < 4000 or > 10 % bands Sepsis Criteria (SIRS+source): Infect source susp/known Criteria Outcome: Meets SIRS criteria, Meets sepsis criteria Diagnosis Primary Impression: Abdominal pain Qualified Codes: R10.84 - Generalized abdominal pain Additional Impressions: SIRS (systemic inflammatory response syndrome) IVDU (intravenous drug user) Admitting Information Admitting Physician Requests: Admit Scripts No Active Prescriptions or Reported Meds Araceli Higginbotham MD Sep 10, 2017 05:51
[2017-09-10 05:56] LABS: AUTOMATED NEUTROPHIL # 12.8 TH/MM3 (1.8-7.7); BASOPHIL % 0.2 % (0.0-2.0); EOSINOPHIL % 0.1 % (0.0-4.0); HEMATOCRIT 40.1 % (39.0-51.0); HEMOGLOBIN 13.2 GM/DL (13.0-17.0); LYMPH % 5.1 % (9.0-44.0); LYMPHOCYTE # 0.7 TH/MM3 (1.0-4.8); MEAN CELL VOLUME 81.7 FL (80.0-100.0); MEAN CORPUSCULAR HEMOGLOBIN 26.9 PG (27.0-34.0); MEAN PLATELET VOLUME 8.4 FL (7.0-11.0); MONO % 6.6 % (0.0-8.0); PLATELET COUNT 243 TH/MM3 (150-450); RED CELL DISTRIBUTION WIDTH 13.9 % (11.6-17.2); WHITE BLOOD COUNT 14.6 TH/MM3 (4.0-11.0)
[2017-09-10 06:03] LABS: ALT (GPT) 26 U/L (12-78); AST (GOT) 18 U/L (15-37); BICARBONATE 29.1 MEQ/L (21.0-32.0); BLOOD UREA NITROGEN 11 MG/DL (7-18); CALCIUM 8.5 MG/DL (8.5-10.1); CHLORIDE 98 MEQ/L (98-107); CREATININE 0.77 MG/DL (0.60-1.30); GLOMERULAR FILTRATION RATE 114 ML/MIN (>89); GLUCOSE,RANDOM 133 MG/DL (74-106); MAGNESIUM 1.9 MG/DL (1.5-2.5); SODIUM (NA) 136 MEQ/L (136-145)
[2017-09-10 06:09] LABS: INTERNATIONAL NORMALIZED RATIO 1.1 RATIO; PROTHROMBIN TIME - PATIENT 11.1 SEC (9.8-11.6)
[2017-09-10 06:12] LABS: ALKALINE PHOSPHATASE 86 U/L (45-117); C-REACTIVE PROTEIN 7.43 MG/DL (0.00-0.30); TOTAL BILIRUBIN ADULT 0.3 MG/DL (0.2-1.0); TOTAL PROTEIN 7.2 GM/DL (6.4-8.2)
[2017-09-10] MEDS ORDERED: METOCLOPRAMIDE HCL 10 MG/2 ML VIAL IV PUSH ONE (07:00)
--- NOTE | 2017-09-10 07:27 | PD ---
Physical Exam Narrative Patient was seen by ED physician and signed out to me. Data Data Last Documented VS Vital Signs Date Time Temp Pulse Resp B/P (MAP) Pulse Ox O2 Delivery O2 Flow Rate FiO2 09/10/17 07:20 66 18 136/74 (94) 98 Room Air 09/10/17 05:27 101.5 Orders Orders Electrocardiogram (09/10/17 04:38) Complete Blood Count With Diff (09/10/17 04:38) Comprehensive Metabolic Panel (09/10/17 04:38) Prothrombin Time / Inr (Pt) (09/10/17 04:38) Act Partial Throm Time (Ptt) (09/10/17 04:38) Blood Culture (09/10/17 04:38) C-Reactive Protein (Crp) (09/10/17 04:38) Lipase (09/10/17 04:38) Urinalysis - C+S If Indicated (09/10/17 04:38) Westergren Sedimentation Rate (09/10/17 04:38) Magnesium (Mg) (09/10/17 04:38) Thyroid Stimulating Hormone (09/10/17 04:38) Chest, Single Ap (09/10/17 04:38) Iv Access Insert/Monitor (09/10/17 04:38) Ecg Monitoring (09/10/17 04:38) Oximetry (09/10/17 04:38) Drug Screen, Random Urine (09/10/17 04:38) Alcohol (Ethanol) (09/10/17 04:38) Lactic Acid Sepsis Protocol (09/10/17 04:38) Sodium Chlor 0.9% 1000 Ml Inj (Ns 1000 M (09/10/17 04:45) Prochlorperazine Inj (Compazine Inj) (09/10/17 04:45) Piperacil-Tazo 3.375 Gm Premix (Zosyn 3. (09/10/17 04:45) Vancomycin Inj (Vancomycin Inj) (09/10/17 04:45) Ct Abd/Pel W Iv Contrast(Rout) (09/10/17 05:15) Ct Lumb Spine W Iv Contrast (09/10/17 05:15) Urine Culture (09/10/17 06:48) Metoclopramide Inj (Reglan Inj) (09/10/17 07:00) Iohexol 350 Inj (Omnipaque 350 Inj) (09/10/17 07:58) Labs Laboratory Tests Test 09/10/17 05:11 09/10/17 05:28 Urine Color YELLOW Urine Turbidity HAZY Urine pH 7.0 Urine Specific [place] 1.032 Urine Protein 300 mg/dL Urine Glucose (UA) NEG mg/dL Urine Ketones NEG mg/dL Urine Occult Blood MOD Urine Nitrite NEG Urine Bilirubin NEG Urine Urobilinogen 2.0 MG/DL Urine Leukocyte Esterase MOD Urine RBC 110 /hpf Urine WBC 106 /hpf Microscopic Urinalysis Comment CULT NOT INDICATED Urine Opiates Screen POS Urine Barbiturates Screen NEG Urine Amphetamines Screen NEG Urine Benzodiazepines Screen NEG Urine Cocaine Screen POS Urine Cannabinoids Screen POS White Blood Count 14.6 TH/MM3 Red Blood Count 4.90 MIL/MM3 Hemoglobin 13.2 GM/DL Hematocrit 40.1 % Mean Corpuscular Volume 81.7 FL Mean Corpuscular Hemoglobin 26.9 PG Mean Corpuscular Hemoglobin Concent 33.0 % Red Cell Distribution Width 13.9 % Platelet Count 243 TH/MM3 Mean Platelet Volume 8.4 FL Neutrophils (%) (Auto) 88.0 % Lymphocytes (%) (Auto) 5.1 % Monocytes (%) (Auto) 6.6 % Eosinophils (%) (Auto) 0.1 % Basophils (%) (Auto) 0.2 % Neutrophils # (Auto) 12.8 TH/MM3 Lymphocytes # (Auto) 0.7 TH/MM3 Monocytes # (Auto) 1.0 TH/MM3 Eosinophils # (Auto) 0.0 TH/MM3 Basophils # (Auto) 0.0 TH/MM3 CBC Comment DIFF FINAL Differential Comment Erythrocyte Sedimentation Rate 42 mm/hr Prothrombin Time 11.1 SEC Prothromb Time International Ratio 1.1 RATIO Activated Partial Thromboplast Time 27.8 SEC Blood Urea Nitrogen 11 MG/DL Creatinine 0.77 MG/DL Random Glucose 133 MG/DL Total Protein 7.2 GM/DL Albumin 3.0 GM/DL Calcium Level 8.5 MG/DL Magnesium Level 1.9 MG/DL Alkaline Phosphatase 86 U/L Aspartate Amino Transf (AST/SGOT) 18 U/L Alanine Aminotransferase (ALT/SGPT) 26 U/L Total Bilirubin 0.3 MG/DL Sodium Level 136 MEQ/L Potassium Level 3.5 MEQ/L Chloride Level 98 MEQ/L Carbon Dioxide Level 29.1 MEQ/L Anion Gap 9 MEQ/L Estimat Glomerular Filtration Rate 114 ML/MIN Lactic Acid Level 0.7 mmol/L C-Reactive Protein 7.43 MG/DL Lipase 47 U/L Thyroid Stimulating Hormone 3rd Gen 0.196 uIU/ML Ethyl Alcohol Level LESS THAN 3 MG/DL [facility] Supervised Visit with JELLY: No Interpretation(s) 7:30 AM. CBC WBC 14.6. 88 neutrophil. CMP within normal limits. Lactic acid 0.7. C-reactive protein 7.43. TSH 0.196. Urine drug screen positive opiates, cocaine, cannabis. Alcohol negative. UA positive for WBC and RBC. 8:36 AM. Last Impressions Lumbar Spine CT 09/10/17514 Signed Impressions: CONCLUSION: 1. No acute findings on lumbar spine CT. Abdomen/Pelvis CT 09/10/17514 Signed Impressions: CONCLUSION: 1. The examination demonstrates free fluid within the low pelvis as well as ed ematous changes within the seminal vesicles and areas of low attenuation within the prostate. Prostatitis with possible prostate abscess would be a considerat ion 2. No free air free fluid identified. 3. Moderate amount of stool within the colon. No findings to indicate a bowel obstruction. 4. Incidental 2.6 cm simple cyst along the anterior margin of the spleen. Chest X-Ray 09/10/17 4433 Signed Impressions: CONCLUSION: No acute cardiopulmonary disease identified. Narrative Course Patient was given IV fluids, vancomycin IV and Zosyn IV. Diagnosis Primary Impression: Abdominal pain Qualified Codes: R10.84 - Generalized abdominal pain Additional Impressions: IVDU (intravenous drug user) SIRS (systemic inflammatory response syndrome) Prostatitis Qualified Codes: N41.0 - Acute prostatitis Admitting Information Admitting Physician Requests: Admit Scripts No Active Prescriptions or Reported Meds Jack Celeste MD Sep 10, 2017 07:27
[2017-09-10] MEDS ORDERED: IOHEXOL 350 MG/ML 10 ML VIAL (for RAD DIAG) IVCONTRAST ONE (07:58)
--- NOTE | 2017-09-10 08:14 | RADRPT ---
EXAM DATE: 09/10/2017 7:59 AM EDT AGE/SEX: 37 years / Male INDICATIONS: Lower back pain. CLINICAL DATA: This is the patient's initial encounter. Patient reports that signs and symptoms have been present for 1 day and indicates a pain score of 4/10. MEDICAL/SURGICAL HISTORY: None. None. RADIATION DOSE: . CTDI (mGy) ; Reconstructed from previous dataset, no dose COMPARISON: No prior exams available for comparison. TECHNIQUE: Contiguous axial images were acquired with a multirow detector CT scanner after intraveno us administration of 94 ml Omnipaque 350 (iohexol) nonionic water-soluble contrast as a single exam dose. Multiplanar reconstructions in the sagittal and coronal plane were also performed. Using autom ated exposure control and adjustment of the mA and/or kV according to patient size, radiation dose wa s kept as low as reasonably achievable to obtain optimal diagnostic quality images. FINDINGS: No acute fracture or spondylolisthesis. No significant canal stenosis. No foraminal stenosis identifi ed. Early changes of degenerative disc disease at L1-2. CONCLUSION: 1. No acute findings on lumbar spine CT. Electronically signed by: Cruz Levi MD 09/10/2017 8:12 AM EDT
--- NOTE | 2017-09-10 08:24 | RADRPT ---
EXAM DATE: 09/10/2017 7:50 AM EDT AGE/SEX: 37 years / Male INDICATIONS: Generalized abdominal pain. CLINICAL DATA: This is the patient's initial encounter. Patient reports that signs and symptoms have been present for 1 day and indicates a pain score of 4/10. MEDICAL/SURGICAL HISTORY: None. None. ORAL CONTRAST: No oral contrast ingested. RADIATION DOSE: 4.74 CTDI (mGy) ; Combined studies COMPARISON: No prior exams available for comparison. TECHNIQUE: Multiple contiguous axial images were obtained through the abdomen and pelvis following b olus infusion of 94 ml Omnipaque 350 (iohexol) nonionic water-soluble contrast as a single exam dos e. No oral contrast ingested. Using automated exposure control and adjustment of the mA and/or kV ac cording to patient size, the radiation dose was kept as low as reasonably achievable to obtain optima l diagnostic quality images. FINDINGS: The limited portion of lung base visualized is clear. Imaging through the abdomen demonstrates a 2.6 cm cyst along the anterior aspect of the spleen. The l iver, pancreas, adrenal glands and kidneys are within normal limits. The abdominal aorta is normal in caliber. There is no retroperitoneal lymphadenopathy. No free intraperitoneal air or free intraperitoneal fluid is identified. There is stool diffusely throughout the colon suggesting possible constipation. There are no findings to indicate a bowel obstruction. There is a minimal amount of free fluid within the low pelvis. No iliac or inguinal adenopathy is see n. The examination demonstrates 2 areas of low attenuation within the prostate. The exam would be con cerning for possible prostatitis or prostate abscess. There are edematous changes within the seminal vesicles. The visualized bony structures are grossly intact. CONCLUSION: 1. The examination demonstrates free fluid within the low pelvis as well as edematous changes within the seminal vesicles and areas of low attenuation within the prostate. Prostatitis with possible pro state abscess would be a consideration 2. No free air free fluid identified. 3. Moderate amount of stool within the colon. No findings to indicate a bowel obstruction. 4. Incidental 2.6 cm simple cyst along the anterior margin of the spleen. Electronically signed by: Lauri Moore MD 09/10/2017 8:23 AM EDT
--- NOTE | 2017-09-10 09:59 | HHI.HP ---
[facility] Service Family Medicine Primary Care Physician No Primary Care Physician Admission Diagnosis Sepsis. Acute prostatitis. Diagnoses: International Travel<30 Days: No Contact w/Intl Traveler<30days: No Known Affected Area: No History of Present Illness Mr. Hayes is a 37-year-old male presenting to the ED with dysuria and flank pain. Patient states that he has not urinated in over 2 days prior to being seen in the ED. He states that once he arrived to the ED he was able to urinate "a very small amount with white chunks." He states the pain while trying to urinate it was a 10/10 and very sharp in nature. He states the pain is focally located in his groin/testicles, but does endorse pain starting at his bilateral flanks radiating to his pelvis. He states that his pain is only better with sleep and is exacerbated by attempting to urinate. He denies having any blood in his urine or any penile discharge at this time. He states his testicles are not swollen, but are painful to the touch. He endorses subjective fevers prior to being seen in the ED. His only other complaint is constipation for the last 2 days, but he states that he did have a bowel movement this morning that was "very dark brown or black." Of note, the patient admits to being a routine IV drug user and has recently used IV heroin and smoked cocaine in the last 24 hours. Per chart review, patient was admitted for cellulitis and found to have an echocardiogram with vegetation concerning for possible endocarditis. During that admission, his blood cultures remained negative and patient was treated with Doxycycline at discharge. (Tod Patel MD R2) Review of Systems Constitutional: COMPLAINS OF: Fatigue, Fever, Chills Eyes: COMPLAINS OF: Blurred vision, DENIES: Double Vision Ears, nose, mouth, throat: COMPLAINS OF: Running Nose, DENIES: Throat pain Respiratory: COMPLAINS OF: Cough, Sputum production (Green), DENIES: Shortness of breath Cardiovascular: DENIES: Chest pain, Syncope Gastrointestinal: COMPLAINS OF: Abdominal pain, Constipation, DENIES: Black stools, Bloody stools, Diarrhea, Nausea, Vomiting Genitourinary: COMPLAINS OF: Urgency, Dysuria, Testicular Pain, DENIES: Urinary incontinence, Hematuria, Penile Discharge, Testicular Swelling Musculoskeletal: COMPLAINS OF: Joint pain, Muscle aches Integumentary: DENIES: Rash Hematologic/lymphatic: DENIES: Lymphadenopathy Immunologic/allergic: DENIES: Urticaria Neurologic: DENIES: Headache Psychiatric: DENIES: Confusion, Hallucinations (Tod Patel MD R2) Past Family Social History Past Medical History No history reported Past Surgical History Tonsillectomy (Tod Patel MD R2) Allergies: Coded Allergies: No Known Allergies (Verified Adverse Reaction, Unknown, 09/10/17) Family History Father - from drug abuse Mother - from [place], 52 years old Sister - Healthy Social History Homeless currently. Tobacco - 1ppd for 20 years; no desire to quit Alcohol - No reported history Illicit - Heroin last used yesterday by injection in his R arm; Cocaine yesterday by smoking; Marijuana occasionally (Tod Patel MD R2) Physical Exam Vital Signs Vital Signs Date Time Temp Pulse Resp B/P (MAP) Pulse Ox O2 Delivery O2 Flow Rate FiO2 09/10/17 07:20 66 18 136/74 (94) 98 Room Air 09/10/17 06:31 68 18 136/70 (92) 98 Room Air 09/10/17 05:30 18 96 Room Air 09/10/17 05:27 101.5 65 18 157/83 (107) 96 Room Air 09/10/17 04:25 102.0 74 18 151/111 (124) 97 Physical Exam GENERAL: Disheveled, thin appearing male pacing in room appearing in mild distress due to pelvic pain. SKIN: Warm and moist. No rash. Multiple tattoos on body. Hyperpigmented. No Osler nodes, Janeway lesions, or splinter hemorrhages appreciated. HEENT: Atraumatic, normocephalic with extraocular motions intact. Pupils fixed and not responding to light stimulus. No rhinorrhea. Oropharynx clear without erythema or exudate. No LAD, JVD, or thyroid abnormality appreciated. CARDIOVASCULAR: Regular rate and rhythm without obvious murmurs, gallops, or rubs. 2+ pulses in all four extremities. RESPIRATORY: Prolonged expiratory phase with chronic cough throughout exam. Cough produces white mucus. Mild expiratory wheezes appreciated. No increased work of breathing at this time. GASTROINTESTINAL: Abdomen soft, non-tender, nondistended with positive bowel sounds. No masses appreciated. UROGENITAL: Circumcised penis inspected without lesions or discharge appreciated. Bilateral testicles palpated without masses, but tender to palpation bilaterally. Bilateral inguinal lymphadenopathy appreciated. RECTAL: Prostate palpated and boggy to the touch, patient exquisitely tender to palpation. Hemoccult negative. Sphincter tone intact. MUSCULOSKELETAL: No cyanosis or edema. No calf tenderness. Ambulating well without assistance NEURO/PSYCH: Afocal. Awake, alert, and oriented x3. Normal speech and judgement. Laboratory Laboratory Tests Test 09/10/17 05:11 09/10/17 05:28 Urine Color YELLOW Urine Turbidity HAZY Urine pH 7.0 Urine Specific Jolon 1.032 Urine Protein 300 Urine Glucose (UA) NEG Urine Ketones NEG Urine Occult Blood MOD Urine Nitrite NEG Urine Bilirubin NEG Urine Urobilinogen 2.0 Urine Leukocyte Esterase MOD Urine RBC 110 Urine WBC 106 Microscopic Urinalysis Comment CULT NOT INDICATED Urine Opiates Screen POS Urine Barbiturates Screen NEG Urine Amphetamines Screen NEG Urine Benzodiazepines Screen NEG Urine Cocaine Screen POS Urine Cannabinoids Screen POS White Blood Count 14.6 Red Blood Count 4.90 Hemoglobin 13.2 Hematocrit 40.1 Mean Corpuscular Volume 81.7 Mean Corpuscular Hemoglobin 26.9 Mean Corpuscular Hemoglobin Concent 33.0 Red Cell Distribution Width 13.9 Platelet Count 243 Mean Platelet Volume 8.4 Neutrophils (%) (Auto) 88.0 Lymphocytes (%) (Auto) 5.1 Monocytes (%) (Auto) 6.6 Eosinophils (%) (Auto) 0.1 Basophils (%) (Auto) 0.2 Neutrophils # (Auto) 12.8 Lymphocytes # (Auto) 0.7 Monocytes # (Auto) 1.0 Eosinophils # (Auto) 0.0 Basophils # (Auto) 0.0 CBC Comment DIFF FINAL Differential Comment Erythrocyte Sedimentation Rate 42 Prothrombin Time 11.1 Prothromb Time International Ratio 1.1 Activated Partial Thromboplast Time 27.8 Blood Urea Nitrogen 11 Creatinine 0.77 Random Glucose 133 Total Protein 7.2 Albumin 3.0 Calcium Level 8.5 Magnesium Level 1.9 Alkaline Phosphatase 86 Aspartate Amino Transf (AST/SGOT) 18 Alanine Aminotransferase (ALT/SGPT) 26 Total Bilirubin 0.3 Sodium Level 136 Potassium Level 3.5 Chloride Level 98 Carbon Dioxide Level 29.1 Anion Gap 9 Estimat Glomerular Filtration Rate 114 Lactic Acid Level 0.7 C-Reactive Protein 7.43 Lipase 47 Thyroid Stimulating Hormone 3rd Gen 0.196 Ethyl Alcohol Level LESS THAN 3 Date/Time Source Procedure Growth Status 09/10/17 05:28 Blood Peripheral Aerobic Blood Culture Pending Received 09/10/17 05:28 Blood Peripheral Anaerobic Blood Culture Pending Received 09/10/17 05:11 Urine Clean Catch Urine Culture Pending Received (Tod Patel MD R2) Result Diagram: 09/10/1728 09/10/17527 Imaging Last 72 hours Impressions Lumbar Spine CT 09/10/17514 Signed Impressions: CONCLUSION: 1. No acute findings on lumbar spine CT. Abdomen/Pelvis CT 09/10/17514 Signed Impressions: CONCLUSION: 1. The examination demonstrates free fluid within the low pelvis as well as ed ematous changes within the seminal vesicles and areas of low attenuation within the prostate. Prostatitis with possible prostate abscess would be a considerat ion 2. No free air free fluid identified. 3. Moderate amount of stool within the colon. No findings to indicate a bowel obstruction. 4. Incidental 2.6 cm simple cyst along the anterior margin of the spleen. Chest X-Ray 09/10/17 0438 Signed Impressions: CONCLUSION: No acute cardiopulmonary disease identified. (Tod Patel MD R2) Caprini VTE Risk Assessment Caprini VTE Risk Assessment: Mod/High Risk (score >= 2) Caprini Risk Assessment Model Point Value = 1 Point Value = 2 Point Value = 3 Point Value = 5 Age 41-60 Minor surgery BMI > 25 kg/m2 Swollen legs Varicose veins or History of unexplained or recurrent spontaneous Oral contraceptives or hormone replacement Sepsis (< 1 month) Serious lung disease, including pneumonia (< 1 month) Abnormal pulmonary function Acute myocardial infarction Congestive heart failure (< 1 month) History of inflammatory bowel disease Medical patient at bed rest Age 61-74 Arthroscopic surgery Major open surgery (> 45 min) Laparoscopic surgery (> 45 min) Malignancy Confined to bed (> 72 hours) Immobilizing plaster cast Central venous access Age >= 75 History of VTE Family history of VTE Factor V Leiden Prothrombin [id number] Lupus anticoagulant Anticardiolipin antibodies Elevated serum homocysteine Heparin-induced thrombocytopenia Other congenital or acquired thrombophilia Stroke (< 1 month) Elective arthroplasty Hip, pelvis, or leg fracture Acute spinal cord injury (< 1 month) Prophylaxis Regimen Total Risk Factor Score Risk Level Prophylaxis Regimen 0-1 Low Early ambulation 2 Moderate Order ONE of the following: *Sequential Compression Device (SCD) *Heparin 5000 units SQ BID 3-4 Higher Order ONE of the following medications: *Heparin 5000 units SQ TID *Enoxaparin/Lovenox 40 mg SQ daily (WT < 150 kg, CrCl > 30 mL/min) *Enoxaparin/Lovenox 30 mg SQ daily (WT < 150 kg, CrCl > 10-29 mL/min) *Enoxaparin/Lovenox 30 mg SQ BID (WT < 150 kg, CrCl > 30 mL/min) AND/OR *Sequential Compression Device (SCD) 5 or more Highest Order ONE of the following medications: *Heparin 5000 units SQ TID (Preferred with Epidurals) *Enoxaparin/Lovenox 40 mg SQ daily (WT < 150 kg, CrCl > 30 mL/min) *Enoxaparin/Lovenox 30 mg SQ daily (WT < 150 kg, CrCl > 10-29 mL/min) *Enoxaparin/Lovenox 30 mg SQ BID (WT < 150 kg, CrCl > 30 mL/min) AND *Sequential Compression Device (SCD) (Tod Patel MD R2) Assessment and Plan Assessment and Plan Mr. Hayes is a 37-year-old male presenting with dysuria and flank pain found to have acute prostatitis. Code Status DNR Discussed Condition With Dr. Celeste, ED physician (Tod Patel MD R2) Problem List: (1) Sepsis ICD Codes: A41.9 - Sepsis, unspecified organism Status: Resolved Plan: Patient presenting meeting sepsis criteria with 102 fever and WBC of 14.6. Likely source of infection is UTI versus prostatitis. Lactic acid 0.7. (2) Prostatitis ICD Codes: N41.9 - Inflammatory disease of prostate, unspecified Status: Acute Plan: -Abdomen pelvis CT: Free fluid within the low pelvis as well as edematous changes within the seminal vesicles and areas of a low attenuation within the prostate. Prostatitis with possible prostate abscess would be a consideration. No free air identified. Moderate amount of stool within the colon without bowel obstruction. Incidental 2.6 cm simple cyst along the anterior margin of the spleen. -Lumbar CT: No acute findings. -CBC: WBC 14.6 with 88% neutrophils -ESR: 42 -CRP: 7.43 -Gonorrhea and Chlamydia PCR: Ordered -Blood cultures: pending -Urology consulted, appreciate recommendations Medications: -Patient received vancomycin and Zosyn once in the ED -Rocephin 1 g daily with azithromycin 1 g order to cover for gonorrhea/chlamydia -Toradol as needed for pain -Tylenol as needed for fever (3) UTI (urinary tract infection) ICD Codes: N39.0 - Urinary tract infection, site not specified Status: Acute Plan: -UA: Hazy, 300 protein, moderate occult blood, moderate leukocyte esterase, 110 RBC, 106 WBC -Urine culture pending Medications: -Covered with ceftriaxone 1 g daily (4) COPD exacerbation ICD Codes: J44.1 - Chronic obstructive pulmonary disease with (acute) exacerbation Status: Acute Plan: -Patient with extensive smoking history reporting intermittent shortness of breath and productive cough -Sputum cultures: Pending -Influenza: Pending -Incentive spirometry -Acapella -Respiratory CPT Medications: -Ceftriaxone 1 g daily with azithromycin taper -DuoNeb breathing treatments every 6 hours -Albuterol breathing treatments every 2 hours as needed for shortness of breath -Tessalon Perles 200 mg as needed for cough (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 Plan: -Patient with history of cardiac vegetation on echocardiogram per chart review -Repeat echocardiogram ordered -Patient currently with 1 major Hayes criteria (Echo with vegetation) and 2 minor criteria (IVDU and Fever), not meeting definition of endocarditis at this time (6) IVDU (intravenous drug user) ICD Codes: F19.90 - Other psychoactive substance use, unspecified, uncomplicated Status: Chronic Plan: -Heroin and cocaine use within the last 24 hours -Monitor for signs of withdrawal -Avoid beta-blockers due to cocaine use -Patient agreeable to HIV and hepatitis screening (reports hepatitis C positive) (7) Tobacco abuse ICD Codes: Z72.0 - Tobacco use Status: Chronic Plan: Medications: -Nicotine patch daily (8) Hepatitis C ICD Codes: B19.20 - Unspecified viral hepatitis C without hepatic coma Status: Acute Plan: -Patient reports history of hepatitis C without treatment -Hepatitis C titers ordered (9) Constipation ICD Codes: K59.00 - Constipation, unspecified Status: Acute Plan: -Hemoccult: Negative Medications: -Constipation protocol in place (10) Nutrition, metabolism, and development symptoms ICD Codes: R63.8 - Other symptoms and signs concerning food and fluid intake Status: Acute Plan: -Diet: Regular as tolerated -Fluids: Normal saline at 110 mL/h -Electrolytes: Within normal limits, continue to monitor -Prophylaxis: Constipation protocol, DuoNeb/albuterol as needed for shortness of breath, Tessalon as needed for cough, Tylenol as needed for fever, Toradol as needed for pain -Physical therapy consulted (11) DVT prophylaxis Status: Acute Plan: -SCDs Medication: -Hold Heparin 5000 units 3 times daily for possible Urologic procedure (Tod Patel MD R2) Problem List: (1) Sepsis ICD Codes: A41.9 - Sepsis, unspecified organism Status: Resolved Plan: Patient presenting meeting sepsis criteria with 102 fever and WBC of 14.6. Likely source of infection is UTI versus prostatitis. Lactic acid 0.7. (2) Prostatitis ICD Codes: N41.9 - Inflammatory disease of prostate, unspecified Status: Acute Plan: -Abdomen pelvis CT: Free fluid within the low pelvis as well as edematous changes within the seminal vesicles and areas of a low attenuation within the prostate. Prostatitis with possible prostate abscess would be a consideration. No free air identified. Moderate amount of stool within the colon without bowel obstruction. Incidental 2.6 cm simple cyst along the anterior margin of the spleen. -Lumbar CT: No acute findings. -CBC: WBC 14.6 with 88% neutrophils -ESR: 42 -CRP: 7.43 -Gonorrhea and Chlamydia PCR: Ordered -Blood cultures: pending -Urology consulted, appreciate recommendations Medications: -Patient received vancomycin and Zosyn once in the ED -Rocephin 1 g daily with azithromycin 1 g order to cover for gonorrhea/chlamydia -Toradol as needed for pain -Tylenol as needed for fever (3) UTI (urinary tract infection) ICD Codes: N39.0 - Urinary tract infection, site not specified Status: Acute Plan: -UA: Hazy, 300 protein, moderate occult blood, moderate leukocyte esterase, 110 RBC, 106 WBC -Urine culture pending Medications: -Covered with ceftriaxone 1 g daily (4) COPD exacerbation ICD Codes: J44.1 - Chronic obstructive pulmonary disease with (acute) exacerbation Status: Acute Plan: -Patient with extensive smoking history reporting intermittent shortness of breath and productive cough -Sputum cultures: Pending -Influenza: Pending -Incentive spirometry -Acapella -Respiratory CPT Medications: -Ceftriaxone 1 g daily with azithromycin taper -DuoNeb breathing treatments every 6 hours -Albuterol breathing treatments every 2 hours as needed for shortness of breath -Tessalon Perles 200 mg as needed for cough (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 Plan: -Patient with history of cardiac vegetation on echocardiogram per chart review -Repeat echocardiogram ordered -Patient currently with 1 major Hayes criteria (Echo with vegetation) and 2 minor criteria (IVDU and Fever), not meeting definition of endocarditis at this time (6) IVDU (intravenous drug user) ICD Codes: F19.90 - Other psychoactive substance use, unspecified, uncomplicated Status: Chronic Plan: -Heroin and cocaine use within the last 24 hours -Monitor for signs of withdrawal -Avoid beta-blockers due to cocaine use -Patient agreeable to HIV and hepatitis screening (reports hepatitis C positive) (7) Tobacco abuse ICD Codes: Z72.0 - Tobacco use Status: Chronic Plan: Medications: -Nicotine patch daily (8) Hepatitis C ICD Codes: B19.20 - Unspecified viral hepatitis C without hepatic coma Status: Acute Plan: -Patient reports history of hepatitis C without treatment -Hepatitis C titers ordered (9) Constipation ICD Codes: K59.00 - Constipation, unspecified Status: Acute Plan: -Hemoccult: Negative Medications: -Constipation protocol in place (10) Nutrition, metabolism, and development symptoms ICD Codes: R63.8 - Other symptoms and signs concerning food and fluid intake Status: Acute Plan: -Diet: Regular as tolerated -Fluids: Normal saline at 110 mL/h -Electrolytes: Within normal limits, continue to monitor -Prophylaxis: Constipation protocol, DuoNeb/albuterol as needed for shortness of breath, Tessalon as needed for cough, Tylenol as needed for fever, Toradol as needed for pain -Physical therapy consulted (11) DVT prophylaxis Status: Acute Plan: -SCDs Medication: -Hold Heparin 5000 units 3 times daily for possible Urologic procedure See the residents documentation for details. I saw and evaluated the patient regarding the cox portions of this evaluation and agree with the residents findings and plans as written. Parts of this note were created using [employer] voice recognition software program. While efforts were made to correct any mistakes made by this software, some mistakes, errors, and omissions may remain in the final note that were not caught when the note was originally created. Plan of care was discussed and agreed upon with the patient as specifically documented in the above note. An opportunity to ask questions with explanation was provided. Patient voiced understanding on all information reviewed and discussed. (Jovanny Anderson MD) Physician Certification 2 Midnight Certification Type: Admission for Inpatient Services Order for Inpatient Services The services are ordered in accordance with Medicare regulations or non- Medicare payer requirements, as applicable. In the case of services not specified as inpatient-only, they are appropriately provided as inpatient services in accordance with the 2-midnight benchmark. Estimated LOS (days): 3 3 days is the estimated time the patient will need to remain in the hospital, assuming treatment plan goals are met and no additional complications. Post-Hospital Plan: Home (Tod Patel MD R2) Problem Qualifiers (1) Sepsis: Qualified Codes: A41.9 - Sepsis, unspecified organism (2) Prostatitis: Qualified Codes: N41.0 - Acute prostatitis (3) UTI (urinary tract infection): Qualified Codes: N30.00 - Acute cystitis without hematuria (4) Hepatitis C: Qualified Codes: B17.10 - Acute hepatitis C without hepatic coma (5) Constipation: Qualified Codes: K59.00 - Constipation, unspecified Tod Patel MD R2 Sep 10, 2017 09:59 Jovanny Anderson MD Sep 12, 2017 11:40
[2017-09-10] MEDS ORDERED: ACETAMINOPHEN 325 MG TAB PO PRN (10:15)
[2017-09-10] MEDS ORDERED: NALOXONE HCL 0.4 MG/ML AMP IV PUSH PRN (10:15)
[2017-09-10] MEDS ORDERED: RESP: ALBUTEROL 2.5 MG/3 ML NEB (PRN) INH (10:15)
[2017-09-10] MEDS ORDERED: KETOROLAC TROMETHAMINE 30 MG/ML (IVP) VIAL IV PUSH PRN (10:15)
[2017-09-10] MEDS ORDERED: AZITHROMYCIN 250 MG TAB PO SCH (10:15)
[2017-09-10] MEDS ORDERED: IBUPROFEN 400 MG TAB PO PRN (10:15)
[2017-09-10] MEDS ORDERED: SODIUM CHLORIDE 0.9% FLUSH 10 ML FLUSH IV FLUSH PRN (10:15)
[2017-09-10] MEDS ORDERED: BISACODYL 10 MG SUPP RECTAL PRN (10:30)
[2017-09-10] MEDS ORDERED: SENNOSIDES 8.6 MG TAB PO PRN (10:30)
[2017-09-10] MEDS ORDERED: MAGNESIUM HYDROXIDE SUSP 30 ML CUP PO PRN (10:30)
[2017-09-10] MEDS: RESP: ALBUTEROL 2.5 MG/IPRATROPIUM 0.5 MG NEB (SCH) INH ×3 (10:56→21:19)
[2017-09-10] MEDS ORDERED: BENZONATATE 100 MG CAP PO PRN (11:00)
[2017-09-10] MEDS ORDERED: HEPARIN SODIUM - SQ 10,000 UNITS/ML VIAL SQ SCH (11:00)
[2017-09-10] MEDS: SODIUM CHLOR 0.9% 1000 ML INJ 1,000 ML IV SCH ×2 (11:24→21:08)
[2017-09-10] MEDS: KETOROLAC TROMETHAMINE 30 MG/ML (IVP) VIAL IV PUSH PRN ×2 (11:24→18:25)
[2017-09-10] MEDS: NICOTINE 14 MG/24 HR PATCH T-DERMAL SCH (11:52)
[2017-09-10] MEDS ORDERED: AZITHROMYCIN 250 MG TAB PO ONE (12:00)
[2017-09-10] MEDS: DOCUSATE SODIUM 50 MG/SENNA 8.6 MG TAB PO SCH ×2 (13:22→21:00)
[2017-09-10] MEDS: cefTRIAXone INJ 1,000 MG in SODIUM CHLORIDE 0.9% INJ 100 ML IV SCH (13:22)
--- NOTE | 2017-09-10 14:16 | EKG ---
Date Performed: 09/10/2017 Time Performed: 04:19:30 PTAGE: 37 years EKG: Sinus rhythm WITH SHORT KS INTERVAL BORDERLINE ECG No significant change from prior electrocardiogram. PREVIOUS TRACING : 10/15/2015 21.32 DOCTOR: Andrew Buchanan Interpretating Date/Time 09/10/2017 14:14:30
--- NOTE | 2017-09-10 17:06 | PD.CONS ---
[facility] Service Urology Consult Requested By Dr. Patel Reason for Consult Possible prostate abscess formation Primary Care Physician No Primary Care Physician Diagnosis: History of Present Illness 37-year-old gentleman with history of IV drug abuse who presented to the emergency room complaining of dysuria and bilateral flank pain. Patient reports that for 2 days prior to presentation to the emergency room he was not producing any urine. While in the emergency room he was able to void a small amount of urine and reports that it contained white chunks. Preliminary workup included a CT scan of the abdomen and pelvis that demonstrated a small amount of free fluid within the pelvis as well as two low-attenuation defects within the prostate consistent with either inflammation or abscess formation. There also edematous changes involving the seminal vesicles as well. Both kidneys appeared normal without evidence of hydronephrosis. Urinalysis demonstrated the presence of blood white cells and moderate leukocyte esterase. Patient was started on intravenous antibiotics and a urology consult placed. At the time of consultation, the patient reported some symptomatic improvement after receiving the antibiotics. He denied a history of trauma. He denied a history of previous problems involving the urinary tract including prostatitis. Review of Systems Constitutional: COMPLAINS OF: Fever, Chills Cardiovascular: DENIES: Chest pain Genitourinary: COMPLAINS OF: Dysuria, DENIES: Hematuria Except as stated in HPI: all other systems reviewed are Neg Past Family Social History Past Medical History Denies significant past medical history Past Surgical History Status post tonsillectomy Reported Medications Refer to EMR Allergies: Coded Allergies: No Known Allergies (Verified Adverse Reaction, Unknown, 09/10/17) Active Ordered Medications Refer to EMR Family History Father from drug abuse Mother from myocardial infarction Social History History intravenous drug abuse History of smoking 1 pack per day 20 years Homeless Physical Exam Vital Signs Date Time Temp Pulse Resp B/P (MAP) Pulse Ox O2 Delivery O2 Flow Rate FiO2 09/10/17 16:12 98.6 50 16 119/58 (78) 99 09/10/17 15:44 97 21 09/10/17 13:36 09/10/17 13:00 98.6 51 16 124/66 (85) 98 09/10/17 12:32 99.2 65 20 99 Room Air 09/10/17 10:57 97 21 09/10/17 10:20 56 18 113/64 (80) 99 Room Air 6/12/18 07:20 66 18 136/74 (94) 98 Room Air 09/10/17 06:31 68 18 136/70 (92) 98 Room Air 09/10/17 05:30 18 96 Room Air 09/10/17 05:27 101.5 65 18 157/83 (107) 96 Room Air 09/10/17 04:25 102.0 74 18 151/111 (124) 97 Physical Exam GENERAL: This is a well-nourished, well-developed patient, in no apparent distress. SKIN: No rashes, ecchymoses or lesions. Cool and dry. HEAD: Atraumatic. Normocephalic. No temporal or scalp tenderness. EYES: Pupils equal round and reactive. Extraocular motions intact. No scleral icterus. No injection or drainage. ENT: Nose without bleeding, purulent drainage or septal hematoma. Throat without erythema, tonsillar hypertrophy or exudate. Uvula midline. Airway patent. NECK: Trachea midline. No JVD or lymphadenopathy. Supple, nontender, no meningeal signs. GASTROINTESTINAL: Abdomen soft, non-tender, nondistended. No hepato-splenomegaly , or palpable masses. No guarding. GENITOURINARY: Tenderness to palpation of suprapubic region, normal phallus without discharge, testes bilaterally descended, bilateral inguinal lymphadenopathy noted. Digital rectal exam performed by ER physician and prostate was noted to be boggy, this was not repeated. MUSCULOSKELETAL: Extremities without clubbing, cyanosis, or edema. No joint tenderness, effusion, or edema noted. No calf tenderness. Negative Homans sign bilaterally. NEUROLOGICAL: Awake and alert. Cranial nerves II through XII intact. Motor and sensory grossly within normal limits. Five out of 5 muscle strength in all muscle groups. Normal speech. Lab results reviewed: Yes Laboratory Tests Test 09/10/17 05:11 09/10/17 05:28 09/10/17 11:54 09/10/17 14:38 Urine Color YELLOW Urine Turbidity HAZY Urine pH 7.0 Urine Specific [place] 1.032 Urine Protein 300 Urine Glucose (UA) NEG Urine Ketones NEG Urine Occult Blood MOD Urine Nitrite NEG Urine Bilirubin NEG Urine Urobilinogen 2.0 Urine Leukocyte Esterase MOD Urine RBC 110 Urine WBC 106 Microscopic Urinalysis Comment CULT NOT INDICATED Urine Opiates Screen POS Urine Barbiturates Screen NEG Urine Amphetamines Screen NEG Urine Benzodiazepines Screen NEG Urine Cocaine Screen POS Urine Cannabinoids Screen POS White Blood Count 14.6 Red Blood Count 4.90 Hemoglobin 13.2 Hematocrit 40.1 Mean Corpuscular Volume 81.7 Mean Corpuscular Hemoglobin 26.9 Mean Corpuscular Hemoglobin Concent 33.0 Red Cell Distribution Width 13.9 Platelet Count 243 Mean Platelet Volume 8.4 Neutrophils (%) (Auto) 88.0 Lymphocytes (%) (Auto) 5.1 Monocytes (%) (Auto) 6.6 Eosinophils (%) (Auto) 0.1 Basophils (%) (Auto) 0.2 Neutrophils # (Auto) 12.8 Lymphocytes # (Auto) 0.7 Monocytes # (Auto) 1.0 Eosinophils # (Auto) 0.0 Basophils # (Auto) 0.0 CBC Comment DIFF FINAL Differential Comment Erythrocyte Sedimentation Rate 42 Prothrombin Time 11.1 Prothromb Time International Ratio 1.1 Activated Partial Thromboplast Time 27.8 Blood Urea Nitrogen 11 Creatinine 0.77 Random Glucose 133 Total Protein 7.2 Albumin 3.0 Calcium Level 8.5 Magnesium Level 1.9 Alkaline Phosphatase 86 Aspartate Amino Transf (AST/SGOT) 18 Alanine Aminotransferase (ALT/SGPT) 26 Total Bilirubin 0.3 Sodium Level 136 Potassium Level 3.5 Chloride Level 98 Carbon Dioxide Level 29.1 Anion Gap 9 Estimat Glomerular Filtration Rate 114 Lactic Acid Level 0.7 C-Reactive Protein 7.43 Lipase 47 Thyroid Stimulating Hormone 3rd Gen 0.196 Ethyl Alcohol Level LESS THAN 3 Hepatitis A IgM Antibody NONREACTIVE Hepatitis B Surface Antigen NONREACTIVE Hepatitis B Core IgM Antibody NONREACTIVE Hepatitis C IgG Antibody REACTIVE HIV (1&2) Ab and P24 Ag, 4th Gener NONREACTIVE Date/Time Source Procedure Growth Status 09/10/17 05:28 Blood Peripheral Aerobic Blood Culture Pending Received 09/10/17 05:28 Blood Peripheral Anaerobic Blood Culture Pending Received 09/10/17 11:35 Nasal Washing Influenza Types A,B Antigen (SIGRID) - Final NEGATIVE FOR FLU A AND B ANTIGEN.... Complete 09/10/17 05:11 Urine Clean Catch Urine Culture Pending Received Result Diagram: 09/10/1752709/10/17527 Personally reviewed images: Yes Imaging Last Impressions Lumbar Spine CT 09/10/17514 Signed Impressions: CONCLUSION: 1. No acute findings on lumbar spine CT. Abdomen/Pelvis CT 09/10/17514 Signed Impressions: CONCLUSION: 1. The examination demonstrates free fluid within the low pelvis as well as ed ematous changes within the seminal vesicles and areas of low attenuation within the prostate. Prostatitis with possible prostate abscess would be a considerat ion 2. No free air free fluid identified. 3. Moderate amount of stool within the colon. No findings to indicate a bowel obstruction. 4. Incidental 2.6 cm simple cyst along the anterior margin of the spleen. Chest X-Ray 09/10/17 0090 Signed Impressions: CONCLUSION: No acute cardiopulmonary disease identified. Assessment and Plan Assessment and Plan UROLOGIC IMPRESSION: Acute Prostatitis with possible abscess formation RECOMMENDATIONS: 1. Agree with present antibiotic therapy 2. Con't with analgesic support 3. Repeat cbc in am. 4. Will follow. Byron Kovacs MD Sep 10, 2017 17:06
[2017-09-10] MEDS: SODIUM CHLORIDE 0.9% FLUSH 10 ML FLUSH IV FLUSH SCH (21:00)
[2017-09-10] MEDS: REMOVE OLD PATCH T-DERMAL SCH ×2 (21:00→21:09)
[2017-09-10] MEDS ORDERED: MORPHINE SULFATE 4 MG/ML INJ IV PUSH PRN (22:45)
[2017-09-11] VITALS (11 sets, daily range): BP systolic 123–147; BP diastolic 72–77; PULSE 46–68; RESP 16–20; TEMP 97.4–98.2; O2SAT 98–100
[2017-09-11] MEDS: KETOROLAC TROMETHAMINE 30 MG/ML (IVP) VIAL IV PUSH PRN ×4 (00:24→17:09)
[2017-09-11] MEDS: RESP: ALBUTEROL 2.5 MG/IPRATROPIUM 0.5 MG NEB (SCH) INH ×4 (03:47→21:42)
[2017-09-11] MEDS: SODIUM CHLOR 0.9% 1000 ML INJ 1,000 ML IV SCH ×3 (05:24→20:53)
[2017-09-11] MEDS ORDERED: MORPHINE SULFATE 4 MG/ML INJ IV PUSH ONE (06:15)
[2017-09-11 06:57] LABS: BICARBONATE 27.5 MEQ/L (21.0-32.0); CALCIUM 8.3 MG/DL (8.5-10.1); CREATININE 0.67 MG/DL (0.60-1.30)
[2017-09-11 07:00] LABS: AUTOMATED NEUTROPHIL # 11.3 TH/MM3 (1.8-7.7); BASOPHIL % 0.2 % (0.0-2.0); EOSINOPHIL # 0.1 TH/MM3 (0-0.4); EOSINOPHIL % 0.5 % (0.0-4.0); HEMATOCRIT 42.7 % (39.0-51.0); HEMOGLOBIN 13.9 GM/DL (13.0-17.0); LYMPH % 7.8 % (9.0-44.0); MEAN CELL VOLUME 82.3 FL (80.0-100.0); MEAN CORPUSCULAR HEMOGLOBIN 26.8 PG (27.0-34.0); MEAN CORPUSCULAR HGB CONC 32.6 % (32.0-36.0); MEAN PLATELET VOLUME 8.6 FL (7.0-11.0); MONOCYTE # 1.1 TH/MM3 (0-0.9); NEUT % 83.5 % (16.0-70.0); PLATELET COUNT 275 TH/MM3 (150-450); RED BLOOD COUNT 5.19 MIL/MM3 (4.50-5.90); RED CELL DISTRIBUTION WIDTH 14.3 % (11.6-17.2); WHITE BLOOD COUNT 13.5 TH/MM3 (4.0-11.0)
[2017-09-11] MEDS: NICOTINE 14 MG/24 HR PATCH T-DERMAL SCH (08:49)
[2017-09-11] MEDS: DOCUSATE SODIUM 50 MG/SENNA 8.6 MG TAB PO SCH ×2 (08:50→20:51)
[2017-09-11] MEDS: SODIUM CHLORIDE 0.9% FLUSH 10 ML FLUSH IV FLUSH SCH ×2 (08:50→20:52)
--- NOTE | 2017-09-11 10:34 | HHI.PR ---
Subjective Patient symptoms today Continues to complain of suprapubic pain and difficulty voiding. Objective Vital Signs Vital Signs Date Time Temp Pulse Resp B/P (MAP) Pulse Ox O2 Delivery O2 Flow Rate FiO2 09/11/17 09:49 100 09/11/17 08:01 98.2 48 16 147/77 (100) 98 09/11/17 04:00 47 09/11/17 04:00 98.0 54 18 143/74 (97) 100 09/11/17 04:00 Room Air 09/11/17 00:00 51 09/11/17 00:00 97.8 50 18 123/72 (89) 99 09/11/17 00:00 Room Air 09/10/17 21:21 94 09/10/17 21:00 Room Air 09/10/17 20:00 51 09/10/17 20:00 99.1 76 18 128/71 (90) 98 09/10/17 16:12 98.6 50 16 119/58 (78) 99 09/10/17 15:44 97 21 09/10/17 13:36 09/10/17 13:00 98.6 51 16 124/66 (85) 98 09/10/17 12:32 99.2 65 20 99 Room Air 09/10/17 10:57 97 21 Intake & Output 09/11/17 09/11/17 07:00 19:00 Intake Total 2240 ml Balance 2240 ml Intake Oral 240 ml IV Total 2000 ml # Voids 2 # Bowel Movements 0 Result Diagram: 09/11/17 0607 09/11/17 0607 Objective Remarks Suprapubic fullness appreciated with associated tenderness Medications and IVs Current Medications Medications (Trade) Dose Ordered Sig/Bandar Route Start Time Stop Time Status Last Admin Sodium Chloride 1,000 ml @ 110 mls/hr Q9H6M IV 09/10/17 11:00 09/11/17 05:24 (NS Flush) 2 ml BID IV FLUSH 09/10/17 21:00 09/11/17 08:50 (NS Flush) 2 ml UNSCH PRN IV FLUSH 09/10/17 10:15 (Duoneb Neb) 1 ampule Q6HR NEB INH 09/10/17 11:00 09/10/17 15:41 (Albuterol Neb) 2.5 mg Q2HR NEB PRN INH 09/10/17 10:15 Ceftriaxone Sodium 1000 mg/ Sodium Chloride 100 ml @ 200 mls/hr Q24H IV 09/10/17 12:00 09/10/17 13:22 (Heparin Inj) 5,000 units Q8H SQ 09/10/17 11:00 Future Hold 09/10/17 11:23 (Tylenol) 650 mg Q6H PRN PO 09/10/17 10:15 (Motrin) 400 mg Q6H PRN PO 09/10/17 10:15 (Toradol Inj) 15 mg Q6H PRN IV PUSH 09/10/17 10:15 09/15/17 10:14 (Toradol Inj) 30 mg Q6H PRN IV PUSH 09/10/17 10:15 09/15/17 10:14 09/11/17 05:25 (Narcan Inj) 0.4 mg UNSCH PRN IV PUSH 09/10/17 10:15 (Habitrol 14 Mg Patch.24 Hr) 1 patch DAILY T-DERMAL 09/10/17 11:00 09/11/17 08:49 Miscellaneous Information 1 HS T-DERMAL 09/10/17 21:00 (Vy-Colace) 1 tab BID PO 09/10/17 10:30 09/11/17 08:50 (Milk Of Magnesia Liq) 30 ml Q12H PRN PO 09/10/17 10:30 (Senokot) 17.2 mg Q12H PRN PO 09/10/17 10:30 (Dulcolax Supp) 10 mg DAILY PRN RECTAL 09/10/17 10:30 (Tessalon) 200 mg TID PRN PO 09/10/17 11:00 (Zithromax) 250 mg Q24H PO 09/11/17 12:00 09/14/17 12:01 (Vistaril) 50 mg HS PRN PO 09/10/17 22:45 09/10/17 23:39 (Morphine Inj) 3 mg Q4H PRN IV PUSH 09/11/17 10:45 UNV (Zofran Inj) 4 mg Q6H PRN IVP 09/11/17 10:30 UNV Assessment and Plan Assessment and Plan UROLOGIC IMPRESSION: 1. Acute Prostatitis with possible abscess formation 2. Urinary retention related to prostatitis RECOMMENDATIONS: 1. Will order a Land[place] catheter to be placed and connected to gravity drainage 2. Continue with present antibiotics 3. Continue with analgesic support . Byron Kovacs MD Sep 11, 2017 10:34
[2017-09-11] MEDS: cefTRIAXone INJ 1,000 MG in SODIUM CHLORIDE 0.9% INJ 100 ML IV SCH (10:59)
[2017-09-11] MEDS: AZITHROMYCIN 250 MG TAB PO SCH (11:01)
[2017-09-11] MEDS: ONDANSETRON ODT 4 MG TAB PO PRN (11:45)
[2017-09-11] MEDS: MORPHINE SULFATE 4 MG/ML INJ IV PUSH PRN ×2 (14:04→20:54)
--- NOTE | 2017-09-11 16:05 | HHI.FPPN ---
Subjective Remarks Patient was seen and evaluated this morning. He complains of worsening pain, located in his mid lower abdomen. He reports nausea and vomiting due to pain severity. He asks for a change in pain medication. Patient denies chest pain, heart palpitations, shortness of breath, diarrhea and constipation. All questions were answered. Of note, following rounds, the patient's sister called the floor and voiced concern that the patient expressed suicidal ideations during a phone conversation with her. (Harriet Ashley MD R1) Objective Vitals Vital Signs Date Time Temp Pulse Resp B/P (MAP) Pulse Ox O2 Delivery O2 Flow Rate FiO2 09/11/17 12:01 97.5 49 16 142/72 (95) 100 09/11/17 09:49 100 09/11/17 08:01 98.2 48 16 147/77 (100) 98 09/11/17 04:00 47 09/11/17 04:00 98.0 54 18 143/74 (97) 100 09/11/17 04:00 Room Air 09/11/17 00:00 51 09/11/17 00:00 97.8 50 18 123/72 (89) 99 09/11/17 00:00 Room Air 09/10/17 21:21 94 09/10/17 21:00 Room Air 09/10/17 20:00 51 09/10/17 20:00 99.1 76 18 128/71 (90) 98 09/10/17 16:12 98.6 50 16 119/58 (78) 99 09/10/17 15:44 97 21 I/O 09/10/17 09/10/17 09/10/17 09/11/17 09/11/17 09/11/17 07:00 15:00 23:00 07:00 15:00 23:00 Intake Total 1050 ml 350 ml 1480 ml 1240 ml Output Total 300 ml Balance 1050 ml 350 ml 1180 ml 1240 ml Intake Oral 480 ml 240 ml IV Total 1050 ml 350 ml 1000 ml 1000 ml Output Urine Total 300 ml # Voids 1 2 # Bowel Movements 0 0 (Harriet Ashley MD R1) Result Diagram: 09/11/17 0607 09/11/17 0607 Imaging Last Impressions Lumbar Spine CT 09/10/17 0515 Signed Impressions: CONCLUSION: 1. No acute findings on lumbar spine CT. Abdomen/Pelvis CT 09/10/17 3637 Signed Impressions: CONCLUSION: 1. The examination demonstrates free fluid within the low pelvis as well as ed ematous changes within the seminal vesicles and areas of low attenuation within the prostate. Prostatitis with possible prostate abscess would be a considerat ion 2. No free air free fluid identified. 3. Moderate amount of stool within the colon. No findings to indicate a bowel obstruction. 4. Incidental 2.6 cm simple cyst along the anterior margin of the spleen. Chest X-Ray 09/10/17 4880 Signed Impressions: CONCLUSION: No acute cardiopulmonary disease identified. Objective Remarks GENERAL: Thin appearing male laying in bed, in obvious distress. SKIN: Warm and dry. No rash. Multiple tattoos on body. Hyperpigmented. No Osler nodes, Janeway lesions, or splinter hemorrhages appreciated. HEENT: Atraumatic, normocephalic with extraocular motions intact. Pupils equal and round. No rhinorrhea. No LAD, JVD appreciated. CARDIOVASCULAR: Regular rate and rhythm without obvious murmurs, gallops, or rubs. RESPIRATORY: No increased work of breathing at this time. Mild expiratory wheezes appreciated. GASTROINTESTINAL: Positive bowel sounds. Abdomen soft, nondistended. Exquisitely tender in lower quadrants. No masses appreciated. MUSCULOSKELETAL: No cyanosis or edema. No calf tenderness. NEURO/PSYCH: Awake, alert, and oriented x3. Normal speech and judgement. Medications and IVs Current Medications Medications (Trade) Dose Ordered Sig/Bandar Route Start Time Stop Time Status Last Admin Sodium Chloride 1,000 ml @ 110 mls/hr Q9H6M IV 09/10/17 11:00 09/11/17 11:02 (NS Flush) 2 ml BID IV FLUSH 09/10/17 21:00 09/11/17 08:50 (NS Flush) 2 ml UNSCH PRN IV FLUSH 09/10/17 10:15 (Duoneb Neb) 1 ampule Q6HR NEB INH 09/10/17 11:00 09/10/17 15:41 (Albuterol Neb) 2.5 mg Q2HR NEB PRN INH 09/10/17 10:15 Ceftriaxone Sodium 1000 mg/ Sodium Chloride 100 ml @ 200 mls/hr Q24H IV 09/10/17 12:00 09/11/17 10:59 (Heparin Inj) 5,000 units Q8H SQ 09/10/17 11:00 Future Hold 09/10/17 11:23 (Tylenol) 650 mg Q6H PRN PO 09/10/17 10:15 (Motrin) 400 mg Q6H PRN PO 09/10/17 10:15 (Toradol Inj) 15 mg Q6H PRN IV PUSH 09/10/17 10:15 09/15/17 10:14 (Toradol Inj) 30 mg Q6H PRN IV PUSH 09/10/17 10:15 09/15/17 10:14 09/11/17 11:02 (Narcan Inj) 0.4 mg UNSCH PRN IV PUSH 09/10/17 10:15 (Habitrol 14 Mg Patch.24 Hr) 1 patch DAILY T-DERMAL 09/10/17 11:00 09/11/17 08:49 Miscellaneous Information 1 HS T-DERMAL 09/10/17 21:00 (Vy-Colace) 1 tab BID PO 09/10/17 10:30 09/11/17 08:50 (Milk Of Magnesia Liq) 30 ml Q12H PRN PO 09/10/17 10:30 09/11/17 15:04 (Senokot) 17.2 mg Q12H PRN PO 09/10/17 10:30 (Dulcolax Supp) 10 mg DAILY PRN RECTAL 09/10/17 10:30 (Tessalon) 200 mg TID PRN PO 09/10/17 11:00 (Zithromax) 250 mg Q24H PO 09/11/17 12:00 09/14/17 12:01 09/11/17 11:01 (Vistaril) 50 mg HS PRN PO 09/10/17 22:45 09/10/17 23:39 (Morphine Inj) 3 mg Q4H PRN IV PUSH 09/11/17 10:45 09/11/17 14:04 (Zofran Odt) 4 mg Q6H PRN PO 09/11/17 11:15 09/11/17 11:45 (Harriet Ashley MD R1) Urinary Catheter: No (Harriet Ashley MD R1) Vascular Central Line Catheter: No (Harriet Ashley MD R1) A/P Assessment and Plan Patient is a 37-year-old male presenting with dysuria and flank pain found to have acute prostatitis. Discharge Planning Pending clinical improvement. (Harriet Ashley MD R1) Problem List: (1) Sepsis ICD Codes: A41.9 - Sepsis, unspecified organism Status: Resolved Plan: On admission, patient met sepsis criteria with 102 fever and WBC of 14.6. Likely source of infection is UTI versus prostatitis. Lactic acid 0.7. Resolved as of 09/10. Labs 09/11: * WBC 13.5 with 83.6% neutrophils. (2) Prostatitis ICD Codes: N41.9 - Inflammatory disease of prostate, unspecified Status: Acute Plan: Patient with dysuria and flank pain. Admission Labs: * WBC 14.6 with 88% neutrophils. * ESR: 42. CRP: 7.43. * Lactic acid: 0.7. * Chlamydia trachomatis not detected. * N. gonorrhoeae not detected. * HIV nonreactive. Labs 09/11: * WBC 13.5. Microbiology: * Blood culture: negative to date. * Urine culture: pending. Imaging: * Abdomen pelvis CT 09/10: Free fluid within the low pelvis as well as edematous changes within the seminal vesicles and areas of a low attenuation within the prostate. Prostatitis with possible prostate abscess would be a consideration. No free air identified. Moderate amount of stool within the colon without bowel obstruction. Incidental 2.6 cm simple cyst along the anterior margin of the spleen. * Lumbar CT 09/10: No acute findings. Consults: * Urology: Agree with present antibiotic therapy. Con't with analgesic support. Repeat cbc in am. Will follow. Orders: * Landers to prevent urinary retention. Medications: * Patient received vancomycin and Zosyn once in the ED. * Azithromycin 250mg PO q24hr. * Ceftriaxone 1g IV q24hr. * Toradol as needed for pain. Morphine for breakthrough pain. (3) UTI (urinary tract infection) ICD Codes: N39.0 - Urinary tract infection, site not specified Status: Acute Plan: On admission, UA: hazy, 300 protein, moderate occult blood, moderate leukocyte esterase, 110 RBC, 106 WBC. Microbiology: Urine culture pending. Medications: * Covered with ceftriaxone 1 g IV daily. (4) COPD exacerbation ICD Codes: J44.1 - Chronic obstructive pulmonary disease with (acute) exacerbation Status: Acute Plan: Patient with extensive smoking history reporting intermittent shortness of breath and productive cough. Microbiology: * Influenza A/B negative. * Sputum cultures: Pending Orders: * Incentive spirometry. * Acapella. * Respiratory CPT. Medications: * Ceftriaxone 1 g IV daily with azithromycin. * DuoNeb 1 ampule q6hrs NEB INH. * Albuterol 2.5mg q2hrs NEB INH PRN for Shortness of Breath. * Tessalon Perles 200 mg PRN for Cough. (5) Suicidal ideation ICD Codes: R45.851 - Suicidal ideations Status: Acute Plan: Patient voiced suicidal ideations to sister, who contacted nursing staff. Patient denies suicidal ideations to physician team and nursing staff. Orders: * Sitter for precaution. Consults: * Psych. Awaiting recommendations. 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 Patient currently with one major Hayes criteria (Echo with vegetation) and two minor criteria (IVDU and Fever), not meeting definition of endocarditis at this time. Studies: * ECHO pending. (7) IVDU (intravenous drug user) ICD Codes: F19.90 - Other psychoactive substance use, unspecified, uncomplicated Status: Chronic Plan: Heroin and cocaine use within the last 24 hours. Avoid beta-blockers due to cocaine use. Monitor for signs of withdrawal. Labs: * UDS: opiate, cocaine and cannabinoid positive. * Hepatitis A IgM Ab nonreactive. * Hepatitis Bs Antigen nonreactive. * Hepatitis B Core IgM Ab nonreactive. * Hepatitis C IgG Ab reactive. * HCV RNA Genotype pending. * HCV RNA PCR pending. * HIV nonreactive. (8) Hepatitis C ICD Codes: B19.20 - Unspecified viral hepatitis C without hepatic coma Status: Acute Plan: Patient reports history of hepatitis C without treatment. * See plan above. (9) Tobacco abuse ICD Codes: Z72.0 - Tobacco use Status: Chronic Plan: Patient with history of tobacco use. Medications: * Nicotine patch daily. (10) Constipation ICD Codes: K59.00 - Constipation, unspecified Status: Acute Plan: Patient with reported constipation. Microbiology: * Hemoccult negative Medications: * Constipation protocol in place. (11) Nutrition, metabolism, and development symptoms ICD Codes: R63.8 - Other symptoms and signs concerning food and fluid intake Status: Acute Plan: Diet: * Regular as tolerated. Fluids: * Normal saline at 110 mL/h. Electrolytes: * Monitor and replete as necessary. (12) DVT prophylaxis Status: Acute Plan: SCDs Held chemical prophylaxis in case of procedure. (Harriet Ashley MD R1) Problem List: (1) Sepsis ICD Codes: A41.9 - Sepsis, unspecified organism Status: Resolved Plan: On admission, patient met sepsis criteria with 102 fever and WBC of 14.6. Likely source of infection is UTI versus prostatitis. Lactic acid 0.7. Resolved as of 09/10. Labs 09/11: * WBC 13.5 with 83.6% neutrophils. (2) Prostatitis ICD Codes: N41.9 - Inflammatory disease of prostate, unspecified Status: Acute Plan: Patient with dysuria and flank pain. Admission Labs: * WBC 14.6 with 88% neutrophils. * ESR: 42. CRP: 7.43. * Lactic acid: 0.7. * Chlamydia trachomatis not detected. * N. gonorrhoeae not detected. * HIV nonreactive. Labs 09/11: * WBC 13.5. Microbiology: * Blood culture: negative to date. * Urine culture: pending. Imaging: * Abdomen pelvis CT 09/10: Free fluid within the low pelvis as well as edematous changes within the seminal vesicles and areas of a low attenuation within the prostate. Prostatitis with possible prostate abscess would be a consideration. No free air identified. Moderate amount of stool within the colon without bowel obstruction. Incidental 2.6 cm simple cyst along the anterior margin of the spleen. * Lumbar CT 09/10: No acute findings. Consults: * Urology: Agree with present antibiotic therapy. Con't with analgesic support. Repeat cbc in am. Will follow. Orders: * Landers to prevent urinary retention. Medications: * Patient received vancomycin and Zosyn once in the ED. * Azithromycin 250mg PO q24hr. * Ceftriaxone 1g IV q24hr. * Toradol as needed for pain. Morphine for breakthrough pain. (3) UTI (urinary tract infection) ICD Codes: N39.0 - Urinary tract infection, site not specified Status: Acute Plan: On admission, UA: hazy, 300 protein, moderate occult blood, moderate leukocyte esterase, 110 RBC, 106 WBC. Microbiology: Urine culture pending. Medications: * Covered with ceftriaxone 1 g IV daily. (4) COPD exacerbation ICD Codes: J44.1 - Chronic obstructive pulmonary disease with (acute) exacerbation Status: Acute Plan: Patient with extensive smoking history reporting intermittent shortness of breath and productive cough. Microbiology: * Influenza A/B negative. * Sputum cultures: Pending Orders: * Incentive spirometry. * Acapella. * Respiratory CPT. Medications: * Ceftriaxone 1 g IV daily with azithromycin. * DuoNeb 1 ampule q6hrs NEB INH. * Albuterol 2.5mg q2hrs NEB INH PRN for Shortness of Breath. * Tessalon Perles 200 mg PRN for Cough. (5) Suicidal ideation ICD Codes: R45.851 - Suicidal ideations Status: Acute Plan: Patient voiced suicidal ideations to sister, who contacted nursing staff. Patient denies suicidal ideations to physician team and nursing staff. Orders: * Sitter for precaution. Consults: * Psych. Awaiting recommendations. 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 Patient currently with one major Hayes criteria (Echo with vegetation) and two minor criteria (IVDU and Fever), not meeting definition of endocarditis at this time. Studies: * ECHO pending. (7) IVDU (intravenous drug user) ICD Codes: F19.90 - Other psychoactive substance use, unspecified, uncomplicated Status: Chronic Plan: Heroin and cocaine use within the last 24 hours. Avoid beta-blockers due to cocaine use. Monitor for signs of withdrawal. Labs: * UDS: opiate, cocaine and cannabinoid positive. * Hepatitis A IgM Ab nonreactive. * Hepatitis Bs Antigen nonreactive. * Hepatitis B Core IgM Ab nonreactive. * Hepatitis C IgG Ab reactive. * HCV RNA Genotype pending. * HCV RNA PCR pending. * HIV nonreactive. (8) Hepatitis C ICD Codes: B19.20 - Unspecified viral hepatitis C without hepatic coma Status: Acute Plan: Patient reports history of hepatitis C without treatment. * See plan above. (9) Tobacco abuse ICD Codes: Z72.0 - Tobacco use Status: Chronic Plan: Patient with history of tobacco use. Medications: * Nicotine patch daily. (10) Constipation ICD Codes: K59.00 - Constipation, unspecified Status: Acute Plan: Patient with reported constipation. Microbiology: * Hemoccult negative Medications: * Constipation protocol in place. (11) Nutrition, metabolism, and development symptoms ICD Codes: R63.8 - Other symptoms and signs concerning food and fluid intake Status: Acute Plan: Diet: * Regular as tolerated. Fluids: * Normal saline at 110 mL/h. Electrolytes: * Monitor and replete as necessary. (12) DVT prophylaxis Status: Acute Plan: SCDs Held chemical prophylaxis in case of procedure. See the residents documentation for details. I saw and evaluated the patient regarding the cox portions of this evaluation and agree with the residents findings and plans as written. Parts of this note were created using [email or web address] voice recognition software program. While efforts were made to correct any mistakes made by this software, some mistakes, errors, and omissions may remain in the final note that were not caught when the note was originally created. Plan of care was discussed and agreed upon with the patient as specifically documented in the above note. An opportunity to ask questions with explanation was provided. Patient voiced understanding on all information reviewed and discussed. (Jovanny Anderson MD) Problem Qualifiers (1) Sepsis: Qualified Codes: A41.9 - Sepsis, unspecified organism (2) Prostatitis: Qualified Codes: N41.0 - Acute prostatitis (3) UTI (urinary tract infection): Qualified Codes: N30.00 - Acute cystitis without hematuria (4) Hepatitis C: Qualified Codes: B17.10 - Acute hepatitis C without hepatic coma (5) Constipation: Qualified Codes: K59.00 - Constipation, unspecified Harriet Ashley MD R1 Sep 11, 2017 16:05 Jovanny Anderson MD Sep 12, 2017 11:59
--- NOTE | 2017-09-11 17:03 | ECHRPT ---
Indication: Acute and subacute endocarditis, unspecified CONCLUSIONS Normal left ventricular size and wall thickness. The left ventricular systolic function is normal wi th an estimated ejection fraction in the range of 60-65%. Normal wall motion. There is trace tricuspid valve regurgitation. The estimated pulmonary arterial pressure is 30 mmHg. No evidence for endocarditis. BP: 147 / 77 HR: 48 Rhythm: Sinus MEASUREMENTS (Male / Female) Normal Values Technical Quality:Good 2D ECHO LV Diastolic Diameter PLAX 4.5 cm 4.2 - 5.9 / 3.9 - 5.3 cm LV Systolic Diameter PLAX 3.5 cm IVS Diastolic Thickness 0.9 cm 0.6 - 1.0 / 0.6 - 0.9 cm LVPW Diastolic Thickness 0.9 cm 0.6 - 1.0 / 0.6 - 0.9 cm LV Relative Wall Thickness 0.4 LVOT Diameter 1.8 cm M-MODE Aortic Root Diameter MM 2.5 cm LA Systolic Diameter MM 3.2 cm LA Ao Ratio MM 1.3 AV Cusp Separation MM 1.9 cm DOPPLER AV Peak Velocity 148.0 cm/s AV Peak Gradient 8.8 mmHg LVOT Peak Velocity 106.0 cm/s LVOT Peak Gradient 4.5 mmHg AV Area Cont Eq pk 1.8 cm Mitral E Point Velocity 128.0 cm/s Mitral A Point Velocity 25.7 cm/s Mitral E to A Ratio 5.0 LV E' Lateral Velocity 17.7 cm/s Mitral E to LV E' Lateral Ratio 7.2 LV E' Septal Velocity 14.6 cm/s Mitral E to LV E' Septal Ratio 8.8 TR Peak Velocity 236.0 cm/s TR Peak Gradient 22.3 mmHg Right Atrial Pressure 10.0 mmHg Pulmonary Artery Systolic Pressu 32.3 mmHg Right Ventricular Systolic Press 32.3 mmHg PV Peak Velocity 128.0 cm/s PV Peak Gradient 6.6 mmHg FINDINGS LEFT VENTRICLE Normal left ventricular size and wall thickness. The left ventricular systolic function is normal wi th an estimated ejection fraction in the range of 60-65%. Normal wall motion. RIGHT VENTRICLE Normal right ventricular size and systolic function. LEFT ATRIUM The left atrial size is normal. RIGHT ATRIUM The right atrial size is normal. ATRIAL SEPTUM Normal atrial septal thickness without atrial level shunting by limited color doppler interrogation. AORTA The aortic root and proximal ascending aorta are normal in size on limited imaging. MITRAL VALVE Structurally normal mitral valve. No mitral valve stenosis or regurgitation. AORTIC VALVE Trileaflet aortic valve. No aortic valve stenosis or regurgitation. TRICUSPID VALVE There is trace tricuspid valve regurgitation. The estimated pulmonary arterial pressure is 30 mmHg. PULMONARY VALVE No pulmonary valve regurgitation or stenosis. VESSELS The inferior vena cava is normal in size. PERICARDIUM No pericardial effusion. Jason Puga MD (Electronically Signed) Final Date:11 September 2017 17:02
[2017-09-11] MEDS: REMOVE OLD PATCH T-DERMAL SCH (20:53)
[2017-09-12] VITALS (10 sets, daily range): BP systolic 132–155; BP diastolic 66–86; PULSE 50–85; RESP 16–20; TEMP 97.8–99.6; O2SAT 96–100
[2017-09-12] MEDS: KETOROLAC TROMETHAMINE 30 MG/ML (IVP) VIAL IV PUSH PRN ×2 (02:23→11:58)
[2017-09-12] MEDS: RESP: ALBUTEROL 2.5 MG/IPRATROPIUM 0.5 MG NEB (SCH) INH ×4 (02:36→20:13)
[2017-09-12] MEDS: MORPHINE SULFATE 4 MG/ML INJ IV PUSH PRN ×3 (03:47→18:34)
[2017-09-12] MEDS: DOCUSATE SODIUM 50 MG/SENNA 8.6 MG TAB PO SCH ×2 (07:57→22:13)
[2017-09-12 08:32] LABS: HEMATOCRIT 43.8 % (39.0-51.0); HEMOGLOBIN 14.3 GM/DL (13.0-17.0); MEAN CELL VOLUME 81.7 FL (80.0-100.0); MEAN CORPUSCULAR HEMOGLOBIN 26.7 PG (27.0-34.0); MEAN CORPUSCULAR HGB CONC 32.7 % (32.0-36.0); MEAN PLATELET VOLUME 8.7 FL (7.0-11.0); PLATELET COUNT 277 TH/MM3 (150-450); RED BLOOD COUNT 5.36 MIL/MM3 (4.50-5.90); RED CELL DISTRIBUTION WIDTH 14.2 % (11.6-17.2); WHITE BLOOD COUNT 17.5 TH/MM3 (4.0-11.0)
[2017-09-12] MEDS: SODIUM CHLORIDE 0.9% FLUSH 10 ML FLUSH IV FLUSH SCH ×2 (08:44→21:00)
[2017-09-12 08:52] LABS: BICARBONATE 26.5 MEQ/L (21.0-32.0); CALCIUM 8.4 MG/DL (8.5-10.1); CREATININE 0.59 MG/DL (0.60-1.30)
[2017-09-12] MEDS: NICOTINE 14 MG/24 HR PATCH T-DERMAL SCH (09:00)
--- NOTE | 2017-09-12 11:08 | HHI.FPPN ---
Subjective Remarks Patient seen and examined this morning by medical team. No acute events overnight per nursing staff. Patient currently n.p.o. for scheduled cystoscopy. Discussed with patient need for procedure as per report patient contemplating declining procedure. Patient is currently agreeable to proceeding with cystoscopy. Patient's only complaint is continued constipation likely secondary to chronic opiate use. Otherwise he has no acute complaints and denies any fevers, chills, shortness of breath, chest pain, NVD, or calf tenderness. (Tdo Patel MD R2) Objective Vitals Vital Signs Date Time Temp Pulse Resp B/P (MAP) Pulse Ox O2 Delivery O2 Flow Rate FiO2 09/12/17 08:02 98.0 50 16 148/78 (101) 96 09/12/17 03:53 85 09/12/17 03:43 99.2 56 18 143/74 (97) 98 09/12/17 00:37 98.1 66 20 143/66 (91) 98 09/11/17 23:55 58 09/11/17 20:48 97.4 58 20 140/74 (96) 99 09/11/17 19:57 68 09/11/17 19:45 Room Air 09/11/17 16:01 98.0 52 16 146/74 (98) 100 09/11/17 12:01 97.5 49 16 142/72 (95) 100 09/11/17 11:55 48 I/O 09/11/17 09/11/17 09/11/17 09/12/17 09/12/17 09/12/17 07:00 15:00 23:00 07:00 15:00 23:00 Intake Total 1240 ml 420 ml 180 ml Output Total 600 ml Balance 1240 ml -180 ml 180 ml Intake Oral 240 ml 420 ml 180 ml IV Total 1000 ml Output Urine Total 600 ml # Voids 2 4 # Bowel Movements 0 0 0 (Tod Patel MD R2) Result Diagram: 09/12/1780509/12/17805 Objective Remarks GENERAL: Thin appearing male laying in bed, in obvious distress. SKIN: Warm and dry. No rash. Multiple tattoos on body. Hyperpigmented. No Osler nodes, Janeway lesions, or splinter hemorrhages appreciated. HEENT: Atraumatic, normocephalic with extraocular motions intact. Pupils equal and round. No rhinorrhea. No LAD, JVD appreciated. CARDIOVASCULAR: Regular rate and rhythm without obvious murmurs, gallops, or rubs. RESPIRATORY: No increased work of breathing at this time. Mild expiratory wheezes appreciated. GASTROINTESTINAL: Positive bowel sounds. Abdomen soft, nondistended. Exquisitely tender in lower 2 quadrants. No masses appreciated. MUSCULOSKELETAL: No cyanosis or edema. No calf tenderness. No CVA tenderness. NEURO/PSYCH: Awake, alert, and oriented x3. Normal speech and judgement. (Tod Patel MD R2) A/P Assessment and Plan Patient is a 37-year-old male presenting with dysuria and flank pain found to have acute prostatitis. Discharge Planning Pending clinical improvement. (Tod Patel MD R2) Problem List: (1) Prostatitis ICD Codes: N41.9 - Inflammatory disease of prostate, unspecified Status: Acute Plan: Patient with dysuria and flank pain. Admission Labs: * WBC 14.6 with 88% neutrophils. * ESR: 42. CRP: 7.43. * Lactic acid: 0.7. * Chlamydia trachomatis not detected. * N. gonorrhoeae not detected. * HIV nonreactive. Labs * WBC 17.5. Microbiology: * Blood culture: negative to date. * Urine culture: 20-50,000 mixed gram-positive ester Imaging: * Abdomen pelvis CT 09/10: Free fluid within the low pelvis as well as edematous changes within the seminal vesicles and areas of a low attenuation within the prostate. Prostatitis with possible prostate abscess would be a consideration. No free air identified. Moderate amount of stool within the colon without bowel obstruction. Incidental 2.6 cm simple cyst along the anterior margin of the spleen. * Lumbar CT 09/10: No acute findings. Consults: * Urology: Agree with present antibiotic therapy. Scheduled patient for cystoscopy 09/12/17. Orders: * Landers to prevent urinary retention. Medications: * Patient received vancomycin and Zosyn once in the ED. * Azithromycin 250mg PO q24hr. * Ceftriaxone 1g IV q24hr. * Toradol as needed for pain. Morphine for breakthrough pain. (2) Sepsis ICD Codes: A41.9 - Sepsis, unspecified organism Status: Resolved Plan: On admission, patient met sepsis criteria with 102 fever and WBC of 14.6. Likely source of infection is UTI versus prostatitis. Lactic acid 0.7. Resolved as of 09/10. Labs 09/11: * WBC 13.5 with 83.6% neutrophils. (3) UTI (urinary tract infection) ICD Codes: N39.0 - Urinary tract infection, site not specified Status: Acute Plan: On admission, UA: hazy, 300 protein, moderate occult blood, moderate leukocyte esterase, 110 RBC, 106 WBC. Microbiology: Urine culture: 10-50,000 mixed gram-positive ester Medications: * Covered with ceftriaxone 1 g IV daily. (4) COPD exacerbation ICD Codes: J44.1 - Chronic obstructive pulmonary disease with (acute) exacerbation Status: Acute Plan: Patient with extensive smoking history reporting intermittent shortness of breath and productive cough. Reports improved respiratory status. Microbiology: * Influenza A/B negative. * Sputum cultures: Pending Orders: * Incentive spirometry. * Acapella. * Respiratory CPT. Medications: * Ceftriaxone 1 g IV daily with azithromycin. * DuoNeb 1 ampule q6hrs NEB INH. * Albuterol 2.5mg q2hrs NEB INH PRN for Shortness of Breath. * Tessalon Perles 200 mg PRN for Cough. (5) Suicidal ideation ICD Codes: R45.851 - Suicidal ideations Status: Acute Plan: Patient voiced suicidal ideations to sister, who contacted nursing staff. Patient denies suicidal ideations to physician team and nursing staff. Orders: * Sitter for precaution. Consults: * Psych. 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 Patient currently with one major Hayes criteria (Echo with vegetation) and two minor criteria (IVDU and Fever), not meeting definition of endocarditis at this time. Studies: * ECHO: Normal left ventricular size and thickness. Ejection fraction 60-65% with normal wall motion. Estimated pulmonary arterial pressure 30 mmHg. Trace tricuspid regurgitation. (7) IVDU (intravenous drug user) ICD Codes: F19.90 - Other psychoactive substance use, unspecified, uncomplicated Status: Chronic Plan: Heroin and cocaine use within the last 24 hours. Avoid beta-blockers due to cocaine use. Monitor for signs of withdrawal. Labs: * UDS: opiate, cocaine and cannabinoid positive. * Hepatitis A IgM Ab nonreactive. * Hepatitis Bs Antigen nonreactive. * Hepatitis B Core IgM Ab nonreactive. * Hepatitis C IgG Ab reactive. * HCV RNA Genotype pending. * HCV RNA PCR pending. * HIV nonreactive. (8) Hepatitis C ICD Codes: B19.20 - Unspecified viral hepatitis C without hepatic coma Status: Acute Plan: Patient reports history of hepatitis C without treatment. * See plan above. (9) Tobacco abuse ICD Codes: Z72.0 - Tobacco use Status: Chronic Plan: Patient with history of tobacco use. Medications: * Nicotine patch daily. (10) Constipation ICD Codes: K59.00 - Constipation, unspecified Status: Acute Plan: Patient with reported constipation. Microbiology: * Hemoccult negative Medications: * Constipation protocol in place. (11) Nutrition, metabolism, and development symptoms ICD Codes: R63.8 - Other symptoms and signs concerning food and fluid intake Status: Acute Plan: Diet: * Regular as tolerated. Fluids: * Normal saline at 110 mL/h. Electrolytes: * Monitor and replete as necessary. (12) DVT prophylaxis Status: Acute Plan: SCDs Held chemical prophylaxis in case of procedure. (Tod Patel MD R2) Problem List: (1) Prostatitis ICD Codes: N41.9 - Inflammatory disease of prostate, unspecified Status: Acute Plan: Patient with dysuria and flank pain. Admission Labs: * WBC 14.6 with 88% neutrophils. * ESR: 42. CRP: 7.43. * Lactic acid: 0.7. * Chlamydia trachomatis not detected. * N. gonorrhoeae not detected. * HIV nonreactive. Labs * WBC 17.5. Microbiology: * Blood culture: negative to date. * Urine culture: 20-50,000 mixed gram-positive ester Imaging: * Abdomen pelvis CT 09/10: Free fluid within the low pelvis as well as edematous changes within the seminal vesicles and areas of a low attenuation within the prostate. Prostatitis with possible prostate abscess would be a consideration. No free air identified. Moderate amount of stool within the colon without bowel obstruction. Incidental 2.6 cm simple cyst along the anterior margin of the spleen. * Lumbar CT 09/10: No acute findings. Consults: * Urology: Agree with present antibiotic therapy. Scheduled patient for cystoscopy 09/12/17. Orders: * Landers to prevent urinary retention. Medications: * Patient received vancomycin and Zosyn once in the ED. * Azithromycin 250mg PO q24hr. * Ceftriaxone 1g IV q24hr. * Toradol as needed for pain. Morphine for breakthrough pain. (2) Sepsis ICD Codes: A41.9 - Sepsis, unspecified organism Status: Resolved Plan: On admission, patient met sepsis criteria with 102 fever and WBC of 14.6. Likely source of infection is UTI versus prostatitis. Lactic acid 0.7. Resolved as of 09/10. Labs 09/11: * WBC 13.5 with 83.6% neutrophils. (3) UTI (urinary tract infection) ICD Codes: N39.0 - Urinary tract infection, site not specified Status: Acute Plan: On admission, UA: hazy, 300 protein, moderate occult blood, moderate leukocyte esterase, 110 RBC, 106 WBC. Microbiology: Urine culture: 10-50,000 mixed gram-positive ester Medications: * Covered with ceftriaxone 1 g IV daily. (4) COPD exacerbation ICD Codes: J44.1 - Chronic obstructive pulmonary disease with (acute) exacerbation Status: Acute Plan: Patient with extensive smoking history reporting intermittent shortness of breath and productive cough. Reports improved respiratory status. Microbiology: * Influenza A/B negative. * Sputum cultures: Pending Orders: * Incentive spirometry. * Acapella. * Respiratory CPT. Medications: * Ceftriaxone 1 g IV daily with azithromycin. * DuoNeb 1 ampule q6hrs NEB INH. * Albuterol 2.5mg q2hrs NEB INH PRN for Shortness of Breath. * Tessalon Perles 200 mg PRN for Cough. (5) Suicidal ideation ICD Codes: R45.851 - Suicidal ideations Status: Acute Plan: Patient voiced suicidal ideations to sister, who contacted nursing staff. Patient denies suicidal ideations to physician team and nursing staff. Orders: * Sitter for precaution. Consults: * Psych. 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 Patient currently with one major Hayes criteria (Echo with vegetation) and two minor criteria (IVDU and Fever), not meeting definition of endocarditis at this time. Studies: * ECHO: Normal left ventricular size and thickness. Ejection fraction 60-65% with normal wall motion. Estimated pulmonary arterial pressure 30 mmHg. Trace tricuspid regurgitation. (7) IVDU (intravenous drug user) ICD Codes: F19.90 - Other psychoactive substance use, unspecified, uncomplicated Status: Chronic Plan: Heroin and cocaine use within the last 24 hours. Avoid beta-blockers due to cocaine use. Monitor for signs of withdrawal. Labs: * UDS: opiate, cocaine and cannabinoid positive. * Hepatitis A IgM Ab nonreactive. * Hepatitis Bs Antigen nonreactive. * Hepatitis B Core IgM Ab nonreactive. * Hepatitis C IgG Ab reactive. * HCV RNA Genotype pending. * HCV RNA PCR pending. * HIV nonreactive. (8) Hepatitis C ICD Codes: B19.20 - Unspecified viral hepatitis C without hepatic coma Status: Acute Plan: Patient reports history of hepatitis C without treatment. * See plan above. (9) Tobacco abuse ICD Codes: Z72.0 - Tobacco use Status: Chronic Plan: Patient with history of tobacco use. Medications: * Nicotine patch daily. (10) Constipation ICD Codes: K59.00 - Constipation, unspecified Status: Acute Plan: Patient with reported constipation. Microbiology: * Hemoccult negative Medications: * Constipation protocol in place. (11) Nutrition, metabolism, and development symptoms ICD Codes: R63.8 - Other symptoms and signs concerning food and fluid intake Status: Acute Plan: Diet: * Regular as tolerated. Fluids: * Normal saline at 110 mL/h. Electrolytes: * Monitor and replete as necessary. (12) DVT prophylaxis Status: Acute Plan: SCDs Held chemical prophylaxis in case of procedure. See the residents documentation for details. I saw and evaluated the patient regarding the cox portions of this evaluation and agree with the residents findings and plans as written. Parts of this note were created using [employer] voice recognition software program. While efforts were made to correct any mistakes made by this software, some mistakes, errors, and omissions may remain in the final note that were not caught when the note was originally created. Plan of care was discussed and agreed upon with the patient as specifically documented in the above note. An opportunity to ask questions with explanation was provided. Patient voiced understanding on all information reviewed and discussed. (Jovanny Anderson MD) Problem Qualifiers (1) Prostatitis: Qualified Codes: N41.0 - Acute prostatitis (2) Sepsis: Qualified Codes: A41.9 - Sepsis, unspecified organism (3) UTI (urinary tract infection): Qualified Codes: N30.00 - Acute cystitis without hematuria (4) Hepatitis C: Qualified Codes: B17.10 - Acute hepatitis C without hepatic coma (5) Constipation: Qualified Codes: K59.00 - Constipation, unspecified Tod Patel MD R2 Sep 12, 2017 11:08 Jovanny Anderson MD Sep 12, 2017 12:22
[2017-09-12] MEDS: AZITHROMYCIN 250 MG TAB PO SCH (11:38)
[2017-09-12] MEDS: cefTRIAXone INJ 1,000 MG in SODIUM CHLORIDE 0.9% INJ 100 ML IV SCH (11:40)
[2017-09-12] MEDS ORDERED: LACTATED RINGER'S 1000 ML INJ 1,000 ML IV ONE (12:00)
[2017-09-12] MEDS ORDERED: SUCCINYLCHOLINE CHLORIDE 100 MG/5 ML SYRINGE IV PUSH ONE (12:00)
[2017-09-12] MEDS ORDERED: ONDANSETRON HCL 4 MG/2 ML VIAL IV ONE (12:00)
[2017-09-12] MEDS ORDERED: LIDOCAINE HCL 1% PF 5 ML SYRINGE OTHER ONE (12:00)
[2017-09-12] MEDS ORDERED: PROPOFOL 200 MG/20 ML AMP IV ONE (12:00)
[2017-09-12] MEDS ORDERED: LABETALOL HCL 100 MG/20 ML VIAL IV ONE (12:00)
[2017-09-12] MEDS ORDERED: hydrOXYzine HCL 25 MG TAB PO PRN (13:15)
--- NOTE | 2017-09-12 13:34 | PD.PSY.CON ---
Provisional Diagnosis Admission Date Sep 10, 2017 at 09:24 [place] I. Polysubstance dependence including cannabis, cocaine, heroin, impulse control disorder, history of anxiety [place] II. Unspecified personality disorder [place] III. Hepatitis C, COPD, sepsis, endocarditis, cellulitis [place] IV. Poor family and social support, homeless [place] V. 55 History of Present Illness Service Psychiatry Consult Requested By Medicine Reason for Consult Suicidal ideation Primary Care Physician No Primary Care Physician HPI The patient is a 37-year-old man, homeless, single, employed, with psychiatric history of polysubstance dependence including heroin, cocaine, cannabis, multiple ER visits on the Castelan act with substance related problems, no previous psychiatric hospitalizations, no previous suicidal attempts, IV drug user, who presented to the ED with dysuria and flank pain. The patient was admitted for cellulitis and found to have an echocardiogram with vegetation concerning for possible endocarditis. He has history of prostatitis, hepatitis C, COPD. The patient was consulted to psychiatry due to suicidal ideation. EMR was reviewed. The case was discussed with nurse in charge. On psychiatric evaluation the patient is calm, cooperative and pleasant. The patient reports being on pain and anxious, but doing much better now. He also reports having difficulty sleeping at night and been struggling with the withdrawal of opiates. But he reports good mood, he says that he was very upset yesterday with his sister in the phone, had an argument with her, may a suicidal statement ," but without any suicidal intentions, I had never tried to commit suicide, the liver are not I love life". The patient reports that after this hospitalization he is quite committed to engage in a rehabilitation program " and get rid of this drug addiction". He denies suicidal and homicidal ideation , he denies visual and auditory hallucinations. Patient is oriented 3, no fluctuation of consciousness, no attention deficit, no paranoia, delusions, no loosening of associations, no ideas of reference, no agitation, no aggressive behavior present. The patient reports daily use of cocaine and heroine, he is 5 -10 months bags of heroine every day IV, also almost daily use of marijuana. Review of Systems Constitutional: DENIES: Diaphoretic episodes, Fatigue, Fever, Weight gain, Weight loss, Chills, Dizziness, Change in appetite, Night Sweats Endocrine: DENIES: Heat/cold intolerance, Polydipsia, Polyuria, Polyphagia Eyes: DENIES: Blurred vision, Diplopia, Eye inflammation, Eye pain, Vision loss , Photosensitivity, Double Vision Ears, nose, mouth, throat: DENIES: Tinnitus, Hearing loss, Vertigo, Nasal discharge, Oral lesions, Throat pain, Hoarseness, Ear Pain, Running Nose, Epistaxis, Sinus Pain, Toothache, Odynophagia Respiratory: DENIES: Apneas, Cough, Snoring, Wheezing, Hemoptysis, Sputum production, Shortness of breath Cardiovascular: DENIES: Chest pain, Palpitations, Syncope, Dyspnea on Exertion , PND, Lower Extremity Edema, Orthopnea, Claudication Gastrointestinal: DENIES: Abdominal pain, Black stools, Bloody stools, Constipation, Diarrhea, Nausea, Vomiting, Difficulty Swallowing, Anorexia Genitourinary: DENIES: Sexual dysfunction, Urinary frequency, Urinary incontinence, Urgency, Hematuria, Dysuria, Nocturia, Penile Discharge, Testicular Pain, Testicular Swelling Musculoskeletal: DENIES: Joint pain, Muscle aches, Stiffness, Joint Swelling, Back pain, Neck pain Integumentary: DENIES: Abnormal pigmentation, Nail changes, Pruritus, Rash Hematologic/lymphatic: DENIES: Bruising, Lymphadenopathy Immunologic/allergic: DENIES: Eczema, Urticaria Neurologic: DENIES: Abnormal gait, Headache, Localized weakness, Paresthesias, Seizures, Speech Problems, Tremor, Poor Balance Psychiatric: COMPLAINS OF: Anxiety, DENIES: Confusion, Mood changes, Depression , Hallucinations, Agitation, Suicidal Ideation, Homicidal Ideation, Delusions Past Family Social History Coded Allergies: No Known Allergies (Verified Adverse Reaction, Unknown, 09/10/17) No Active Prescriptions or Reported Meds Current Medications Medications (Trade) Dose Ordered Sig/Bandar Route Start Time Stop Time Status Last Admin Sodium Chloride 1,000 ml @ 110 mls/hr Q9H6M IV 09/10/17 11:00 09/11/17 11:02 (NS Flush) 2 ml BID IV FLUSH 09/10/17 21:00 09/12/17 08:44 (NS Flush) 2 ml UNSCH PRN IV FLUSH 09/10/17 10:15 (Duoneb Neb) 1 ampule Q6HR NEB INH 09/10/17 11:00 09/11/17 17:51 (Albuterol Neb) 2.5 mg Q2HR NEB PRN INH 09/10/17 10:15 Ceftriaxone Sodium 1000 mg/ Sodium Chloride 100 ml @ 200 mls/hr Q24H IV 09/10/17 12:00 09/12/17 11:40 (Heparin Inj) 5,000 units Q8H SQ 09/10/17 11:00 Future Hold 09/10/17 11:23 (Tylenol) 650 mg Q6H PRN PO 09/10/17 10:15 (Motrin) 400 mg Q6H PRN PO 09/10/17 10:15 (Toradol Inj) 15 mg Q6H PRN IV PUSH 09/10/17 10:15 09/15/17 10:14 (Toradol Inj) 30 mg Q6H PRN IV PUSH 09/10/17 10:15 09/15/17 10:14 09/12/17 11:58 (Narcan Inj) 0.4 mg UNSCH PRN IV PUSH 09/10/17 10:15 (Habitrol 14 Mg Patch.24 Hr) 1 patch DAILY T-DERMAL 09/10/17 11:00 09/11/17 08:49 Miscellaneous Information 1 HS T-DERMAL 09/10/17 21:00 09/11/17 20:53 (Vy-Colace) 1 tab BID PO 09/10/17 10:30 09/11/17 20:51 (Milk Of Magnesia Liq) 30 ml Q12H PRN PO 09/10/17 10:30 09/11/17 15:04 (Senokot) 17.2 mg Q12H PRN PO 09/10/17 10:30 09/12/17 00:34 (Dulcolax Supp) 10 mg DAILY PRN RECTAL 09/10/17 10:30 09/11/17 17:14 (Tessalon) 200 mg TID PRN PO 09/10/17 11:00 (Zithromax) 250 mg Q24H PO 09/11/17 12:00 09/14/17 12:01 09/12/17 11:38 (Vistaril) 50 mg HS PRN PO 09/10/17 22:45 09/12/17 00:34 (Morphine Inj) 3 mg Q4H PRN IV PUSH 09/11/17 10:45 09/12/17 08:41 (Zofran Odt) 4 mg Q6H PRN PO 09/11/17 11:15 09/11/17 11:45 (Atarax) 25 mg Q8H PRN PO 09/12/17 13:15 UNV (SEROquel) 50 mg HS PO 09/12/17 21:00 UNV Family Psych History No family psychiatric history Social History Patient was born and raised in [place], he is homeless, single, unemployed, his highest level of education is 12th grade Patient's Strengths (min. 2) Verbal communication Physical Exam No tremors, no EPS, no evidence of withdrawal symptoms at the moment, no psychomotor agitation or retardation no stiffness. Vital Signs Vital Signs Date Time Temp Pulse Resp B/P (MAP) Pulse Ox O2 Delivery O2 Flow Rate FiO2 09/12/17 12:19 97.8 54 16 155/86 (109) 98 09/11/17 19:45 Room Air 09/10/17 15:44 21 I/O 09/12/17 09/12/17 09/13/17 08:00 16:00 00:00 Intake Total 180 ml Balance 180 ml Lab Results Test 09/12/17 08:06 White Blood Count 17.5 TH/MM3 Red Blood Count 5.36 MIL/MM3 Hemoglobin 14.3 GM/DL Hematocrit 43.8 % Mean Corpuscular Volume 81.7 FL Mean Corpuscular Hemoglobin 26.7 PG Mean Corpuscular Hemoglobin Concent 32.7 % Red Cell Distribution Width 14.2 % Platelet Count 277 TH/MM3 Mean Platelet Volume 8.7 FL Blood Urea Nitrogen 6 MG/DL Creatinine 0.59 MG/DL Random Glucose 131 MG/DL Calcium Level 8.4 MG/DL Sodium Level 135 MEQ/L Potassium Level 3.8 MEQ/L Chloride Level 99 MEQ/L Carbon Dioxide Level 26.5 MEQ/L Anion Gap 10 MEQ/L Estimat Glomerular Filtration Rate 155 ML/MIN Date/Time Source Procedure Growth Status 09/10/17 05:28 Blood Peripheral Aerobic Blood Culture - Preliminary NO GROWTH IN 2 DAYS Resulted 09/10/17 05:28 Blood Peripheral Anaerobic Blood Culture - Preliminary NO GROWTH IN 2 DAYS Resulted 09/10/17 11:35 Nasal Washing Influenza Types A,B Antigen (SIGRID) - Final NEGATIVE FOR FLU A AND B ANTIGEN.... Complete 09/10/17 05:11 Urine Clean Catch Urine Culture - Final 10-50,000 CFU/ML MIXED GRAM POSITIVE ... Complete Mental Status Examination Appearance: Appropriate Consciousness: Alert Orientation: x4 Motor Activity: Normal gait Speech: Unremarkable Language: Adequate Fund of Knowledge: Adequate Attention and Concentration: Adequate Memory: Unremarkable Mood: Appropriate Affect: Appropriate Thought Process & Associations: Intact Thought Content: Appropriate Hallucination Type: None Delusion Type: None Suicidal Ideation: No Suicidal Plan: No Suicidal Intention: No Homicidal Ideation: No Homicidal Plan: No Homicidal Intention: No Insight: Adequate Judgment: Adequate Assessment & Plan Problem List: (1) Polysubstance dependence ICD Codes: F19.20 - Other psychoactive substance dependence, uncomplicated Assessment & Plan: On psychiatric evaluation today the patient does not present any significant, concerning or acute neuropsychiatric symptoms that requires an immediate psychiatric intervention. The patient denies symptoms of depression, lala and psychosis. He denies suicidal enemas ideation, he denies visual and auditory hallucinations. The patient reports that yesterday he made a suicidal statement to his sister in the context of frustration and anger after an argument with her. He reports that he has reasons to live for, that he like his life is motivated to get better and continue his life in a rehabilitation program. He does report mild to moderate anxiety, and difficulty sleeping at night, as well and some intermittent opiate withdrawal pain and irritability. The patient does not meet criteria for involuntary psychiatric admission. Castelan act will be lifted. I will order hydroxyzine 25 mg p.o. every 8 hours as needed anxiety. Seroquel 50 mg at bedtime to help with impulse control and insomnia. We will follow-up. Assessment & Plan Estimated LOS: Arya Egan MD Sep 12, 2017 13:34
--- NOTE | 2017-09-12 16:17 | PD.OP ---
Operative Report Date of Surgery: Sep 12, 2017 Preoperative Diagnosis: (1) Urinary retention Postoperative Diagnosis: (1) Urinary retention Procedure: Examination under anesthesia, cystoscopy and placement of Landers catheter. Anesthesia: General Surgeon: Byron Kovacs Steel Barrel Reamer(s): None Operation and Findings: Indication for procedures: 37-year-old gentleman admitted with prostatitis and urinary retention. Attempts to place a Landers catheter at the bedside were not successful. Patient presents now for exam under anesthesia, cystoscopy and possible direct visual internal urethrotomy. Operative procedures in detail: Patient was brought to the operating room suite and placed supine. He was then placed under general anesthesia. He was then repositioned in the dorsal lithotomy position. After an appropriate timeout was undertaken I proceeded with performing a digital rectal exam under anesthesia. The prostate was approximately 25-30 g in size without any areas of fluctuance. The patient was then prepped and draped in normal sterile fashion. Cystoscopic evaluation was then performed utilizing the rigid cystoscope with the [place] sheath and the 30 lens. The urethra was patent without stricture formation and the prostatic urethra was not obstructing. Further passage of the cystoscope within urinary bladder was then easily accomplished. The bladder was then drained of all urine with evacuation of greater than 1 L. Once the bladder was fully drained of urine, the bladder was then filled with sterile water and inspection via the cystoscope was accomplished. Both right and left ureteral orifices were in correct anatomic position draining clear yellow urine. There were no bladder mucosal lesions, calculi or diverticula formation noted. The cystoscope was withdrawn and a [place] 10 cc Landers catheter was easily inserted and connected to gravity drainage. The patient tolerated the procedures without complications and was transferred to the PACU in satisfactory condition. Byron Kovacs MD Sep 12, 2017 16:17
[2017-09-12] MEDS ORDERED: MIDAZOLAM HCL 2 MG/2 ML VIAL ONE (17:03)
[2017-09-12] MEDS: SODIUM CHLOR 0.9% 1000 ML INJ 1,000 ML IV SCH (17:36)
[2017-09-12] MEDS ORDERED: DO NOT ADM ANY ANTICOAGULANT DRUGS PRN (19:30)
[2017-09-12] MEDS: REMOVE OLD PATCH T-DERMAL SCH (21:00)
[2017-09-12] MEDS: QUEtiapine FUMARATE 25 MG TAB PO SCH (22:13)
[2017-09-13] VITALS (13 sets, daily range): BP systolic 123–139; BP diastolic 65–80; PULSE 52–66; RESP 16–22; TEMP 97.8–98.3; O2SAT 96–98
[2017-09-13] MEDS: RESP: ALBUTEROL 2.5 MG/IPRATROPIUM 0.5 MG NEB (SCH) INH ×4 (02:32→21:04)
[2017-09-13] MEDS: SODIUM CHLOR 0.9% 1000 ML INJ 1,000 ML IV SCH ×3 (03:42→21:36)
[2017-09-13] MEDS: DOCUSATE SODIUM 50 MG/SENNA 8.6 MG TAB PO SCH ×2 (08:10→21:35)
[2017-09-13] MEDS: NICOTINE 14 MG/24 HR PATCH T-DERMAL SCH (08:11)
[2017-09-13] MEDS: KETOROLAC TROMETHAMINE 30 MG/ML (IVP) VIAL IV PUSH PRN ×3 (08:11→23:47)
[2017-09-13] MEDS: SODIUM CHLORIDE 0.9% FLUSH 10 ML FLUSH IV FLUSH SCH ×2 (08:11→21:36)
--- NOTE | 2017-09-13 10:33 | HHI.FPPN ---
Subjective Remarks Patient was seen and evaluated this morning. He reports feeling better since the procedure yesterday. Patient denies chest pain, heart palpitations, shortness of breath, nausea and vomiting. He is concerned about discharge with the Landers catheter and urology follow-up; the patient is homeless and has no means of transportation. All questions were answered. (Harriet Ashley MD R1) Objective Vitals Vital Signs Date Time Temp Pulse Resp B/P (MAP) Pulse Ox O2 Delivery O2 Flow Rate FiO2 09/13/17 08:50 96 09/13/17 08:00 98.0 57 22 139/79 (99) 96 09/13/17 07:36 Room Air 09/13/17 04:10 98.0 53 16 129/75 (93) 96 09/13/17 04:00 64 09/12/17 23:34 58 09/12/17 23:05 99.6 80 16 132/74 (93) 97 09/12/17 20:00 Room Air 09/12/17 19:44 64 09/12/17 19:28 99.1 64 16 139/85 (103) 100 09/12/17 17:00 97.6 49 16 132/85 (101) 100 Nasal Cannula 2 09/12/17 16:45 52 10 132/85 (101) 100 Nasal Cannula 2 09/12/17 16:33 97.6 78 16 128/76 (93) 100 Nasal Cannula 2 09/12/17 16:14 62 09/12/17 12:19 97.8 54 16 155/86 (109) 98 I/O 09/12/17 09/12/17 09/12/17 09/13/17 09/13/17 09/13/17 07:00 15:00 23:00 07:00 15:00 23:00 Intake Total 180 ml 500 ml 600 ml Output Total 5 ml 2200 ml Balance 180 ml 495 ml -1600 ml Intake Oral 180 ml 600 ml Other 500 ml Output Urine Total 2200 ml Estimated Blood Loss 5 ml # Voids 4 2 # Bowel Movements 0 0 0 (Harriet Ashley MD R1) Result Diagram: 09/12/17 0806 09/12/17 0806 Imaging Last Impressions Lumbar Spine CT 09/10/17 0515 Signed Impressions: CONCLUSION: 1. No acute findings on lumbar spine CT. Abdomen/Pelvis CT 09/10/17 1511 Signed Impressions: CONCLUSION: 1. The examination demonstrates free fluid within the low pelvis as well as ed ematous changes within the seminal vesicles and areas of low attenuation within the prostate. Prostatitis with possible prostate abscess would be a considerat ion 2. No free air free fluid identified. 3. Moderate amount of stool within the colon. No findings to indicate a bowel obstruction. 4. Incidental 2.6 cm simple cyst along the anterior margin of the spleen. Chest X-Ray 09/10/17 5825 Signed Impressions: CONCLUSION: No acute cardiopulmonary disease identified. Objective Remarks GENERAL: Thin appearing male laying in bed, in no distress. SKIN: Warm and dry. No rash. Multiple tattoos on body. HEENT: Atraumatic, normocephalic with extraocular motions intact. Pupils equal and round. No rhinorrhea. No LAD, JVD appreciated. CARDIOVASCULAR: Regular rate and rhythm without obvious murmurs, gallops, or rubs. RESPIRATORY: No increased work of breathing at this time. Mild expiratory wheezes appreciated. GASTROINTESTINAL: Positive bowel sounds. Abdomen soft, nondistended. Minimally tender in lower two quadrants. No masses appreciated. MUSCULOSKELETAL: No cyanosis or edema. No calf tenderness. No CVA tenderness. NEURO/PSYCH: Awake, alert, and oriented x3. Normal speech and judgement. Procedures Examination under anesthesia, cystoscopy and placement of Landers catheter on . Medications and IVs Current Medications Medications (Trade) Dose Ordered Sig/Bandar Route Start Time Stop Time Status Last Admin Sodium Chloride 1,000 ml @ 110 mls/hr Q9H6M IV 09/10/17 11:00 09/13/17 03:42 (NS Flush) 2 ml BID IV FLUSH 09/10/17 21:00 09/13/17 08:11 (NS Flush) 2 ml UNSCH PRN IV FLUSH 09/10/17 10:15 (Duoneb Neb) 1 ampule Q6HR NEB INH 09/10/17 11:00 09/11/17 17:51 (Albuterol Neb) 2.5 mg Q2HR NEB PRN INH 09/10/17 10:15 Ceftriaxone Sodium 1000 mg/ Sodium Chloride 100 ml @ 200 mls/hr Q24H IV 09/10/17 12:00 09/12/17 11:40 (Heparin Inj) 5,000 units Q8H SQ 09/10/17 11:00 Future Hold 09/10/17 11:23 (Tylenol) 650 mg Q6H PRN PO 09/10/17 10:15 (Motrin) 400 mg Q6H PRN PO 09/10/17 10:15 (Toradol Inj) 15 mg Q6H PRN IV PUSH 09/10/17 10:15 09/15/17 10:14 (Toradol Inj) 30 mg Q6H PRN IV PUSH 09/10/17 10:15 09/15/17 10:14 09/13/17 08:11 (Narcan Inj) 0.4 mg UNSCH PRN IV PUSH 09/10/17 10:15 (Habitrol 14 Mg Patch.24 Hr) 1 patch DAILY T-DERMAL 09/10/17 11:00 09/13/17 08:11 Miscellaneous Information 1 HS T-DERMAL 09/10/17 21:00 09/11/17 20:53 (Vy-Colace) 1 tab BID PO 09/10/17 10:30 09/13/17 08:10 (Milk Of Jeniffer Liq) 30 ml Q12H PRN PO 09/10/17 10:30 09/11/17 15:04 (Senokot) 17.2 mg Q12H PRN PO 09/10/17 10:30 09/12/17 00:34 (Dulcolax Supp) 10 mg DAILY PRN RECTAL 09/10/17 10:30 09/11/17 17:14 (Tessalon) 200 mg TID PRN PO 09/10/17 11:00 (Zithromax) 250 mg Q24H PO 09/11/17 12:00 09/14/17 12:01 09/12/17 11:38 (Vistaril) 50 mg HS PRN PO 09/10/17 22:45 09/12/17 00:34 (Morphine Inj) 3 mg Q4H PRN IV PUSH 09/11/17 10:45 09/12/17 18:34 (Zofran Odt) 4 mg Q6H PRN PO 09/11/17 11:15 09/11/17 11:45 (Atarax) 25 mg Q8H PRN PO 09/12/17 13:15 (SEROquel) 50 mg HS PO 09/12/17 21:00 09/12/17 22:13 ([facility] [place] [facility]) ALL NURSING DEPARTME... UNSCH PRN .XX 09/12/17 19:30 09/13/17 19:29 (Harriet Ashley MD R1) Urinary Catheter: Yes Assessment to: Continue Landers insert reason: Obstruction/Retention (Harriet Ashley MD R1) Vascular Central Line Catheter: No (Harriet Ashley MD R1) A/P Assessment and Plan Patient is a 37-year-old male presenting with dysuria and flank pain found to have acute prostatitis. Discharge Planning Pending clinical improvement. (Harriet Ashley MD R1) Problem List: (1) Prostatitis ICD Codes: N41.9 - Inflammatory disease of prostate, unspecified Status: Acute Plan: Patient with dysuria and flank pain. Admission Labs: * WBC 14.6 with 88% neutrophils. * ESR: 42. CRP: 7.43. * Lactic acid: 0.7. * Chlamydia trachomatis not detected. * N. gonorrhoeae not detected. * HIV nonreactive. Labs 09/12: * WBC 17.5. Labs 09/13: * pending. Microbiology: * Blood culture: negative to date. * Urine culture: 10-50,000 CFU/mL mixed gram-positive ester. Imaging: * Abdomen pelvis CT 09/10: Free fluid within the low pelvis as well as edematous changes within the seminal vesicles and areas of a low attenuation within the prostate. Prostatitis with possible prostate abscess would be a consideration. No free air identified. Moderate amount of stool within the colon without bowel obstruction. Incidental 2.6 cm simple cyst along the anterior margin of the spleen. * Lumbar CT 09/10: No acute findings. Consults: * Urology: Continue with indwelling Landers catheter to gravity drainage for at least 1 week. Follow-up visit at office upon discharge. [phone]. Medications: * Patient received vancomycin and Zosyn once in the ED. * Azithromycin 250mg PO q24hr. * Ceftriaxone 1g IV q24hr. * Toradol as needed for pain. Morphine for breakthrough pain. (2) Sepsis ICD Codes: A41.9 - Sepsis, unspecified organism Status: Resolved Plan: On admission, patient met sepsis criteria with 102 fever and WBC of 14.6. Likely source of infection is UTI versus prostatitis. Lactic acid 0.7. Resolved as of 09/10. (3) UTI (urinary tract infection) ICD Codes: N39.0 - Urinary tract infection, site not specified Status: Acute Plan: On admission, UA: hazy, 300 protein, moderate occult blood, moderate leukocyte esterase, 110 RBC, 106 WBC. Microbiology: * Urine culture: 10-50,000 CFU/mL mixed gram-positive ester. Medications: * Covered with ceftriaxone 1 g IV daily. (4) Homeless ICD Codes: Z59.0 - Homelessness Status: Chronic Plan: He is concerned about discharge with the Landers catheter and urology follow-up; the patient is homeless and has no means of transportation. Discussed case with case management concerning arrangements at discharge. (5) COPD exacerbation ICD Codes: J44.1 - Chronic obstructive pulmonary disease with (acute) exacerbation Status: Resolved Plan: Patient with extensive smoking history reporting intermittent shortness of breath and productive cough. Reports improved respiratory status. Microbiology: * Influenza A/B negative. * Sputum cultures: Pending Orders: * Incentive spirometry. * Acapella. * Respiratory CPT. Medications: * Ceftriaxone 1 g IV daily with azithromycin. * DuoNeb 1 ampule q6hrs NEB INH. * Albuterol 2.5mg q2hrs NEB INH PRN for Shortness of Breath. * Tessalon Perles 200 mg PRN for Cough. (6) Suicidal ideation ICD Codes: R45.851 - Suicidal ideations Status: Acute Plan: Patient voiced suicidal ideations to sister, who contacted nursing staff. Patient denies suicidal ideations to physician team and nursing staff. Orders: * Sitter for precaution. Discontinued. Consults: * Psych: On psychiatric evaluation today the patient does not present any significant, concerning or acute neuropsychiatric symptoms that requires an immediate psychiatric intervention. The patient denies symptoms of depression, lala and psychosis. He denies suicidal enemas ideation, he denies visual and auditory hallucinations. The patient reports that yesterday he made a suicidal statement to his sister in the context of frustration and anger after an argument with her. He reports that he has reasons to live for, that he like his life is motivated to get better and continue his life in a rehabilitation program. He does report mild to moderate anxiety, and difficulty sleeping at night, as well and some intermittent opiate withdrawal pain and irritability. The patient does not meet criteria for involuntary psychiatric admission. Castelan act will be lifted. I will order hydroxyzine 25 mg p.o. every 8 hours as needed anxiety. Seroquel 50 mg at bedtime to help with impulse control and insomnia. We will follow-up. 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 Patient currently with one major Hayes criteria (Echo with vegetation) and two minor criteria (IVDU and Fever), not meeting definition of endocarditis at this time. Studies: * ECHO: Normal left ventricular size and thickness. Ejection fraction 60-65% with normal wall motion. Estimated pulmonary arterial pressure 30 mmHg. Trace tricuspid regurgitation. (8) IVDU (intravenous drug user) ICD Codes: F19.90 - Other psychoactive substance use, unspecified, uncomplicated Status: Chronic Plan: On admission, patient admitted to heroin and cocaine use in 24 hours prior to arrival to ED. Avoid beta-blockers due to cocaine use. Monitor for signs of withdrawal. Labs: * UDS: opiate, cocaine and cannabinoid positive. * Hepatitis A IgM Ab nonreactive. * Hepatitis Bs Antigen nonreactive. * Hepatitis B Core IgM Ab nonreactive. * Hepatitis C IgG Ab reactive. * HCV RNA Genotype pending. * HCV RNA PCR pending. * HIV nonreactive. (9) Hepatitis C ICD Codes: B19.20 - Unspecified viral hepatitis C without hepatic coma Status: Acute Plan: Patient reports history of hepatitis C without treatment. * See plan above. (10) Tobacco abuse ICD Codes: Z72.0 - Tobacco use Status: Chronic Plan: Patient with history of tobacco use. Medications: * Nicotine patch daily. (11) Constipation ICD Codes: K59.00 - Constipation, unspecified Status: Acute Plan: Patient with reported constipation. Microbiology: * Hemoccult negative Medications: * Constipation protocol in place. (12) Nutrition, metabolism, and development symptoms ICD Codes: R63.8 - Other symptoms and signs concerning food and fluid intake Status: Acute Plan: Diet: * Regular as tolerated. Fluids: * Normal saline at 110 mL/h. Electrolytes: * Monitor and replete as necessary. (13) DVT prophylaxis Status: Acute Plan: SCDs. (Harriet Ashley MD R1) Problem List: (1) Prostatitis ICD Codes: N41.9 - Inflammatory disease of prostate, unspecified Status: Acute Plan: Patient with dysuria and flank pain. Admission Labs: * WBC 14.6 with 88% neutrophils. * ESR: 42. CRP: 7.43. * Lactic acid: 0.7. * Chlamydia trachomatis not detected. * N. gonorrhoeae not detected. * HIV nonreactive. Labs 09/12: * WBC 17.5. Labs 09/13: * pending. Microbiology: * Blood culture: negative to date. * Urine culture: 10-50,000 CFU/mL mixed gram-positive ester. Imaging: * Abdomen pelvis CT 09/10: Free fluid within the low pelvis as well as edematous changes within the seminal vesicles and areas of a low attenuation within the prostate. Prostatitis with possible prostate abscess would be a consideration. No free air identified. Moderate amount of stool within the colon without bowel obstruction. Incidental 2.6 cm simple cyst along the anterior margin of the spleen. * Lumbar CT 09/10: No acute findings. Consults: * Urology: Continue with indwelling Landers catheter to gravity drainage for at least 1 week. Follow-up visit at office upon discharge. [phone]. Medications: * Patient received vancomycin and Zosyn once in the ED. * Azithromycin 250mg PO q24hr. * Ceftriaxone 1g IV q24hr. * Toradol as needed for pain. Morphine for breakthrough pain. (2) Sepsis ICD Codes: A41.9 - Sepsis, unspecified organism Status: Resolved Plan: On admission, patient met sepsis criteria with 102 fever and WBC of 14.6. Likely source of infection is UTI versus prostatitis. Lactic acid 0.7. Resolved as of 09/10. (3) UTI (urinary tract infection) ICD Codes: N39.0 - Urinary tract infection, site not specified Status: Acute Plan: On admission, UA: hazy, 300 protein, moderate occult blood, moderate leukocyte esterase, 110 RBC, 106 WBC. Microbiology: * Urine culture: 10-50,000 CFU/mL mixed gram-positive ester. Medications: * Covered with ceftriaxone 1 g IV daily. (4) Homeless ICD Codes: Z59.0 - Homelessness Status: Chronic Plan: He is concerned about discharge with the Landers catheter and urology follow-up; the patient is homeless and has no means of transportation. Discussed case with case management concerning arrangements at discharge. (5) COPD exacerbation ICD Codes: J44.1 - Chronic obstructive pulmonary disease with (acute) exacerbation Status: Resolved Plan: Patient with extensive smoking history reporting intermittent shortness of breath and productive cough. Reports improved respiratory status. Microbiology: * Influenza A/B negative. * Sputum cultures: Pending Orders: * Incentive spirometry. * Acapella. * Respiratory CPT. Medications: * Ceftriaxone 1 g IV daily with azithromycin. * DuoNeb 1 ampule q6hrs NEB INH. * Albuterol 2.5mg q2hrs NEB INH PRN for Shortness of Breath. * Tessalon Perles 200 mg PRN for Cough. (6) Suicidal ideation ICD Codes: R45.851 - Suicidal ideations Status: Acute Plan: Patient voiced suicidal ideations to sister, who contacted nursing staff. Patient denies suicidal ideations to physician team and nursing staff. Orders: * Sitter for precaution. Discontinued. Consults: * Psych: On psychiatric evaluation today the patient does not present any significant, concerning or acute neuropsychiatric symptoms that requires an immediate psychiatric intervention. The patient denies symptoms of depression, lala and psychosis. He denies suicidal enemas ideation, he denies visual and auditory hallucinations. The patient reports that yesterday he made a suicidal statement to his sister in the context of frustration and anger after an argument with her. He reports that he has reasons to live for, that he like his life is motivated to get better and continue his life in a rehabilitation program. He does report mild to moderate anxiety, and difficulty sleeping at night, as well and some intermittent opiate withdrawal pain and irritability. The patient does not meet criteria for involuntary psychiatric admission. Castelan act will be lifted. I will order hydroxyzine 25 mg p.o. every 8 hours as needed anxiety. Seroquel 50 mg at bedtime to help with impulse control and insomnia. We will follow-up. 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 Patient currently with one major Hayes criteria (Echo with vegetation) and two minor criteria (IVDU and Fever), not meeting definition of endocarditis at this time. Studies: * ECHO: Normal left ventricular size and thickness. Ejection fraction 60-65% with normal wall motion. Estimated pulmonary arterial pressure 30 mmHg. Trace tricuspid regurgitation. (8) IVDU (intravenous drug user) ICD Codes: F19.90 - Other psychoactive substance use, unspecified, uncomplicated Status: Chronic Plan: On admission, patient admitted to heroin and cocaine use in 24 hours prior to arrival to ED. Avoid beta-blockers due to cocaine use. Monitor for signs of withdrawal. Labs: * UDS: opiate, cocaine and cannabinoid positive. * Hepatitis A IgM Ab nonreactive. * Hepatitis Bs Antigen nonreactive. * Hepatitis B Core IgM Ab nonreactive. * Hepatitis C IgG Ab reactive. * HCV RNA Genotype pending. * HCV RNA PCR pending. * HIV nonreactive. (9) Hepatitis C ICD Codes: B19.20 - Unspecified viral hepatitis C without hepatic coma Status: Acute Plan: Patient reports history of hepatitis C without treatment. * See plan above. (10) Tobacco abuse ICD Codes: Z72.0 - Tobacco use Status: Chronic Plan: Patient with history of tobacco use. Medications: * Nicotine patch daily. (11) Constipation ICD Codes: K59.00 - Constipation, unspecified Status: Acute Plan: Patient with reported constipation. Microbiology: * Hemoccult negative Medications: * Constipation protocol in place. (12) Nutrition, metabolism, and development symptoms ICD Codes: R63.8 - Other symptoms and signs concerning food and fluid intake Status: Acute Plan: Diet: * Regular as tolerated. Fluids: * Normal saline at 110 mL/h. Electrolytes: * Monitor and replete as necessary. (13) DVT prophylaxis Status: Acute Plan: SCDs. See the residents documentation for details. I saw and evaluated the patient regarding the cox portions of this evaluation and agree with the residents findings and plans as written. Parts of this note were created using [employer] voice recognition software program. While efforts were made to correct any mistakes made by this software, some mistakes, errors, and omissions may remain in the final note that were not caught when the note was originally created. Plan of care was discussed and agreed upon with the patient as specifically documented in the above note. An opportunity to ask questions with explanation was provided. Patient voiced understanding on all information reviewed and discussed. (Jovanny Anderson MD) Problem Qualifiers (1) Prostatitis: Qualified Codes: N41.0 - Acute prostatitis (2) Sepsis: Qualified Codes: A41.9 - Sepsis, unspecified organism (3) UTI (urinary tract infection): Qualified Codes: N30.00 - Acute cystitis without hematuria (4) Hepatitis C: Qualified Codes: B17.10 - Acute hepatitis C without hepatic coma (5) Constipation: Qualified Codes: K59.00 - Constipation, unspecified Harriet Ashley MD R1 Sep 13, 2017 10:32 Jovanny Anderson MD Sep 16, 2017 14:03
[2017-09-13] MEDS: MORPHINE SULFATE 4 MG/ML INJ IV PUSH PRN ×2 (11:39→21:36)
[2017-09-13] MEDS: cefTRIAXone INJ 1,000 MG in SODIUM CHLORIDE 0.9% INJ 100 ML IV SCH (11:40)
[2017-09-13] MEDS: AZITHROMYCIN 250 MG TAB PO SCH (11:40)
[2017-09-13 13:23] LABS: AUTOMATED NEUTROPHIL # 10.5 TH/MM3 (1.8-7.7); BASOPHIL % 0.3 % (0.0-2.0); EOSINOPHIL # 0.2 TH/MM3 (0-0.4); EOSINOPHIL % 1.2 % (0.0-4.0); HEMATOCRIT 40.7 % (39.0-51.0); HEMOGLOBIN 13.4 GM/DL (13.0-17.0); LYMPHOCYTE # 1.5 TH/MM3 (1.0-4.8); MEAN CELL VOLUME 81.6 FL (80.0-100.0); MEAN CORPUSCULAR HEMOGLOBIN 26.8 PG (27.0-34.0); MEAN CORPUSCULAR HGB CONC 32.9 % (32.0-36.0); MEAN PLATELET VOLUME 8.8 FL (7.0-11.0); MONO % 7.9 % (0.0-8.0); NEUT % 79.6 % (16.0-70.0); PLATELET COUNT 254 TH/MM3 (150-450); RED CELL DISTRIBUTION WIDTH 14.3 % (11.6-17.2); WHITE BLOOD COUNT 13.2 TH/MM3 (4.0-11.0)
--- NOTE | 2017-09-13 15:16 | HHI.PR ---
Subjective Patient symptoms today Patient reports feeling better today Objective Vital Signs Vital Signs Date Time Temp Pulse Resp B/P (MAP) Pulse Ox O2 Delivery O2 Flow Rate FiO2 09/13/17 12:08 59 09/13/17 12:00 98.1 66 20 123/80 (94) 97 09/13/17 08:50 96 09/13/17 08:00 98.0 57 22 139/79 (99) 96 09/13/17 07:36 Room Air 09/13/17 04:10 98.0 53 16 129/75 (93) 96 09/13/17 04:00 64 09/12/17 23:34 58 09/12/17 23:05 99.6 80 16 132/74 (93) 97 09/12/17 20:00 Room Air 09/12/17 19:44 64 09/12/17 19:28 99.1 64 16 139/85 (103) 100 09/12/17 17:00 97.6 49 16 132/85 (101) 100 Nasal Cannula 2 09/12/17 16:45 52 10 132/85 (101) 100 Nasal Cannula 2 09/12/17 16:33 97.6 78 16 128/76 (93) 100 Nasal Cannula 2 09/12/17 16:14 62 Intake & Output 09/13/17 09/13/17 07:00 19:00 Intake Total 600 ml Output Total 2200 ml Balance -1600 ml Intake Oral 600 ml Output Urine Total 2200 ml # Bowel Movements 0 Result Diagram: 09/13/17 1235 09/12/17 0806 Objective Remarks Abdomen soft, nondistended, nontender Bladder not distended Landers catheter draining clear yellow urine Medications and IVs Current Medications Medications (Trade) Dose Ordered Sig/Bandar Route Start Time Stop Time Status Last Admin Sodium Chloride 1,000 ml @ 110 mls/hr Q9H6M IV 09/10/17 11:00 09/13/17 11:48 (NS Flush) 2 ml BID IV FLUSH 09/10/17 21:00 09/13/17 08:11 (NS Flush) 2 ml UNSCH PRN IV FLUSH 09/10/17 10:15 (Duoneb Neb) 1 ampule Q6HR NEB INH 09/10/17 11:00 09/11/17 17:51 (Albuterol Neb) 2.5 mg Q2HR NEB PRN INH 09/10/17 10:15 Ceftriaxone Sodium 1000 mg/ Sodium Chloride 100 ml @ 200 mls/hr Q24H IV 09/10/17 12:00 09/13/17 11:40 (Heparin Inj) 5,000 units Q8H SQ 09/10/17 11:00 Future Hold 09/10/17 11:23 (Tylenol) 650 mg Q6H PRN PO 09/10/17 10:15 (Motrin) 400 mg Q6H PRN PO 09/10/17 10:15 (Toradol Inj) 15 mg Q6H PRN IV PUSH 09/10/17 10:15 09/15/17 10:14 (Toradol Inj) 30 mg Q6H PRN IV PUSH 09/10/17 10:15 09/15/17 10:14 09/13/17 08:11 (Narcan Inj) 0.4 mg UNSCH PRN IV PUSH 09/10/17 10:15 (Habitrol 14 Mg Patch.24 Hr) 1 patch DAILY T-DERMAL 09/10/17 11:00 09/13/17 08:11 Miscellaneous Information 1 HS T-DERMAL 09/10/17 21:00 09/11/17 20:53 (Vy-Colace) 1 tab BID PO 09/10/17 10:30 09/13/17 08:10 (Milk Of Magnesia Liq) 30 ml Q12H PRN PO 09/10/17 10:30 09/11/17 15:04 (Senokot) 17.2 mg Q12H PRN PO 09/10/17 10:30 09/12/17 00:34 (Dulcolax Supp) 10 mg DAILY PRN RECTAL 09/10/17 10:30 09/11/17 17:14 (Tessalon) 200 mg TID PRN PO 09/10/17 11:00 (Zithromax) 250 mg Q24H PO 09/11/17 12:00 09/14/17 12:01 09/13/17 11:40 (Vistaril) 50 mg HS PRN PO 09/10/17 22:45 09/12/17 00:34 (Morphine Inj) 3 mg Q4H PRN IV PUSH 09/11/17 10:45 6/15/18 11:39 (Zofran Odt) 4 mg Q6H PRN PO 09/11/17 11:15 09/11/17 11:45 (Atarax) 25 mg Q8H PRN PO 09/12/17 13:15 (SEROquel) 50 mg HS PO 09/12/17 21:00 09/12/17 22:13 ([facility] Nursing Information) ALL NURSING DEPARTME... UNSCH PRN .XX 09/12/17 19:30 09/13/17 19:29 Assessment and Plan Assessment and Plan UROLOGIC IMPRESSION: 1. Acute Prostatitis with possible abscess formation with clinical improvement. 2. Urinary retention related to prostatitis status post placement of Landers catheter RECOMMENDATIONS: 1. Continue with Landers catheter for 1 additional week 2. Consider switching over to oral antibiotics pending overall clinical status and continue with antibiotic therapy 2 weeks. 3. Flomax 0.4 mg by mouth daily. 4. Patient to follow-up at my office in 1 week for a nurse visit to have his Landers catheter removed for a repeat voiding trial. . Byron Kovacs MD Sep 13, 2017 15:16
[2017-09-13 20:23] LABS: CALCIUM 7.7 MG/DL (8.5-10.1); CREATININE 0.67 MG/DL (0.60-1.30)
[2017-09-13] MEDS: REMOVE OLD PATCH T-DERMAL SCH (21:00)
[2017-09-13] MEDS: QUEtiapine FUMARATE 25 MG TAB PO SCH (21:36)
[2017-09-14] VITALS (8 sets, daily range): BP systolic 154–168; BP diastolic 84–91; PULSE 42–63; RESP 16–18; TEMP 97.3–98; O2SAT 95–99
[2017-09-14] MEDS: RESP: ALBUTEROL 2.5 MG/IPRATROPIUM 0.5 MG NEB (SCH) INH ×2 (03:29→10:00)
[2017-09-14] MEDS: SODIUM CHLOR 0.9% 1000 ML INJ 1,000 ML IV SCH (06:11)
[2017-09-14] MEDS: SODIUM CHLORIDE 0.9% FLUSH 10 ML FLUSH IV FLUSH SCH (07:55)
[2017-09-14] MEDS: KETOROLAC TROMETHAMINE 30 MG/ML (IVP) VIAL IV PUSH PRN (07:56)
[2017-09-14] MEDS: DOCUSATE SODIUM 50 MG/SENNA 8.6 MG TAB PO SCH (07:56)
[2017-09-14] MEDS: NICOTINE 14 MG/24 HR PATCH T-DERMAL SCH (07:57)
[2017-09-14 08:43] LABS: HEMATOCRIT 43.3 % (39.0-51.0); HEMOGLOBIN 14.2 GM/DL (13.0-17.0); MEAN CORPUSCULAR HGB CONC 32.9 % (32.0-36.0); MEAN PLATELET VOLUME 8.1 FL (7.0-11.0); PLATELET COUNT 260 TH/MM3 (150-450); RED BLOOD COUNT 5.28 MIL/MM3 (4.50-5.90); RED CELL DISTRIBUTION WIDTH 14.3 % (11.6-17.2); WHITE BLOOD COUNT 13.6 TH/MM3 (4.0-11.0)
[2017-09-14] MEDS ORDERED: TAMSULOSIN HCL 0.4 MG CAP PO SCH (09:00)
[2017-09-14 09:11] LABS: BICARBONATE 25.9 MEQ/L (21.0-32.0); CALCIUM 8.4 MG/DL (8.5-10.1); CREATININE 0.63 MG/DL (0.60-1.30)
[2017-09-14] MEDS: ONDANSETRON ODT 4 MG TAB PO PRN (11:18)
[2017-09-14] MEDS: cefTRIAXone INJ 1,000 MG in SODIUM CHLORIDE 0.9% INJ 100 ML IV SCH (11:19)
[2017-09-14] MEDS: AZITHROMYCIN 250 MG TAB PO SCH (11:19)
[2017-09-14] MEDS: MORPHINE SULFATE 4 MG/ML INJ IV PUSH PRN (11:20)
--- NOTE | 2017-09-14 14:30 | HHI.FPPN ---
Subjective Remarks Patient seen and evaluated by medical team earlier this morning. No acute events overnight per report. Patient states that he feels "a lot better" and is appreciative of his care. He states he discussed with Dr. Kovacs, urology, the plan for catheter removal after discharge. Patient states that he continues to have some mild nausea, but that it "controllable." Otherwise he has no complaints and denies any fevers, chills, shortness of breath, chest pain , NVD, abdominal pain, or calf tenderness. (Tod Patel MD R2) Objective Vitals Vital Signs Date Time Temp Pulse Resp B/P (MAP) Pulse Ox O2 Delivery O2 Flow Rate FiO2 09/14/17 14:15 63 09/14/17 12:00 97.6 54 18 168/90 (116) 99 09/14/17 10:39 98 21 09/14/17 10:11 98 Room Air 09/14/17 10:11 46 09/14/17 08:00 97.3 50 18 167/84 (111) 98 09/14/17 04:40 98.0 61 16 154/91 (112) 95 09/14/17 04:00 42 09/14/17 00:00 49 09/13/17 23:08 97.8 65 16 128/65 (86) 98 09/13/17 21:41 18 09/13/17 20:30 99 Room Air 09/13/17 20:30 61 09/13/17 19:34 98.1 54 16 124/72 (89) 98 09/13/17 16:00 98.3 52 20 131/76 (94) 96 09/13/17 15:34 55 09/13/17 15:16 97 21 I/O 09/13/17 09/13/17 09/13/17 09/14/17 09/14/17 09/14/17 07:00 15:00 23:00 07:00 15:00 23:00 Intake Total 600 ml 720 ml Output Total 2200 ml 1150 ml Balance -1600 ml -430 ml Intake Oral 600 ml 720 ml Output Urine Total 2200 ml 1150 ml # Bowel Movements 0 0 (Tod Patel MD R2) Result Diagram: 09/14/1782509/14/17825 Objective Remarks GENERAL: Thin appearing male laying in bed, in no distress. SKIN: Warm and dry. No rash. Multiple tattoos on body. HEENT: Atraumatic, normocephalic with extraocular motions intact. Pupils equal and round. No rhinorrhea. No LAD, JVD appreciated. CARDIOVASCULAR: Regular rate and rhythm without obvious murmurs, gallops, or rubs. RESPIRATORY: No increased work of breathing at this time. Clear to auscultation bilaterally with no CRW appreciated. GASTROINTESTINAL: Positive bowel sounds. Abdomen soft, nondistended. Minimally tender in lower two quadrants. No masses appreciated. Landers catheter in place without signs of irritation or hemorrhage. MUSCULOSKELETAL: No cyanosis or edema. No calf tenderness. Ambulating well without assistance. NEURO/PSYCH: Awake, alert, and oriented x3. Normal speech and judgement. Procedures Examination under anesthesia, cystoscopy and placement of Landers catheter on . (Tod Patel MD R2) A/P Assessment and Plan Patient is a 37-year-old male presenting with dysuria and flank pain found to have acute prostatitis. Discharge Planning Patient to be discharged to [facility] at this time. Case management has arranged for accommodations until patient is able to schedule outpatient appointment with urology. Patient will stay at [facility] until his appointment. He will be given bus passes to the [facility] and from the [facility] to the urology appointment. (Tod Patel MD R2) Attending Attestation Patient seen and examined. Case reviewed and discussed with the resident team. Agree with plan of care as discussed with me and documented in the resident note. agree with him getting rehab. he did well on Suboxone for a year and a half and has a plan to go back to [facility] to get clean (Elizabeth Mello MD) Problem List: (1) Prostatitis ICD Codes: N41.9 - Inflammatory disease of prostate, unspecified Status: Acute Plan: Patient with dysuria and flank pain. Admission Labs: * WBC 14.6 with 88% neutrophils. * ESR: 42. CRP: 7.43. * Lactic acid: 0.7. * Chlamydia trachomatis not detected. * N. gonorrhoeae not detected. * HIV nonreactive. Labs 09/12: * WBC 17.5. Labs 09/13: * pending. Microbiology: * Blood culture: negative to date. * Urine culture: 10-50,000 CFU/mL mixed gram-positive ester. Imaging: * Abdomen pelvis CT 09/10: Free fluid within the low pelvis as well as edematous changes within the seminal vesicles and areas of a low attenuation within the prostate. Prostatitis with possible prostate abscess would be a consideration. No free air identified. Moderate amount of stool within the colon without bowel obstruction. Incidental 2.6 cm simple cyst along the anterior margin of the spleen. * Lumbar CT 09/10: No acute findings. Consults: * Urology: Continue with indwelling Landers catheter to gravity drainage for at least 1 week. Follow-up visit at office upon discharge. [phone]. Medications: * Patient received vancomycin and Zosyn once in the ED. * Azithromycin 250mg PO q24hr. discontinued on discharge * Ceftriaxone 1g IV q24hr. discontinued on discharge * Toradol as needed for pain. Morphine for breakthrough pain. * Patient to be discharged home on ciprofloxacin 500 mg twice a day for an additional 2 weeks per urology * Patient also given ibuprofen to be used as needed for pain. * Patient prescribed tamsulosin at discharge (2) Sepsis ICD Codes: A41.9 - Sepsis, unspecified organism Status: Resolved Plan: On admission, patient met sepsis criteria with 102 fever and WBC of 14.6. Likely source of infection is UTI versus prostatitis. Lactic acid 0.7. Resolved as of 09/10. (3) UTI (urinary tract infection) ICD Codes: N39.0 - Urinary tract infection, site not specified Status: Acute Plan: On admission, UA: hazy, 300 protein, moderate occult blood, moderate leukocyte esterase, 110 RBC, 106 WBC. Microbiology: * Urine culture: 10-50,000 CFU/mL mixed gram-positive ester. Medications: * Covered with ceftriaxone 1 g IV daily. * Discharge medications as above (4) Homeless ICD Codes: Z59.0 - Homelessness Status: Chronic Plan: He is concerned about discharge with the Landers catheter and urology follow-up; the patient is homeless and has no means of transportation. Discussed case with case management concerning arrangements at discharge. (5) COPD exacerbation ICD Codes: J44.1 - Chronic obstructive pulmonary disease with (acute) exacerbation Status: Resolved Plan: Patient with extensive smoking history reporting intermittent shortness of breath and productive cough. Reports improved respiratory status. Microbiology: * Influenza A/B negative. * Sputum cultures: Pending Orders: * Incentive spirometry. * Acapella. * Respiratory CPT. Medications: * Ceftriaxone 1 g IV daily with azithromycin. * DuoNeb 1 ampule q6hrs NEB INH. * Albuterol 2.5mg q2hrs NEB INH PRN for Shortness of Breath. * Tessalon Perles 200 mg PRN for Cough. * Discharge medications as above (6) Suicidal ideation ICD Codes: R45.851 - Suicidal ideations Status: Acute Plan: Patient voiced suicidal ideations to sister, who contacted nursing staff. Patient denies suicidal ideations to physician team and nursing staff. Orders: * Sitter for precaution. Discontinued. Consults: * Psych: On psychiatric evaluation today the patient does not present any significant, concerning or acute neuropsychiatric symptoms that requires an immediate psychiatric intervention. The patient denies symptoms of depression, lala and psychosis. He denies suicidal enemas ideation, he denies visual and auditory hallucinations. The patient reports that yesterday he made a suicidal statement to his sister in the context of frustration and anger after an argument with her. He reports that he has reasons to live for, that he like his life is motivated to get better and continue his life in a rehabilitation program. He does report mild to moderate anxiety, and difficulty sleeping at night, as well and some intermittent opiate withdrawal pain and irritability. The patient does not meet criteria for involuntary psychiatric admission. Castelan act will be lifted. I will order hydroxyzine 25 mg p.o. every 8 hours as needed anxiety. Seroquel 50 mg at bedtime to help with impulse control and insomnia. We will follow-up. * Patient be discharged home on hydroxyzine as needed for anxiety with quetiapine nightly per psychiatric recommendations. 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 Patient currently with one major Hayes criteria (Echo with vegetation) and two minor criteria (IVDU and Fever), not meeting definition of endocarditis at this time. Studies: * ECHO: Normal left ventricular size and thickness. Ejection fraction 60-65% with normal wall motion. Estimated pulmonary arterial pressure 30 mmHg. Trace tricuspid regurgitation. (8) IVDU (intravenous drug user) ICD Codes: F19.90 - Other psychoactive substance use, unspecified, uncomplicated Status: Chronic Plan: On admission, patient admitted to heroin and cocaine use in 24 hours prior to arrival to ED. Avoid beta-blockers due to cocaine use. Monitor for signs of withdrawal. Labs: * UDS: opiate, cocaine and cannabinoid positive. * Hepatitis A IgM Ab nonreactive. * Hepatitis Bs Antigen nonreactive. * Hepatitis B Core IgM Ab nonreactive. * Hepatitis C IgG Ab reactive. * HCV RNA Genotype pending. * HCV RNA PCR pending. * HIV nonreactive. * Patient encouraged to avoid IV drug use at time of discharge. Patient states that he will present to start management for rehabilitation upon discharge from urology service. (9) Hepatitis C ICD Codes: B19.20 - Unspecified viral hepatitis C without hepatic coma Status: Acute Plan: Patient reports history of hepatitis C without treatment. * See plan above. (10) Tobacco abuse ICD Codes: Z72.0 - Tobacco use Status: Chronic Plan: Patient with history of tobacco use. Medications: * Nicotine patch daily. (11) Constipation ICD Codes: K59.00 - Constipation, unspecified Status: Acute Plan: Patient with reported constipation. Microbiology: * Hemoccult negative Medications: * Constipation protocol in place. (12) Nutrition, metabolism, and development symptoms ICD Codes: R63.8 - Other symptoms and signs concerning food and fluid intake Status: Acute Plan: Diet: * Regular as tolerated. Fluids: * Normal saline at 110 mL/h. discontinued on discharge. Electrolytes: * Monitor and replete as necessary. (13) DVT prophylaxis Status: Acute Plan: SCDs. (Tod Patel MD R2) Problem Qualifiers (1) Prostatitis: Qualified Codes: N41.0 - Acute prostatitis (2) Sepsis: Qualified Codes: A41.9 - Sepsis, unspecified organism (3) UTI (urinary tract infection): Qualified Codes: N30.00 - Acute cystitis without hematuria (4) Hepatitis C: Qualified Codes: B17.10 - Acute hepatitis C without hepatic coma (5) Constipation: Qualified Codes: K59.00 - Constipation, unspecified Tod Patel MD R2 Sep 14, 2017 14:30 Elizabeth Mello MD Sep 15, 2017 13:50
[2017-09-14] MEDS ORDERED: HYDR-3133 PO (14:36)
[2017-09-14] MEDS ORDERED: BACT800T5 PO (14:36)
[2017-09-14] MEDS ORDERED: TAMS5CAP PO (14:36)
[2017-09-14] MEDS ORDERED: IBUP1TAB5 PO (14:36)
--- NOTE | 2017-09-14 14:37 | HHI.DCPOC ---
Discharge Care Plan Diagnosis: (1) Urinary retention (2) Prostatitis Goals to Promote Your Health * To prevent worsening of your condition and complications * To maintain your health at the optimal level Directions to Meet Your Goals Take your medications as prescribed Follow your dietary instruction Follow activity as directed Keep your appointments as scheduled Take your immunizations and boosters as scheduled If your symptoms worsen call your PCP, if no PCP go to Urgent Care Center or Emergency Room Smoking is Dangerous to Your Health. Avoid second hand smoke Call the 24-hour hour crisis hotline for domestic abuse at Tod Patel MD R2 Sep 14, 2017 14:36
[2017-09-14] MEDS ORDERED: SERO25TA PO (14:47)
[2017-09-14] MEDS ORDERED: CIPR500T2 PO (14:47)
--- NOTE | 2017-09-14 19:31 | HHI.DS ---
Discharge Summary Admission Date Sep 10, 2017 at 09:24 Discharge Date: Sep 14, 2017 Admitting Diagnosis Sepsis. Acute prostatitis. (1) Prostatitis Diagnosis: Principal Plan: Patient with dysuria and flank pain. Admission Labs: * WBC 14.6 with 88% neutrophils. * ESR: 42. CRP: 7.43. * Lactic acid: 0.7. * Chlamydia trachomatis not detected. * N. gonorrhoeae not detected. * HIV nonreactive. Labs 09/12: * WBC 17.5. Labs 09/13: * pending. Microbiology: * Blood culture: negative to date. * Urine culture: 10-50,000 CFU/mL mixed gram-positive ester. Imaging: * Abdomen pelvis CT 09/10: Free fluid within the low pelvis as well as edematous changes within the seminal vesicles and areas of a low attenuation within the prostate. Prostatitis with possible prostate abscess would be a consideration. No free air identified. Moderate amount of stool within the colon without bowel obstruction. Incidental 2.6 cm simple cyst along the anterior margin of the spleen. * Lumbar CT 09/10: No acute findings. Consults: * Urology: Continue with indwelling Landers catheter to gravity drainage for at least 1 week. Follow-up visit at office upon discharge. [phone]. Medications: * Patient received vancomycin and Zosyn once in the ED. * Azithromycin 250mg PO q24hr. discontinued on discharge * Ceftriaxone 1g IV q24hr. discontinued on discharge * Toradol as needed for pain. Morphine for breakthrough pain. * Patient to be discharged home on ciprofloxacin 500 mg twice a day for an additional 2 weeks per urology * Patient also given ibuprofen to be used as needed for pain. * Patient prescribed tamsulosin at discharge ICD Codes: N41.9 - Inflammatory disease of prostate, unspecified Status: Acute (2) Sepsis Diagnosis: Principal Plan: On admission, patient met sepsis criteria with 102 fever and WBC of 14.6. Likely source of infection is UTI versus prostatitis. Lactic acid 0.7. Resolved as of 09/10. ICD Codes: A41.9 - Sepsis, unspecified organism Status: Resolved (3) UTI (urinary tract infection) Diagnosis: Principal Plan: On admission, UA: hazy, 300 protein, moderate occult blood, moderate leukocyte esterase, 110 RBC, 106 WBC. Microbiology: * Urine culture: 10-50,000 CFU/mL mixed gram-positive ester. Medications: * Covered with ceftriaxone 1 g IV daily. * Discharge medications as above ICD Codes: N39.0 - Urinary tract infection, site not specified Status: Acute (4) Homeless Diagnosis: Secondary Plan: He is concerned about discharge with the Landers catheter and urology follow-up; the patient is homeless and has no means of transportation. Discussed case with case management concerning arrangements at discharge. ICD Codes: Z59.0 - Homelessness Status: Chronic (5) COPD exacerbation Diagnosis: Principal Plan: Patient with extensive smoking history reporting intermittent shortness of breath and productive cough. Reports improved respiratory status. Microbiology: * Influenza A/B negative. * Sputum cultures: Pending Orders: * Incentive spirometry. * Acapella. * Respiratory CPT. Medications: * Ceftriaxone 1 g IV daily with azithromycin. * DuoNeb 1 ampule q6hrs NEB INH. * Albuterol 2.5mg q2hrs NEB INH PRN for Shortness of Breath. * Tessalon Perles 200 mg PRN for Cough. * Discharge medications as above ICD Codes: J44.1 - Chronic obstructive pulmonary disease with (acute) exacerbation Status: Resolved (6) Suicidal ideation Diagnosis: Secondary Plan: Patient voiced suicidal ideations to sister, who contacted nursing staff. Patient denies suicidal ideations to physician team and nursing staff. Orders: * Sitter for precaution. Discontinued. Consults: * Psych: On psychiatric evaluation today the patient does not present any significant, concerning or acute neuropsychiatric symptoms that requires an immediate psychiatric intervention. The patient denies symptoms of depression, lala and psychosis. He denies suicidal enemas ideation, he denies visual and auditory hallucinations. The patient reports that yesterday he made a suicidal statement to his sister in the context of frustration and anger after an argument with her. He reports that he has reasons to live for, that he like his life is motivated to get better and continue his life in a rehabilitation program. He does report mild to moderate anxiety, and difficulty sleeping at night, as well and some intermittent opiate withdrawal pain and irritability. The patient does not meet criteria for involuntary psychiatric admission. Castelan act will be lifted. I will order hydroxyzine 25 mg p.o. every 8 hours as needed anxiety. Seroquel 50 mg at bedtime to help with impulse control and insomnia. We will follow-up. * Patient be discharged home on hydroxyzine as needed for anxiety with quetiapine nightly per psychiatric recommendations. ICD Codes: R45.851 - Suicidal ideations Status: Acute (7) Vegetation of heart valve Diagnosis: Secondary Plan: Patient with history of cardiac vegetation on echocardiogram per chart review. Patient currently with one major Hayes criteria (Echo with vegetation) and two minor criteria (IVDU and Fever), not meeting definition of endocarditis at this time. Studies: * ECHO: Normal left ventricular size and thickness. Ejection fraction 60-65% with normal wall motion. Estimated pulmonary arterial pressure 30 mmHg. Trace tricuspid regurgitation. ICD Codes: I33.0 - Acute and subacute infective endocarditis Status: Resolved (8) IVDU (intravenous drug user) Diagnosis: Secondary Plan: On admission, patient admitted to heroin and cocaine use in 24 hours prior to arrival to ED. Avoid beta-blockers due to cocaine use. Monitor for signs of withdrawal. Labs: * UDS: opiate, cocaine and cannabinoid positive. * Hepatitis A IgM Ab nonreactive. * Hepatitis Bs Antigen nonreactive. * Hepatitis B Core IgM Ab nonreactive. * Hepatitis C IgG Ab reactive. * HCV RNA Genotype pending. * HCV RNA PCR pending. * HIV nonreactive. * Patient encouraged to avoid IV drug use at time of discharge. Patient states that he will present to start management for rehabilitation upon discharge from urology service. ICD Codes: F19.90 - Other psychoactive substance use, unspecified, uncomplicated Status: Chronic (9) Hepatitis C Diagnosis: Secondary Plan: Patient reports history of hepatitis C without treatment. * See plan above. ICD Codes: B19.20 - Unspecified viral hepatitis C without hepatic coma Status: Acute (10) Tobacco abuse Diagnosis: Secondary Plan: Patient with history of tobacco use. Medications: * Nicotine patch daily. ICD Codes: Z72.0 - Tobacco use Status: Chronic (11) Constipation Diagnosis: Secondary Plan: Patient with reported constipation. Microbiology: * Hemoccult negative Medications: * Constipation protocol in place. ICD Codes: K59.00 - Constipation, unspecified Status: Acute (12) Nutrition, metabolism, and development symptoms Diagnosis: Principal Plan: Diet: * Regular as tolerated. Fluids: * Normal saline at 110 mL/h. discontinued on discharge. Electrolytes: * Monitor and replete as necessary. ICD Codes: R63.8 - Other symptoms and signs concerning food and fluid intake Status: Acute (13) DVT prophylaxis Diagnosis: Principal Plan: SCDs. Status: Acute Procedures Examination under anesthesia, cystoscopy and placement of Landers catheter on . Brief History Mr. Hayes is a 37-year-old male presenting to the ED with dysuria and flank pain. Patient states that he has not urinated in over 2 days prior to being seen in the ED. He states that once he arrived to the ED he was able to urinate "a very small amount with white chunks." He states the pain while trying to urinate it was a 10/10 and very sharp in nature. He states the pain is focally located in his groin/testicles, but does endorse pain starting at his bilateral flanks radiating to his pelvis. He states that his pain is only better with sleep and is exacerbated by attempting to urinate. He denies having any blood in his urine or any penile discharge at this time. He states his testicles are not swollen, but are painful to the touch. He endorses subjective fevers prior to being seen in the ED. His only other complaint is constipation for the last 2 days, but he states that he did have a bowel movement this morning that was "very dark brown or black." Of note, the patient admits to being a routine IV drug user and has recently used IV heroin and smoked cocaine in the last 24 hours. Per chart review, patient was admitted for cellulitis and found to have an echocardiogram with vegetation concerning for possible endocarditis. During that admission, his blood cultures remained negative and patient was treated with Doxycycline at discharge. CBC/BMP: 09/14/17 0826 09/14/17 0826 Significant Findings Laboratory Tests Test 09/12/17 08:06 09/13/17 12:35 09/14/17 08:26 White Blood Count 17.5 TH/MM3 (4.0-11.0) 13.2 TH/MM3 (4.0-11.0) 13.6 TH/MM3 (4.0-11.0) Mean Corpuscular Hemoglobin 26.7 PG (27.0-34.0) 26.8 PG (27.0-34.0) Blood Urea Nitrogen 6 MG/DL (7-18) Creatinine 0.59 MG/DL (0.60-1.30) Random Glucose 131 MG/DL (74-106) Calcium Level 8.4 MG/DL (8.5-10.1) 7.7 MG/DL (8.5-10.1) 8.4 MG/DL (8.5-10.1) Sodium Level 135 MEQ/L (136-145) 135 MEQ/L (136-145) Neutrophils (%) (Auto) 79.6 % (16.0-70.0) Neutrophils # (Auto) 10.5 TH/MM3 (1.8-7.7) Monocytes # (Auto) 1.0 TH/MM3 (0-0.9) PE at Discharge GENERAL: Thin appearing male laying in bed, in no distress. SKIN: Warm and dry. No rash. Multiple tattoos on body. HEENT: Atraumatic, normocephalic with extraocular motions intact. Pupils equal and round. No rhinorrhea. No LAD, JVD appreciated. CARDIOVASCULAR: Regular rate and rhythm without obvious murmurs, gallops, or rubs. RESPIRATORY: No increased work of breathing at this time. Clear to auscultation bilaterally with no CRW appreciated. GASTROINTESTINAL: Positive bowel sounds. Abdomen soft, nondistended. Minimally tender in lower two quadrants. No masses appreciated. Landers catheter in place without signs of irritation or hemorrhage. MUSCULOSKELETAL: No cyanosis or edema. No calf tenderness. Ambulating well without assistance. NEURO/PSYCH: Awake, alert, and oriented x3. Normal speech and judgement. Hospital Course Patient was admitted for acute prostatitis and started on ceftriaxone and azithromycin. Blood cultures were negative. Urine culture showed gram positive mixed ester numbering 10-50,000 CFU. Urology was consulted and recommended cystoscopy with Landers placement. Patient underwent cystoscopy with Dr. Kovacs, urology, on 09/14/17 without abnormalities. At the end of the procedure a Landers catheter was placed. Patient was continued on antibiotics throughout hospitalization and was discharged on 09/14/17 with ciprofloxacin twice a day for an additional 14 days per urology. Patient was discharged to a hotel with instructions to follow-up with case management for his confirmed appointment with urology. He is to be evaluated by urology within the coming week for Landers catheter removal and reevaluation. Patient was counseled by medical team and case management of his discharge plans of which he voiced verbal agreement with. Patient was also discharged home on tamsulosin and ibuprofen as needed for pain. Patient also admitted to significant smoking history and presented with productive cough concerning for possible COPD exacerbation. COPD exacerbation was treated with the antibiotics as above as well as routine respiratory therapy. Of note, during hospitalization patient endorsed suicidal ideations. Psychiatry was consulted who recommends starting hydroxyzine as needed for anxiety as well as quetiapine each night. Patient states that upon discharge, he will check himself into [facility] for detoxification. He was counseled numerous times by medical team the risks of continued IV drug abuse. He was provided information by case management during the hospitalization. Per chart review, patient had history of possible vegetation on TTE. Repeat echocardiogram was performed showing no vegetation at this time. Pt Condition on Discharge: Stable Discharge Disposition: Discharge Home Discharge Instructions DIET: Follow Instructions for: As Tolerated, No Restrictions Activities you can perform: Regular-No Restrictions, See Additionl Instruction Other Activity Instructions: Landers in place, patient educated by staff for care instructions. Follow up Referrals: PCP Follow-up - 3-5 Days Urology - 1 Week with Byron Kovacs MD New Medications: Ciprofloxacin (Ciprofloxacin) 500 Mg Tab 500 MG PO BID for Infection, #28 TAB 0 Refills Hydroxyzine HCl (Hydroxyzine HCl) 25 Mg Tab 25 MG PO Q8H PRN for anxiety , #60 TAB Ibuprofen (Ibuprofen) 400 Mg Tab 400 MG PO Q6H PRN for PAIN SCALE 5 TO 10, #30 TAB Quetiapine (Seroquel) 25 Mg Tab 50 MG PO HS, #30 TAB Tamsulosin (Flomax) 0.4 Mg Cap 0.4 MG PO DAILY, #30 CAP Tod Patel MD R2 Sep 14, 2017 19:31
== END 2017-09-14 18:31 | disposition home or self-care (01) | DRG 872 ==
LOC: NEPE 04:05 → NEDA 09:24 → N04B 12:52
PROVIDERS: ADMIT Family Medicine; ATTEND Family Medicine
PROC: 0T9B80Z Drainage of Bladder with Drainage Device, Via Natural or Artificial Opening Endoscopic (ICD-10-PCS; principal; 2017-09-12 15:33)
DX: A41.9 Sepsis, unspecified organism (principal); R45.851 Suicidal ideations; B17.10 Acute hepatitis C without hepatic coma; J44.1 Chronic obstructive pulmonary disease with (acute) exacerbation; F11.23 Opioid dependence with withdrawal; N41.0 Acute prostatitis; N41.2 Abscess of prostate; N39.0 Urinary tract infection, site not specified; K59.00 Constipation, unspecified; G47.00 Insomnia, unspecified; F14.10 Cocaine abuse, uncomplicated; F12.90 Cannabis use, unspecified, uncomplicated; F31.9 Bipolar disorder, unspecified; F41.9 Anxiety disorder, unspecified; Z59.0 Homelessness; Z66 Do not resuscitate; Z72.0 Tobacco use; Z81.3 Family history of other psychoactive substance abuse and dependence; Z82.49 Family history of ischemic heart disease and other diseases of the circulatory system
CPT/HCPCS: 71045; 72132; 74177; 80048; 80053; 80074; 80307; 81001; 83605; 83690; 83735; 84443; 85025; 85027; 85610; 85652; 85730; 86140; 87040; 87086; 87389; 87491; 87522; 87591; 87804; 87902; 93005; 93306; 94150; 94640; 94664; 94667; 94668; 96365; 96367; G0475; G8987-GP; G8988-GP; J0330; J0696; J1644; J1885; J2250; J2270; J2405; J2543; J3010; J3370; J7030; J7050; J7120; Q9967